=== PATIENT | male | born 1955 | race Caucasian/White ===

== ENCOUNTER 2016-12-24 19:26 | Emergency (ER) | payer OTHER ==
[~2016-12-24] VITALS: Ht 165.1 cm; Wt 83.5 kg
[~2016-12-24 19:26] MED LIST: ASPI81TA28 PO; CHOL100010 PO; HYD50 PO; LAMO1TAB21 PO; LEVO25TA5 PO; LISI-461 PO; LRS20 PO; MELO7.5T5 PO; METO-478 PO; OXYC-57 PO; PANT40TA2 PO; POTA20TA13 PO; PRAV40TA2 PO; RANI300T PO; SUMA100T16 PO
[2016-12-24 19:33] VITALS: TEMP 36.6; Ht 165.1 cm; Wt 83.5 kg
[2016-12-24] MEDS ORDERED: METOCLOPRAMIDE HCL INJ 5 MG/ML 2 ML VIAL IV STA (19:51)
[2016-12-24] MEDS ORDERED: DiphenhydrAMINE HCL 50 MG/ML VIAL IV STA (19:51)
[2016-12-24] MEDS ORDERED: SODIUM CHLORIDE 0.9% 1000ML 1,000 ML IV STA (19:51)
[2016-12-24] MEDS ORDERED: DEXAMETHASONE SOD INJ 4 MG/ML VIAL IV STA (19:51)
[2016-12-24] MEDS ORDERED: MoRPHine SULFATE 10 MG/ML CARP/VIAL IV STA (19:51)
[2016-12-24] MEDS ORDERED: CHOL1TAB76 PO (20:07)
[2016-12-24 21:25] VITALS: BP 139/83; PULSE 64; O2SAT 97
--- NOTE | 2016-12-25 02:07 | EMERGENCY ROOM VISIT NOTE ---
History Report prepared by Tasha: Richard Rollins Under the Supervision of: Dr. Ruddy Rea M.D. First contact with patient: 19:37 Chief Complaint: HEADACHE Stated Complaint: MIRGRAINE History of Present Illness The patient is a 61 year old male who presents to the Emergency Room with complaints of a constant migraine headache that began this afternoon, several hours prior to arrival. The patient is also complaining of nausea, but has not vomited. The patient's states that he has not eaten much throughout the day today. He denies any loss of consciousness or fevers. The patient has a history of migraine headaches and states that this episode is very similar to those that he has had in the past. He took Percocet, Imitrex, and Naproxen for his symptoms , without any relief. The patient has followed with pain management, who recently discharged him to the medical center as they say there is nothing more that can be done for him at this time. 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 A total of ten systems were reviewed and were otherwise negative. Past Medical & Surgical Medical Problems: (1) Acute renal failure syndrome (2) Benign hypertension (3) Candidiasis of the esophagus (4) Cervical Disc Degen (5) Cervical Spinal Stenosis (6) Cervical Spondylosis (7) Chronic back pain (8) Esophageal Reflux (9) Excessive cerumen in ear canal (10) Increased lipid (11) Jaw pain (12) Migraine (13) Migraine (14) Migraine (15) Migraine (16) Sleep apnea (17) Trigeminal neuralgia Social History Problems: (1) Cervical Spondylosis Family History Patient reports no known family medical history. Social History Smoking Status: Never Smoker Drug Use: none Marital Status: Housing Status: lives with family Occupation Status: employed Current/Historical Medications Scheduled Aspirin (Aspirin Ec), 81 MG PO DAILY Baclofen (Baclofen), 20 MG PO HS Cholecalciferol (D 2000), 2,000 UNITS PO DAILY Hydrochlorothiazide (Hydrochlorothiazide), 25 MG PO DAILY Lamotrigine (Lamotrigine), 100 MG PO BID Levothyroxine Sodium (Levothyroxine Sodium), 25 MCG PO DAILY Lisinopril (Lisinopril), 10 MG PO DAILY Metoprolol Succinate (Toprol Xl), 25 MG PO DAILY Pantoprazole (Pantoprazole Sodium), 40 MG PO DAILY Potassium Chloride Microencaps (Potassium Chloride Er), 20 MEQ PO DAILY Pravastatin Sodium (Pravastatin Sodium), 40 MG PO DAILY Ranitidine Hcl (Zantac), 300 MG PO BID Sumatriptan Succinate (Imitrex), 100 MG PO PRN Scheduled PRN Meloxicam (Mobic), 7.5 MG PO BID PRN for Oxycodone/Acetaminophen 5MG/325MG (Percocet 5MG/325MG), 1-2 TABLETS PO for Pain Allergies Coded Allergies: No Known Allergies (Unverified , 12/24/16) Physical Exam Vital Signs Date Time Temp Pulse Resp B/P Pulse Ox O2 Delivery O2 Flow Rate FiO2 12/24/16 21:25 64 18 139/83 97 Room Air 12/24/16 19:33 36.6 67 20 135/77 98 Room Air Physical Exam GENERAL: Awake, alert, uncomfortable appearing, no distress HENT: Normocephalic, atraumatic. TM's normal. Oropharynx unremarkable. EYES: PERRL. EOMI. Normal conjunctiva. Sclera non-icteric. NECK: Supple. No nuchal rigidity. FROM. No JVD or bruit. RESPIRATORY: CTA CARDIAC: RRR. No murmur. ABDOMEN: Soft, non distended. No tenderness to palpation. No rebound or guarding. No masses. RECTAL: Deferred. MUSCULOSKELETAL: Unremarkable. No edema. No discoloration. Gross motor strength symmetric. NEURO: Cranial nerves 2-12 grossly intact. Normal sensorium. No sensory or motor deficits noted. Speech normal. No pronator drift. SKIN: No rash or jaundice noted. LYMPH: No adenopathy. Medical Decision & Procedures Medications Administered Medications (Trade) Dose Ordered Sig/Christiano Route Start Time Stop Time Status Last Admin Dose Admin Sodium Chloride (Nss 1000ml) 1,000 ml @ 999 mls/hr Q1H1M STAT IV 12/24/16 19:51 12/24/16 20:51 DC 12/24/16 19:51 999 MLS/HR Metoclopramide HCl (Reglan Inj) 10 mg NOW STAT IV 12/24/16 19:51 12/24/16 19:54 DC 12/24/16 20:02 10 MG Diphenhydramine HCl (Benadryl Inj) 25 mg NOW STAT IV 12/24/16 19:51 12/24/16 19:54 DC 12/24/16 20:03 25 MG Dexamethasone Sodium Phosphate (Decadron Inj) 10 mg NOW STAT IV 12/24/16 19:51 12/24/16 19:54 DC 12/24/16 20:03 10 MG Morphine Sulfate (MoRPHine SULFATE INJ) 6 mg NOW STAT IV 12/24/16 19:51 12/24/16 19:54 DC 12/24/16 20:02 6 MG ED Course 1941: The patient was evaluated in room B6. A complete history and physical exam was performed. 1950: Ordered Morphine 6 mg IV, Decadron 10 mg IV, Benadryl 25 mg IV, Reglan 10 mg IV, Sodium Chloride 1000 mL @ 999 mL/hr IV. 2030: I checked on the patient at this time. He is starting to feel better following his medications. He would like to rest longer in the Department at this time. 2126: I reevaluated the patient. Discussed results and discharge instructions: He verbalized understanding and agreement. The patient is ready for discharge. Medical Decision Prior records/ancillary studies reviewed. Triage Nursing notes reviewed and agree them. The patient's history was concerning for headache. Differential diagnosis: Etiologies such as migraine headache, meningitis, sinusitis, CO exposure, ICH, SAH, infection, tumor, headache, sinus thrombosis, arterial dissection, as well as others were entertained. Physical examination findings: As above. Non-focal. ER treatment provided: IV Reglan 10 mg IV Benadryl 25 mg IV Decadron 10 mg IV morphine 6 mg On reassessment the patient felt much better. He desired discharge. Diagnostics interpreted by me: Deferred The patient has a long history of migraines. He does well managing himself at home and has had only a few visits to the emergency department over the last several years. He was treated with similar medications he has received in the past and did very well with this. The patient felt comfortable with conservative management. If He worsens in anyway he will come back. By the evaluation outlined above emergent etiologies such as meningitis, sinusitis, CO exposure, ICH, SAH, infection, temporal arteritis, tumor, sinus thrombosis, arterial dissection, as well as others were deemed relatively unlikely. The patient and were informed about the findings as listed above. All questions were answered and they were pleased with the treatment. Return instructions were outlined and the patient was discharged in stable condition. Outpatient prescription management: No change Referral: The patient was referred back to his neurologist or primary care physician for follow-up in 2 to 3 days for a recheck of the current condition. The chart was completed utilizing [employer] Speech voice recognition software. Grammatical errors, random word insertions, pronoun errors, and incomplete sentences are an occasional consequence of this system due to software limitations, ambient noise, and hardware issues. Any formal questions or concerns about the content, text, or information contained within the body of this dictation should be directly addressed to the physician for clarification. Impression Primary Impression: Headache Scribe Attestation The scribe's documentation has been prepared under my direction and personally reviewed by me in its entirety. I confirm that the note above accurately reflects all work, treatment, procedures, and medical decision making performed by me. Departure Information Dispostion Home / Self-Care Referrals (PCP) Forms HOME CARE DOCUMENTATION FORM, IMPORTANT VISIT INFORMATION Patient Instructions My [facility] Additional Instructions HEADACHE INSTRUCTIONS: DO NOT drive, drink alcohol, operate machinery, or perform dangerous activities today. You were given medications in the ER that can affect your ability to safely function or operate a vehicle. Rest today in a quiet, peaceful, dark environment and get a full 8-10 hrs of sleep tonight. Avoid loud noises, smoke/smoking, alcohol, bright lights, stress, or physical exertion today to minimize the chance the headache may return. Continue current medications. Ibuprofen(Motrin, Advil) may be used for fever or pain. Use 600mg every six hours as needed. Take with food. Avoid using more than 2400mg in a 24 hour period. Do not use 2400mg per day for more than three consecutive days without physician direction. Prolonged inappropriate use can lead to stomach upset or ulcers. (AND/OR) Acetaminophen(Tylenol) may be used for fever or pain. Use 1000mg every six hours as needed. Avoid using more than 4000mg in a 24 hour period. Return to the ER for passing out, worsening headache, vision problems, neck stiffness/pain, fevers, vomiting, worsening of your condition, or as needed. Follow up with your primary physician or neurologist in 2-3 days for a recheck of your current condition. Problem Qualifiers Primary Impression: Headache Headache type: unspecified Headache chronicity pattern: acute headache Intractability: not intractable Qualified Codes: R51 - Headache
== END 2016-12-24 21:55 | disposition home or self-care (01) ==
LOC: C.EDB 19:27
DX: R51 Headache (principal); R11.0 Nausea; G47.30 Sleep apnea, unspecified

== ENCOUNTER → 2017-02-11 | Outpatient (CLI) | payer OTHER ==
[~2017-02-11] MED LIST changes: -CHOL100010 PO; +CHOL1TAB76 PO
[2017-02-11 13:39] LABS: ALT/SGPT 27 U/L (12-78); AST/SGOT 16 U/L (15-37); BLOOD UREA NITROGEN 26 mg/dl (7-18); BUN/CREATININE RATIO 19.7 (10-20); CARBON DIOXIDE 31 mmol/L (21-32); CHLORIDE 104 mmol/L (98-107); GLUCOSE 89 mg/dl (70-99); MAGNESIUM 2.1 mg/dl (1.8-2.4); POTASSIUM 4.1 mmol/L (3.5-5.1); SODIUM 141 mmol/L (136-145)
[2017-02-11 13:46] LABS: ALB/GLOB RATIO 1.2 (0.9-2); ALKALINE PHOSPHATASE 29 U/L (45-117); CHOLESTEROL 169 mg/dl (0-200); CHOLESTEROL/HDL RATIO 4.4; HDL CHOLESTEROL 38 mg/dl; LDL CHOLESTEROL CALCULATED 83 mg/dl; TRIGLYCERIDES 240 mg/dl (0-150); VERY LOW DENSITY LIPOPROT CALC 48 mg/dl
== END | disposition home or self-care (01) ==
LOC: C.LABPVFM 09:34
PROVIDERS: ATTEND Family Medicine
DX: E03.9 Hypothyroidism, unspecified (principal); I10 Essential (primary) hypertension; M54.2 Cervicalgia; E78.1 Pure hyperglyceridemia; K21.9 Gastro-esophageal reflux disease without esophagitis

== ENCOUNTER → 2017-09-21 | Outpatient (CLI) | payer OTHER ==
[~2017-09-21] VITALS: Ht 165.1 cm; Wt 88.1 kg
[2017-09-21 15:39] VITALS: BP 124/75; PULSE 82; Ht 165.1 cm; Wt 88.1 kg
== END | disposition home or self-care (01) ==
LOC: C.NEUR 15:23
PROVIDERS: ATTEND Physician Assistant
DX: G47.33 Obstructive sleep apnea (adult) (pediatric) (principal)

== ENCOUNTER → 2017-12-29 | Outpatient (CLI) | payer OTHER ==
[2017-12-29 13:05] LABS: BASO % 0.8 %; BASO ABS # 0.03 K/uL (0-0.2); EOS % 4.1 %; EOS ABS # 0.15 K/uL (0-0.5); HEMATOCRIT 36.8 % (42-52); HEMOGLOBIN 12.3 g/dL (14.0-18.0); LYMPH % 21.5 %; LYMPH ABS # 0.79 K/uL (1.2-3.4); MEAN CELL VOLUME 87.8 fL (80-100); MEAN CORPUSCULAR HEMOGLOBIN 29.4 pg (25-34); MEAN CORPUSCULAR HGB CONC 33.4 g/dl (32-36); MEAN PLATELET VOLUME 10.1 fL (7.4-10.4); MONO ABS # 0.59 K/uL (0.11-0.59); NEUT % 57.6 %; NEUT ABS # 2.12 K/uL (1.4-6.5); PLATELET COUNT 249 K/uL (130-400); RED CELL DISTRIBUTION WIDTH CV 13.9 % (11.5-14.5); RED CELL DISTRIBUTION WIDTH SD 44.2 fL (36.4-46.3); WHITE BLOOD COUNT 3.68 K/uL (4.8-10.8)
[2017-12-29 13:54] LABS: BLOOD UREA NITROGEN 27 mg/dl (7-18); CARBON DIOXIDE 28 mmol/L (21-32); CREATININE 1.67 mg/dl (0.60-1.40); GLUCOSE 98 mg/dl (70-99); POTASSIUM 4.1 mmol/L (3.5-5.1); SODIUM 136 mmol/L (136-145)
== END | disposition home or self-care (01) ==
LOC: C.LABPVFM 07:39
PROVIDERS: ATTEND Family Medicine
DX: C44.90 Unspecified malignant neoplasm of skin, unspecified (principal)

== ENCOUNTER 2020-11-14 14:53 | Inpatient (IN) ==
[2020-11-14] MEDS ORDERED: ONDANSETRON INJ 2 MG/ML 2 ML VIAL IV STA (15:22)
[2020-11-14] MEDS ORDERED: MoRPHine SULFATE 4 MG/ML 1 ML CARP\\VIAL IV STA (15:22)
[2020-11-14] MEDS ORDERED: SODIUM CHLORIDE 0.9% 1000ML 1,000 ML IV SCH (15:30)
[2020-11-14] MEDS ORDERED: FAMOTIDINE 20MG IV PUSH 20 MG/5 ML SYR IV STA (15:33)
--- NOTE | 2020-11-14 15:46 | XRay Report ---
XR chest 1V portable CLINICAL HISTORY: Chest Pain COMPARISON STUDY: Chest radiograph November 07, 2020. FINDINGS: Lung volumes are normal. Lungs are clear. There is no pneumothorax or pleural effusion. Car diac size is normal. Mediastinal contours are normal. There is no evidence for pulmonary edema. IMPRESSION: No acute cardiopulmonary findings. ACT 112: Negative or not required by law. Electronically signed by: Hector Lazar M.D. 11/14/2020 3:44 PM
[2020-11-14 15:50] LABS: Basophils # (auto) 0.01 K/uL (0-0.2); Basophils % (auto) 0.1 %; Eosinophils # (auto) 0.05 K/uL (0-0.5); Eosinophils % (auto) 0.4 %; Hematocrit (blood only) 37.8 % (42-52); Hemoglobin 13.1 g/dL (14.0-18.0); Immature Granulocytes # (auto) 0.02 K/uL (0.00-0.02); Immature Granulocytes % (auto) 0.2 %; Lymphocytes # (auto) 0.65 K/uL (1.2-3.4); Lymphocytes % (auto) 5.5 %; Mean Corpuscular Hemoglobin 29.9 pg (25-34); Mean Corpuscular Hgb Conc 34.7 g/dL (32-36); Mean Corpuscular Volume 86.3 fL (80-100); Mean Platelet Volume 9.5 fL (7.4-10.4); Monocytes # (auto) 1.08 K/uL (0.11-0.59); Monocytes % (auto) 9.1 %; Neutrophils # (auto) 10.01 K/uL (1.4-6.5); Neutrophils % (auto) 84.7 %; Platelet Count 371 K/uL (130-400); RDW Coefficient of Variation 13.1 % (11.5-14.5); RDW Standard Deviation 41.4 fL (36.4-46.3); Red Blood Count 4.38 M/uL (4.7-6.1); White Blood Count 11.82 K/uL (4.8-10.8)
[2020-11-14] MEDS ORDERED: OPTIRAY 320 100ml IV ONE (15:56)
--- NOTE | 2020-11-14 15:59 | Emergency Department Note ---
Impression & Plan Acute pancreatitis, Abdominal pain ED Provider Note NAME: LEIDY FUENTES AGE: 65 SEX: M : 1955 ARRIVES VIA: Walk-In INFORMANT: Patient, ED PROVIDER(S): Ferdinand Chavez DO CHIEF COMPLAINT: Abdominal pain HPI: The patient is a 65-year-old male who presented to the emergency department for an evaluation of abdominal pain. The patient describes abdominal pain which began yesterday and into today. He states the pain is moderate to severe and worsened with any movement or palpation over the abdomen. He notices nausea. He notices no diarrhea. He has not had a fever. He denies having any chest pain or difficulty breathing at this time. He was seen in our facility recently for different complaints. The patient had chest pain and was diagnosed with bronchitis. At that time the patient was started on steroids. He has no history of peptic ulcer disease. He took some of his significant other his pain medication with only minimal relief of his pain. He denies having any rectal bleeding or hematemesis. He states he tried to take his medications this morning and it did make the pain somewhat worse. ROS: See above HPI for pertinent positives & negatives. A total of 10 systems reviewed and were otherwise negative. PAST MEDICAL HISTORY: See Below PAST SURGICAL HISTORY: See Below FAMILY HISTORY: See Below SOCIAL HISTORY: See Below HOME MEDICATIONS: See Below ALLERGIES: See Below VITALS: See Below PHYSICAL EXAMINATION: GENERAL: The patient is awake and alert. He is very anxious appearing and appears to be in significant pain. EYES: The conjunctivae are clear. The pupils are round and reactive. EARS, NOSE, MOUTH AND THROAT: The nose is without any evidence of any deformity. NECK: The neck is nontender and supple. RESPIRATORY: Normal respiratory effort is noted there is no evidence of wheezing rhonchi or rales CARDIOVASCULAR: Regular rate and rhythm noted there no murmurs rubs or gallops normal S1 normal S2. GASTROINTESTINAL: The abdomen is moderately distended and diffusely tender. There is some guarding in the lower abdomen. MUSCULOSKELETAL/EXTREMITIES: There is no evidence of gross deformity full range of motion is noted in the hips and shoulders. SKIN: There is no obvious evidence of any rash. There are no petechiae, pallor or cyanosis noted. NEUROLOGIC: Patient is awake alert and oriented x3. MEDICAL DECISION MAKING: The patient is a 65-year-old male who presented to the emergency department with upper abdominal pain. The patient presented with acute onset of abdominal pain over the last 24 hours. His physical exam was very worrisome for surgical abdomen. He was guarding across the lower abdomen. He was treated with IV fluids and IV pain medication in the emergency department. He was also treated with IV Pepcid. On reevaluation he was somewhat improved. I discussed the patient's laboratory and radiographic studies with him. CT the abdomen and pelvis appeared to be consistent with pancreatitis. Lipase was very elevated. The patient does not drink alcohol. The patient does not appear to have any abnormalities in his LFTs. Given the patient's findings on CT as well as laboratory [facility] They will evaluate the patient in the emergency department for further management and disposition. Triage Nursing notes reviewed. Prior medical records reviewed Vital Signs: reviewed and remarkable for no significant abnormalities Differential diagnosis: Etiologies such as appendicitis, diverticulitis, obstruction, inflammatory bowel disease, renal colic, PUD, biliary pathology, pancreatitis, mesenteric ischemia, aortic pathology, infections, genitourinary, UTI, perforated viscus, as well as others were entertained. ER treatment provided: See below Diagnostics interpreted by me: ECG: EKG was obtained in the emergency department. My interpretation is sinus bradycardia at 58 bpm. There was no ectopy. There was no acute ST segment abnormalities. This was compared to a tracing from November 07, 2020. No significant changes were noted. Cardiac Monitoring: An order was placed for continuous cardiac monitoring. The monitor shows a rate of 82 bpm with sinus rhythm. Laboratory studies: As stated above and show below. Imaging studies: See below Consultation(s): [id number]: I discussed this case with Dr. Fleming who is on-call for the [facility] hospitalist group. 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 Beliefs That Will Affect Care: None marital status: Current Living Situation: Spouse current occupational status: employed Feels Safe at Home: Yes caffeine: Yes Dental Care, Regularly: Yes Physical Activity Frequency: Daily Seatbelt Use: never Sunscreen Use: Yes Assistive Devices: Glasses Allergies Allergies Allergy/AdvReac Type Severity Reaction Status Date / Time No Known Allergies Allergy Verified 11/14/20 16:14 Home Meds Home Medications Medication Instructions Recorded Confirmed Nicotinamide Supplement 500 mg PO QPM 11/25/19 11/14/20 Slow-Mag 71.5 mg PO QAM 11/25/19 11/14/20 albuterol sulfate 2 inh INHALATION Q6H PRN 11/14/20 11/14/20 atorvastatin 20 mg PO QPM 11/14/20 11/14/20 levothyroxine 25 mcg PO QPM 11/14/20 11/14/20 lisinopril 10 mg PO QPM 11/14/20 11/14/20 oxycodone-acetaminophen [Percocet] 1 - 2 tab PO DAILY PRN 11/14/20 11/14/20 Previous Rx's Medication Instructions Recorded metoprolol succinate 25 mg 25 mg PO DAILY #30 tab 06/15/20 tablet,extended release 24 hr omeprazole 40 mg capsule,delayed 40 mg PO DAILY #30 cap 07/06/20 release potassium chloride 20 mEq 20 meq PO QAM #30 tab 07/21/20 tablet,extended release fenofibrate nanocrystallized 145 145 mg PO QAM #30 tab 11/23/20 mg tablet hydrochlorothiazide 50 mg tablet 50 mg PO QAM #90 tab 09/21/20 levofloxacin 750 mg tablet 750 mg PO DAILY 7 Days #7 tab 11/10/20 prednisone 20 mg tablet See Rx Instructions PO .COMPLEX 11/10/20 #30 tab Results & Data (ED) Vital Signs Vital Signs - 24 hr 11/14/20 15:01 11/14/20 15:46 11/14/20 15:48 Temperature 36.8 C Temperature Source Oral Pulse Rate 79 Pulse Rate [Apical] 72 Pulse Rate from SpO2 Sensor Pulse Rhythm Regular Pulse Strength Normal Respiratory Rate 18 24 Respiratory Effort / Characteristics Non-Labored Spontaneous Respiratory Depth Normal Normal Respiratory Pattern Regular Blood Pressure 120/65 Blood Pressure [Right Arm] 132/79 Blood Pressure Mean 83 Blood Pressure Mean [Right Arm] 96 Blood Pressure Position Sitting Pulse Oximetry 97 99 Oxygen Delivery Method Room Air Room Air Room Air Sepsis Recent Fever Within 48 Hours No Sepsis New/Unexplained Change in Mental Status N/A Sepsis Action Taken by Nursing No Action Required 11/14/20 16:05 Temperature Temperature Source Pulse Rate 63 Pulse Rate [Apical] Pulse Rate from SpO2 Sensor 61 Pulse Rhythm Pulse Strength Respiratory Rate 19 Respiratory Effort / Characteristics Respiratory Depth Respiratory Pattern Blood Pressure Blood Pressure [Right Arm] Blood Pressure Mean Blood Pressure Mean [Right Arm] Blood Pressure Position Pulse Oximetry 100 Oxygen Delivery Method Room Air Sepsis Recent Fever Within 48 Hours Sepsis New/Unexplained Change in Mental Status Sepsis Action Taken by [facility] Medications Current Medication List: was personally reviewed by me Laboratory Data Attestation: I reviewed the patient's lab results. Result diagrams: 11/14/20 15:37 11/14/20 15:37 Lab Results 11/14/20 11/14/20 11/14/20 Range/Units 15:37 15:37 15:37 WBC 11.82 H (4.8-10.8) K/uL RBC 4.38 L (4.7-6.1) M/uL Hgb 13.1 L (14.0-18.0) g/dL POC Hgb (14.0-18.0) g/dl Hct 37.8 L (42-52) % POC Hct (42-52) % MCV 86.3 (80-100) fL MCH 29.9 (25-34) pg MCHC 34.7 (32-36) g/dL RDW Std Deviation 41.4 (36.4-46.3) fL RDW Coeff of Uyen 13.1 (11.5-14.5) % Plt Count 371 (130-400) K/uL MPV 9.5 (7.4-10.4) fL Immature Gran % (Auto) 0.2 % Neut % (Auto) 84.7 % Lymph % (Auto) 5.5 % [place] % (Auto) 9.1 % Eos % (Auto) 0.4 % Baso % (Auto) 0.1 % Neut # (Auto) 10.01 H (1.4-6.5) K/uL Lymph # (Auto) 0.65 L (1.2-3.4) K/uL [place] # (Auto) 1.08 H (0.11-0.59) K/uL Eos # (Auto) 0.05 (0-0.5) K/uL Baso # (Auto) 0.01 (0-0.2) K/uL Immature Gran # (Auto) 0.02 (0.00-0.02) K/uL PT 10.9 (9.0-12.0) Seconds INR 1.1 (0.9-1.1) APTT 25.1 (21.0-31.0) Seconds PTT Ratio 1.0 POC Sodium (135-144) mmol/L Sodium 139 (136-145) mmol/L POC Potassium (3.3-5.0) mmol/L Potassium 3.5 (3.5-5.1) mmol/L POC Chloride (101-112) mmol/L Chloride 107 (98-107) mmol/L Carbon Dioxide 25 (21-32) mmol/L POC Total CO2 (24-31) mmol/L Anion Gap 7.0 (3-11) POC Anion Gap (16-25) mmol/L POC BUN (7-18) mg/dl BUN 27 H (7-18) mg/dl Creatinine 1.34 (0.6-1.4) mg/dl POC Creatinine (0.6-1.3) mg/dl Est Cr Clr Drug Dosing Not Reportable Est GFR ( Amer) 64.4 Est GFR (Non-Af Amer) 55.6 BUN/Creatinine Ratio 20.3 H (10-20) Glucose 87 (70-99) mg/dl POC Glucose (other) (70-99) mg/dl Calcium 8.8 (8.5-10.1) mg/dl POC Ioniz Calcium Michelle (1.12-1.32) mmol/l Total Bilirubin 0.5 (0.2-1) mg/dl AST 8 L (15-37) U/L ALT 19 (12-78) U/L Alkaline Phosphatase 21 L (45-117) U/L Troponin I < 0.015 (0-0.045) ng/ml Total Protein 7.4 (6.4-8.2) gm/dl Albumin 3.5 (3.4-5.0) gm/dl Globulin 3.9 (2.5-4.0) gm/dl Albumin/Globulin Ratio 0.9 (0.9-2) Lipase 32716 H (73-393) U/L COVID-19 Eval Order 11/14/20 11/14/20 Range/Units 15:42 16:53 WBC (4.8-10.8) K/uL RBC (4.7-6.1) M/uL Hgb (14.0-18.0) g/dL POC Hgb 12.9 L (14.0-18.0) g/dl Hct (42-52) % POC Hct 38 L (42-52) % MCV (80-100) fL MCH (25-34) pg MCHC (32-36) g/dL RDW Std Deviation (36.4-46.3) fL RDW Coeff of Uyen (11.5-14.5) % Plt Count (130-400) K/uL MPV (7.4-10.4) fL Immature Gran % (Auto) % Neut % (Auto) % Lymph % (Auto) % [place] % (Auto) % Eos % (Auto) % Baso % (Auto) % Neut # (Auto) (1.4-6.5) K/uL Lymph # (Auto) (1.2-3.4) K/uL [place] # (Auto) (0.11-0.59) K/uL Eos # (Auto) (0-0.5) K/uL Baso # (Auto) (0-0.2) K/uL Immature Gran # (Auto) (0.00-0.02) K/uL PT (9.0-12.0) Seconds INR (0.9-1.1) APTT (21.0-31.0) Seconds PTT Ratio POC Sodium 138 (135-144) mmol/L Sodium (136-145) mmol/L POC Potassium 3.5 (3.3-5.0) mmol/L Potassium (3.5-5.1) mmol/L POC Chloride 104 (101-112) mmol/L Chloride (98-107) mmol/L Carbon Dioxide (21-32) mmol/L POC Total CO2 25 (24-31) mmol/L Anion Gap (3-11) POC Anion Gap 13.0 L (16-25) mmol/L POC BUN 26 H (7-18) mg/dl BUN (7-18) mg/dl Creatinine (0.6-1.4) mg/dl POC Creatinine 1.2 (0.6-1.3) mg/dl Est Cr Clr Drug Dosing Est GFR ( Amer) Est GFR (Non-Af Amer) BUN/Creatinine Ratio (10-20) Glucose (70-99) mg/dl POC Glucose (other) 92 (70-99) mg/dl Calcium (8.5-10.1) mg/dl POC Ioniz Calcium Michelle 1.19 (1.12-1.32) mmol/l Total Bilirubin (0.2-1) mg/dl AST (15-37) U/L ALT (12-78) U/L Alkaline Phosphatase (45-117) U/L Troponin I (0-0.045) ng/ml Total Protein (6.4-8.2) gm/dl Albumin (3.4-5.0) gm/dl Globulin (2.5-4.0) gm/dl Albumin/Globulin Ratio (0.9-2) Lipase (73-393) U/L COVID-19 Eval [facility] Administered Medications Discontinued Medications Sodium Chloride (Nss 1000ml) 1,000 mls @ 999 mls/hr IV .Q1H1M VITALIY Stop: 11/14/20 16:30 Last Infusion: 11/14/20 16:59 Dose: 0 mls/hr Documented by: [id number] Admin: 11/14/20 15:36 Dose: 999 mls/hr Documented by: [id number] Famotidine (Pepcid 20mg Iv Push) 20 mg in 5 mls @ 2.5 mls/min IV NOW STA Stop: 11/14/20 15:34 Last Admin: 11/14/20 15:42 Dose: 2.5 mls/min Documented by: [id number] Ioversol (Ioversol 100ml) 92 ml IV ONCE ONE Stop: 11/14/20 15:57 Last Admin: 11/14/20 15:56 Dose: 92 ml Documented by: [id number] Morphine Sulfate (Morphine Sulfate 4 Mg/Ml 1 Ml Carp\Vial) 4 mg IV NOW STA Stop: 11/14/20 15:23 Last Admin: 11/14/20 15:42 Dose: 4 mg Documented by: [id number] Ondansetron HCl (Ondansetron Inj 2 Mg/Ml 2 Ml Vial) 4 mg IV NOW STA Stop: 11/14/20 15:23 Last Admin: 11/14/20 15:42 Dose: 4 mg Documented by: [id number] Imaging Data Radiologist's Impression: Patient: LEIDY FUENTES Admit Date: 11/14/20 MR#: [id number] Address1: [address] [place] [address] Acct ID:[id number] Address2: [facility] [address] Date: 1955 [facility] Zip: [place] [address] Age: 65 Location: ED Sex: M Room/Bed: Att Phy: Diagnosis: SEVERE ABD PAIN,NAUSEA Penny Phy: Lisa Russo MD Service Date: 11/14/20 [facility] Phy: Interpreting Phy: Hector Lazar MD Admit Phy: Ordering Phy: Ferdinand Chavez DO cc: ~ XR chest 1V portable CLINICAL HISTORY: Chest Pain COMPARISON STUDY: Chest radiograph November 07, 2020. FINDINGS: Lung volumes are normal. Lungs are clear. There is no pneumothorax or pleural effusion. Cardiac size is normal. Mediastinal contours are normal. There is no evidence for pulmonary edema. IMPRESSION: No acute cardiopulmonary findings. ACT 112: Negative or not required by law. Electronically signed by: Hector Lazar M.D. 11/14/2020 3:44 PM Dictated: 11/14/20 1543 Transcribed: 11/14/20 1543 Patient: LEIDY FUENTES Admit Date: 11/14/20 MR#: [id number] Address1: [address] [place] [address] Acct ID:[id number] Address2: [address] Date: 1955 [facility] Zip: [place] [address] Age: 65 Location: ED Sex: M Room/Bed: Att Phy: Diagnosis: SEVERE ABD PAIN,NAUSEA Penny Phy: Lisa Russo MD Service Date: 11/14/20 [facility] Phy: Interpreting Phy: Hector Lazar MD Admit Phy: Ordering Phy: Ferdinand Chavez DO cc: ~ CT OF THE ABDOMEN AND PELVIS WITH CONTRAST CLINICAL HISTORY: Abdominal pain. Back pain. COMPARISON STUDY: CT of the abdomen August 04, 2008. TECHNIQUE: Following IV administration of 92 mL of Optiray-320, axial images of the abdomen and pelvis were obtained from the lung bases to the proximal femurs. Images were reviewed in the axial, sagittal, and coronal planes. IV contrast was administered without complication. Automated exposure control was utilized for the study. A dose lowering technique was utilized adhering to the principles of ALARA. CT DOSE: 499.30 mGy.cm FINDINGS: Lung bases are unremarkable. No pneumatosis, free air or portal venous gas is present. There is probable hepatic steatosis. There is no biliary or pancreatic ductal dilatation. The pancreas is edematous and there is moderate peripancreatic fluid which extends into the mesentery. There is trace fluid within the pelvis. No well-defined peripancreatic fluid collections are present. The pancreas enhances homogeneously. Major vasculature is patent. The spleen and adrenal glands are unremarkable. Numerous water attenuation bilateral renal lesions reflect cysts. There is an indeterminate 1 cm lesion within the anterior cortex of the lower pole of the right kidney on image 193 of 466. There is no hydronephrosis. Colonic diverticulosis is noted without evidence for acute diverticulitis. There is no evidence for a bowel obstruction. There is no lymphadenopathy. No suspicious osseous lesions are present. Multilevel degenerative changes within lumbar spine are incidentally noted. IMPRESSION: 1. Findings consistent with acute pancreatitis. Edematous pancreas with peripancreatic fluid. No evidence for necrosis. No peripancreatic fluid collections. 2. Indeterminate 1 cm right lower pole renal lesion. This may reflect a small solid renal lesion or complex cyst. A nonemergent renal protocol MRI as an outpatient is recommended. 3. Colonic diverticulosis without evidence for acute diverticulitis. ACT 112: Positive. There are findings on this exam that require communication between the performing entity and the patient following Patient Test Result Information Act ([place] Act 112) guidelines. Electronically signed by: Hector Lazar M.D. 11/14/2020 4:16 PM Dictated: 11/14/201604 Transcribed: 11/14/201604 Blood Pressure Blood Pressure Findings: Normal blood pressure Discharge Plan Visit Data Chief Complaint: Abdominal Pain Stated Complaint: SEVERE ABD PAIN,NAUSEA ED Provider: Ferdinand Chavez Discharge Problem: Acute pancreatitis, Abdominal pain Patient Disposition: Being Evaluated by Hospitalist Condition: Good Forms Stand Alone Forms: [facility] [place] Prescriptions Prescriptions: No Action metoprolol succinate 25 mg tablet extended release 24 hr 25 mg PO DAILY Qty: 30 RF: 5 omeprazole 40 mg capsule,delayed release(DR/EC) 40 mg PO DAILY Qty: 30 RF: 5 potassium chloride 20 mEq tablet extended release 20 meq PO QAM Qty: 30 RF: 5 fenofibrate nanocrystallized 145 mg tablet 145 mg PO QAM Qty: 30 RF: 5 hydrochlorothiazide 50 mg tablet 50 mg PO QAM Qty: 90 RF: 0 levofloxacin 750 mg tablet 750 mg PO DAILY 7 Days Qty: 7 RF: 0 prednisone 20 mg tablet See Rx Instructions PO .COMPLEX Qty: 30 RF: 0 atorvastatin 20 mg tablet 20 mg PO QPM RF: 0 levothyroxine 25 mcg tablet 25 mcg PO QPM RF: 0 oxycodone-acetaminophen [Percocet] 5-325 mg tablet 1 - 2 tab PO DAILY PRN (Reason: Pain) RF: 0 lisinopril 10 mg tablet 10 mg PO QPM RF: 0 albuterol sulfate 90 mcg/actuation HFA aerosol inhaler 2 inh inhalation Q6H PRN (Reason: Shortness Of Breath Or Wheezing) RF: 0 Slow-Mag 71.5 mg Tablet,Delayed Release (Dr/Ec) 71.5 mg PO QAM RF: 0 Nicotinamide Supplement capsule 500 mg PO QPM RF: 0 Referrals Referrals: Lisa Russo MD [Primary Care Provider] - Discharge Problem: Acute pancreatitis Qualifiers: Pancreatitis type: unspecified pancreatitis type Acute pancreatitis complication: unspecified Qualified Code(s): K85.90 - Acute pancreatitis without necrosis or infection, unspecified Abdominal pain Qualifiers: Abdominal location: generalized Qualified Code(s): R10.84 - Generalized a bdominal pain
[2020-11-14 16:00] LABS: iSTAT Creatinine 1.2 mg/dl (0.6-1.3); iSTAT Hemoglobin 12.9 g/dl (14.0-18.0); iSTAT Ionized Calcium 1.19 mmol/l (1.12-1.32); iSTAT Potassium 3.5 mmol/L (3.3-5.0)
[2020-11-14 16:05] LABS: INR 1.1 (0.9-1.1); Partial Thromboplastin Time 25.1 Seconds (21.0-31.0); Prothrombin Time 10.9 Seconds (9.0-12.0)
[2020-11-14 16:09] LABS: Alanine Aminotransferase 19 U/L (12-78); Albumin Level 3.5 gm/dl (3.4-5.0); Aspartate Aminotransferase 8 U/L (15-37); BUN Creatinine Ratio 20.3 (10-20); Blood Urea Nitrogen 27 mg/dl (7-18); Calcium 8.8 mg/dl (8.5-10.1); Carbon Dioxide 25 mmol/L (21-32); Chloride 107 mmol/L (98-107); Est GFR (African American) 64.4; Est GFR (Non-African American) 55.6; Glucose 87 mg/dl (70-99); Potassium 3.5 mmol/L (3.5-5.1); Sodium 139 mmol/L (136-145)
[2020-11-14 16:13] LABS: Albumin Globulin Ratio 0.9 (0.9-2); Alkaline Phosphatase 21 U/L (45-117); Bilirubin,Total 0.5 mg/dl (0.2-1); Globulin 3.9 gm/dl (2.5-4.0); Lipase 10495 U/L (73-393); Total Protein 7.4 gm/dl (6.4-8.2); Troponin I < 0.015 ng/ml (0-0.045)
--- NOTE | 2020-11-14 16:18 | CT Scan Report ---
CT OF THE ABDOMEN AND PELVIS WITH CONTRAST CLINICAL HISTORY: Abdominal pain. Back pain. COMPARISON STUDY: CT of the abdomen August 04, 2008. TECHNIQUE: Following IV administration of 92 mL of Optiray-320, axial images of the abdomen and pelvi s were obtained from the lung bases to the proximal femurs. Images were reviewed in the axial, sagitt al, and coronal planes. IV contrast was administered without complication. Automated exposure contro l was utilized for the study. A dose lowering technique was utilized adhering to the principles of A EPHRAIM. CT DOSE: 499.30 mGy.cm FINDINGS: Lung bases are unremarkable. No pneumatosis, free air or portal venous gas is present. Ther e is probable hepatic steatosis. There is no biliary or pancreatic ductal dilatation. The pancreas is edematous and there is moderate peripancreatic fluid which extends into the mesentery. There is trac e fluid within the pelvis. No well-defined peripancreatic fluid collections are present. The pancreas enhances homogeneously. Major vasculature is patent. The spleen and adrenal glands are unremarkable. Numerous water attenuation bilateral renal lesions reflect cysts. There is an indeterminate 1 cm les ion within the anterior cortex of the lower pole of the right kidney on image 193 of 466. There is no hydronephrosis. Colonic diverticulosis is noted without evidence for acute diverticulitis. There is no evidence for a bowel obstruction. There is no lymphadenopathy. No suspicious osseous lesions are p resent. Multilevel degenerative changes within lumbar spine are incidentally noted. IMPRESSION: 1. Findings consistent with acute pancreatitis. Edematous pancreas with peripancreatic fluid. No evid ence for necrosis. No peripancreatic fluid collections. 2. Indeterminate 1 cm right lower pole renal lesion. This may reflect a small solid renal lesion or c omplex cyst. A nonemergent renal protocol MRI as an outpatient is recommended. 3. Colonic diverticulosis without evidence for acute diverticulitis. ACT 112: Positive. There are findings on this exam that require communication between the performing entity and the patient following Patient Test Result Information Act ([place] Act 112) guidelines. Electronically signed by: Hector Lazar M.D. 11/14/2020 4:16 PM
[2020-11-14] MEDS ORDERED: SODIUM CHLORIDE 0.9% 1000ML 1,000 ML IV ONE (17:06)
--- NOTE | 2020-11-14 17:19 | History & Physical Report ---
Date of Service November 14, 2020 Assessment & Plan (1) Acute pancreatitis: [place]-Imrie 2 - low risk for severe pancreatitis ?idiopathic vs. iatrogenic. On multiple class III medications implicated in pancreaitits however only new class III medication was prednisone but doubtful this caused his pancreaitits. NPO, IV fluids Dilaudid for pain, ondansetron for nausea (2) Renal lesion: Outpatient nonemergent renal protocol MRI recommended (3) ADALGISA (obstructive sleep apnea): CPAP HS (4) Gastro-esophageal reflux: Switch omeprazole for pantoprazole per hospital formulary (5) HTN (hypertension): Hold HCTZ due to dehydrated state with pancreatitis. Continue lisinopril (6) Hyperlipidemia: Continue atorvastatin 20mg PO daily (7) Hypothyroidism: TSH 1.43 in July. No need to repeat this. Continue levothyroxine 25 mcg PO daily (8) Acute bronchitis: Hold Levaquin and prednisone as major current issue is his pancreatitis. No pneumonia or wheezing to suggest need for these. Admission and Anticipated Discharge Date Admission Date: November 14, 2020 History of Present Illness Chief Complaint: Abdominal pain Primary Care Provider: Lisa Russo MD Mark Lyle is a 65-year-old male who presents to the ER with epigastric pain. He reports this started yesterday after eating a pizza for lunch with his oxycodone and recently prescribed Levaquin. Epigastric pain without radiation, better on lying still and pain medication given in the emergency room. Severity 10/10 at worst, currently 2/10. Pain lasted throughout the night, progressively getting worse with associated nausea today. He denies any vomiting, change in bowels, bright red blood in stool or melena. Along with the epigastric pain he is also had an exacerbation of his usual mild chronic back pain which is midline with no radiation. He was recently seen in the ER 7 days ago with a persistent cough that would not improve. He was prescribed azithromycin for bronchitis at that time. 2 days later he was called by his PCP and he reported no having any improvement therefore he was started on prednisone and Levaquin. In the ER lipase was elevated at 10,495 U/L. Liver enzymes were normal. CT abdomen pelvis with IV contrast showed findings consistent with acute pancreatitis without biliary or pancreatic ductal dilatation. He denies any alcohol or illicit drug use. Only new medications otherwise mentioned above. He reports taking prednisone previously without any side effects. He is referred to medicine for admission and ongoing management of acute pancreatitis. Allergies Allergy/AdvReac Type Severity Reaction Status Date / Time No Known Allergies Allergy Verified 11/14/20 16:14 Home Medications Medication Instructions Recorded Confirmed Type Nicotinamide Supplement 500 mg PO QPM 11/25/19 11/14/20 History Slow-Mag 71.5 mg PO QAM 11/25/19 11/14/20 History metoprolol succinate 25 mg 25 mg PO DAILY #30 tab 06/15/20 11/14/20 Rx tablet,extended release 24 hr omeprazole 40 mg capsule,delayed 40 mg PO DAILY #30 cap 07/06/20 11/14/20 Rx release potassium chloride 20 mEq 20 meq PO QAM #30 tab 07/21/20 11/14/20 Rx tablet,extended release fenofibrate nanocrystallized 145 145 mg PO QAM #30 tab 08/17/20 11/14/20 Rx mg tablet hydrochlorothiazide 50 mg tablet 50 mg PO QAM #90 tab 09/21/20 11/14/20 Rx levofloxacin 750 mg tablet 750 mg PO DAILY 7 Days #7 tab 11/10/20 11/14/20 Rx prednisone 20 mg tablet See Rx Instructions PO .COMPLEX 11/10/20 11/14/20 Rx #30 tab albuterol sulfate 2 inh INHALATION Q6H PRN 11/14/20 11/14/20 History atorvastatin 20 mg PO QPM 11/14/20 11/14/20 History levothyroxine 25 mcg PO QPM 11/14/20 11/14/20 History lisinopril 10 mg PO QPM 11/14/20 11/14/20 History oxycodone-acetaminophen [Percocet] 1 - 2 tab PO DAILY PRN 11/14/20 11/14/20 History Past Med/Surg History Medical History Cervical spondylosis Cervicalgia CKD (chronic kidney disease) NO SPECIALIST ED (erectile dysfunction) Gastro-esophageal reflux Heart attack LISTED ON ABOVE LIST BUT PT DENIES> STATES IT WAS HIS FATHER NOT HIM WITH THIS HX HTN (hypertension) Hyperlipidemia Hypothyroidism Left shoulder pain Lumbago Lumbar radiculopathy Migraine Obstructive sleep apnea of adult CPAP Osteoarthritis Thoracic radiculopathy Trigeminal neuralgia CURRENTLY WELL CONTROLLED Surgical History History of colonoscopy History of esophagogastroduodenoscopy (EGD) History of 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 Family History Father Myocardial infarction Diabetes Other No family history of adverse response to anesthesia No family history of bleeding disorder Denies family history of Ovarian cancer Prostate cancer Breast cancer Colorectal cancer Social History Smoking Status: Never smoker Second Hand Exposure: No; Hx Alcohol Use: No Hx Substance Use: No Preferred Language: Mohawk Communication Ability: Effective Respiratory Clinician Required: No Beliefs That Will Affect Care: None marital status: Current Living Situation: Spouse current occupational status: employed Other Information That Helps Us Care for You: No Feels Safe at Home: Yes Safety Concerns: Feels Safe At This Time caffeine: Yes Dental Care, Regularly: Yes Physical Activity Frequency: Daily Seatbelt Use: never Sunscreen Use: Yes Assistive Devices: None Review of Systems Review of Systems: All systems reviewed & are unremarkable except as noted in HPI & below Physical Exam Constitutional: well developed and well nourished; no acute distress Eyes: + anicteric sclerae; normal pupil size ENMT: external ear and nose normal, oropharynx normal Neck: trachea midline, no thyromegaly Respiratory: normal respiratory effort, lungs clear to auscultation Cardiovascular: RRR, no murmur, no edema Gastrointestinal (Abdomen): Inspection/Auscultation: normal bowel sounds Percussion/Palpation: + abdomen tender (Epigastric) and abdomen soft; no guarding and abdomen not rigid Musculoskeletal: no cyanosis or clubbing, extremities motor strength 5/5 Spine: + lumbar spinal tenderness Skin: no rashes, warm and dry Neurologic: moves all extremities and awake; not confused Psychiatric: A+Ox3, euthymic affect Genitourinary: no CVA tenderness Results & Data Results & Data ([facility]) Vital Signs (Past 12 Hours) Vital Signs Temp Pulse Pulse Resp BP BP Pulse Ox 11/14/20 17:00 71 12 129/79 98 11/14/20 16:30 62 17 119/79 99 11/14/20 16:05 63 19 100 11/14/20 15:48 72 24 132/79 99 11/14/20 15:01 36.8 C 79 18 120/[address] OF THE ABDOMEN AND PELVIS WITH CONTRAST IMPRESSION: 1. Findings consistent with acute pancreatitis. Edematous pancreas with peripancreatic fluid. No evidence for necrosis. No peripancreatic fluid collections. 2. Indeterminate 1 cm right lower pole renal lesion. This may reflect a small solid renal lesion or complex cyst. A nonemergent renal protocol MRI as an outpatient is recommended. 3. Colonic diverticulosis without evidence for acute diverticulitis. XR chest 1V portable IMPRESSION: No acute cardiopulmonary findings. Medications Administered ER medications given: Famotidine 20 mg IV Morphine 4 mg IV Ondansetron 4 mg IV NSS 1 hour bolus ECG Indication: abdominal pain Rate (beats per minute): 58 Rhythm: sinus bradycardia Findings: no acute ischemic change Comparison ECG Date: from (November 07, 2020) Change: no significant change PG Care Time/CCT Total # of Minutes Spent Total Time Spent with Patient: Total time spent is greater than 50% in coordination of care (as documented) at patient's floor/unit and/or counseling patient: Coding Level of Care Code 93533 Initial Inpt Care Lvl 3 Diagnoses Acute pancreatitis K85.90 Acute pancreatitis complication: unspecified Pancreatitis type: unspecified pancreatitis type Renal lesion N28.9 ADALGISA (obstructive sleep apnea) G47.33 Gastro-esophageal reflux K21.9 HTN (hypertension) I10 Hyperlipidemia E78.5 Hypothyroidism E03.9 Acute bronchitis J20.9 (1) Acute pancreatitis Acute pancreatitis complication: unspecified Pancreatitis type: unspecified pancreatitis type Qualified Code(s): K85.90 - Acute pancreatitis without necrosis or infection, unspecified
[2020-11-14] MEDS ORDERED: ACETAMINOPHEN 325 MG TAB PO PRN (18:39)
[2020-11-14] MEDS: HYDROmorphone INJ 0.5 MG/0.5 ML SYR IV PRN ×2 (18:49→21:35)
[2020-11-14] MEDS: ONDANSETRON INJ 2 MG/ML 2 ML VIAL IV PRN (19:28)
[2020-11-14] MEDS: SODIUM CHLORIDE 0.9% 1000ML 1,000 ML IV SCH (19:29)
[2020-11-14] MEDS ORDERED: LEVOTHYROXINE SODIUM 25 MCG TABLET PO SCH (21:00)
[2020-11-14] MEDS: ATORVASTATIN 20 MG TAB PO SCH (21:36)
[2020-11-14 22:23] LABS: Appearance Urine Clear (Clear); Bacteria Urine Automated Negative (Negative); Bilirubin Urine Negative (Negative); Blood Urine Trace (Negative); Cast Urine Automated 0 /lpf (0-5); Color Urine Yellow; Epithelial Cell Urine Auto 0-5 /lpf (0-5); Glucose Urine UA Negative (Negative); Ketones Urine Negative (Negative); Leukocyte Esterase Urine Negative (Negative); Nitrite Urine Negative (Negative); Protein Urine Negative (Negative); RBC Urine Automated 0-4 /hpf (0-4); Specific Gravity Urine > 1.045 (1.000-1.030); Urobilinogen Urine Negative (Negative)
[2020-11-15] MEDS: SODIUM CHLORIDE 0.9% 1000ML 1,000 ML IV SCH ×4 (01:36→21:22)
[2020-11-15] MEDS: HYDROmorphone INJ 0.5 MG/0.5 ML SYR IV PRN ×3 (05:07→11:47)
[2020-11-15] MEDS: LEVOTHYROXINE SODIUM 25 MCG TABLET PO SCH (05:08)
[2020-11-15 05:54] LABS: Basophils # (auto) 0.01 K/uL (0-0.2); Basophils % (auto) 0.1 %; Eosinophils # (auto) 0.22 K/uL (0-0.5); Eosinophils % (auto) 2.7 %; Hematocrit (blood only) 33.4 % (42-52); Hemoglobin 11.3 g/dL (14.0-18.0); Immature Granulocytes # (auto) 0.03 K/uL (0.00-0.02); Immature Granulocytes % (auto) 0.4 %; Lymphocytes # (auto) 0.84 K/uL (1.2-3.4); Lymphocytes % (auto) 10.3 %; Mean Corpuscular Hemoglobin 29.2 pg (25-34); Mean Corpuscular Hgb Conc 33.8 g/dL (32-36); Mean Corpuscular Volume 86.3 fL (80-100); Mean Platelet Volume 8.8 fL (7.4-10.4); Monocytes # (auto) 0.64 K/uL (0.11-0.59); Monocytes % (auto) 7.8 %; Neutrophils # (auto) 6.43 K/uL (1.4-6.5); Neutrophils % (auto) 78.7 %; Platelet Count 289 K/uL (130-400); RDW Coefficient of Variation 13.3 % (11.5-14.5); RDW Standard Deviation 41.8 fL (36.4-46.3); Red Blood Count 3.87 M/uL (4.7-6.1); White Blood Count 8.17 K/uL (4.8-10.8)
[2020-11-15 06:25] LABS: Albumin Level 2.9 gm/dl (3.4-5.0); BUN Creatinine Ratio 21.4 (10-20); Calcium 8.1 mg/dl (8.5-10.1); Creatinine Clr Calc Pharmacy 66.6 ml/min; Est GFR (African American) 82.7; Est GFR (Non-African American) 71.4; Potassium 3.5 mmol/L (3.5-5.1)
[2020-11-15 06:30] LABS: Albumin Globulin Ratio 0.9 (0.9-2); Bilirubin,Total 0.6 mg/dl (0.2-1); Globulin 3.3 gm/dl (2.5-4.0); Total Protein 6.2 gm/dl (6.4-8.2)
[2020-11-15] MEDS: FENOFIBRATE NANOCRYSTALLIZED 145 MG TABLET PO SCH (08:22)
[2020-11-15] MEDS: METOPROLOL SUCC 25MG EXT REL TAB PO SCH (08:22)
[2020-11-15] MEDS: PANTOprazole 40 MG TAB PO SCH (08:22)
[2020-11-15] MEDS: ONDANSETRON INJ 2 MG/ML 2 ML VIAL IV PRN ×3 (11:47→21:28)
--- NOTE | 2020-11-15 13:13 | Electrocardiogram Report ---
Test Reason : Blood Pressure : / mmHG Vent. Rate : 058 BPM Atrial Rate : 058 BPM P-R Int : 150 ms QRS Dur : 092 ms QT Int : 424 ms P-R-T Axes : 036 035 047 degrees QTc Int : 416 ms Sinus bradycardia Otherwise normal ECG When compared with ECG of 07-NOV-2020 09:47, No significant change was found Confirmed by Luciano Nunes ([id number]) on 11/15/2020 1:13:04 PM Referred By: Confirmed By:Shadi Nunes
[2020-11-15] MEDS: HYDROmorphone INJ 1 MG/ML SYRINGE IV PRN ×3 (14:31→22:02)
--- NOTE | 2020-11-15 17:37 | Hospitalist Progress Note ---
Date of Service November 15, 2020 Assessment & Plan (1) Acute pancreatitis: [place]-Imrie 2 - low risk for severe pancreatitis ?idiopathic vs. iatrogenic. On multiple class III medications implicated in pancreaitits however only new class III medication was prednisone, which can cause pancreatitis No hx of issues with use prior TG 201 CTAP neg for GB path NPO, IV fluids Dilaudid for pain, ondansetron for nausea (2) Renal lesion: Outpatient nonemergent renal protocol MRI recommended Of note, pt had noncontrast MRI of T/L spine done recently. It was noted for b/l renal lesions that were listed as likely cysts, however read as uncertain due to lack of contrast Pt notes hx of renal cancer in mother and anxiety regarding this finding I did discuss prior MRI findings with pt. He is aware that he will need to have a contrast MRI for better imaging once his pancreatitis is resolved (3) ADALGISA (obstructive sleep apnea): CPAP HS (4) Gastro-esophageal reflux: Switch omeprazole for pantoprazole per hospital formulary (5) HTN (hypertension): Hold HCTZ due to dehydrated state with pancreatitis. Continue lisinopril (6) Hyperlipidemia: Continue atorvastatin 20mg PO daily (7) Hypothyroidism: TSH 1.43 in July. No need to repeat this. Continue levothyroxine 25 mcg PO daily (8) Acute bronchitis: Hold Levaquin and prednisone as major current issue is his pancreatitis. No pneumonia or wheezing to suggest need for these. 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 Some nausea still, no emesis. Pt denies fever, SOB, chest pain, c/d, LE pain or swelling. Pt states he was started on prednisone on Monday for ongoing cough after being seen in the ED and with persisting sx. His PCP ordered levaquin and prednisone. He has used prednisone in the past without issue, but does note that his sx started a few days after starting these medications. His biggest concern at this time is his back pain. Pt has hx of herniated discs with recent worsening pain. He was to have an injection with PM last week, however this had to be cx due to abx use for bronchitis. Review of Systems Review of Systems: Pertinent positives and negatives reviewed in HPI--all others negative Physical Exam Constitutional: WD/WN, vitals as above Eyes: normal visual carbajal by confrontation and + anicteric sclerae Neck: normal visual inspection and trachea midline Respiratory: normal respiratory effort, lungs clear to auscultation Cardiovascular: Rate/Rhythm: regular rate and regular rhythm Gastrointestinal (Abdomen): Inspection/Auscultation: + abdomen distended Pe rcussion/Palpation: + abdomen tender (epigastric) and abdomen soft Musculoskeletal: Head/Neck/Chest: normocephalic and head atraumatic negative for edema, peripheral pulses intact Skin: no rashes, warm and dry Neurologic: awake; not confused Speech / Cognition: normal speech Psychiatric: A+Ox3, euthymic affect Results & Data Results & Data ([facility]) Vital Signs (Past 12 Hours) Vital Signs Temp Pulse Resp BP Pulse Ox 11/15/20 15:12 36.7 C 61 20 129/76 91 11/15/20 07:37 36.5 C 71 20 123/74 95 PG Care Time/CCT Total # of Minutes Spent Total Time Spent with Patient: Total time spent is greater than 50% in coordination of care (as documented) at patient's floor/unit and/or counseling patient: Coding Level of Care Code 56655 Subseq Hosp Care Lvl 3 Diagnoses Acute pancreatitis K85.90 Acute pancreatitis complication: unspecified Pancreatitis type: unspecified pancreatitis type Renal lesion N28.9 ADALGISA (obstructive sleep apnea) G47.33 Gastro-esophageal reflux K21.9 HTN (hypertension) I10 Hyperlipidemia E78.5 Hypothyroidism E03.9 Acute bronchitis J20.9 (1) Acute pancreatitis Acute pancreatitis complication: unspecified Pancreatitis type: unspecified pancreatitis type Qualified Code(s): K85.90 - Acute pancreatitis without necrosis or infection, unspecified
[2020-11-15] MEDS: ATORVASTATIN 20 MG TAB PO SCH (22:00)
[2020-11-16] MEDS: SODIUM CHLORIDE 0.9% 1000ML 1,000 ML IV SCH ×4 (02:34→23:02)
[2020-11-16] MEDS: HYDROmorphone INJ 1 MG/ML SYRINGE IV PRN ×4 (02:46→13:04)
[2020-11-16] MEDS: ONDANSETRON INJ 2 MG/ML 2 ML VIAL IV PRN ×2 (05:36→13:04)
[2020-11-16] MEDS ORDERED: METOCLOPRAMIDE HCL INJ 5 MG/ML 2 ML VIAL IV ONE (06:33)
[2020-11-16] MEDS: LEVOTHYROXINE SODIUM 25 MCG TABLET PO SCH (06:41)
[2020-11-16 07:24] LABS: BUN Creatinine Ratio 14.5 (10-20); Calcium 8.5 mg/dl (8.5-10.1); Creatinine Clr Calc Pharmacy 67.8 ml/min; Est GFR (African American) 84.6; Magnesium 1.9 mg/dl (1.8-2.4); Phosphorus 3.2 mg/dl (2.5-4.9); Potassium 3.2 mmol/L (3.5-5.1)
[2020-11-16] MEDS: FENOFIBRATE NANOCRYSTALLIZED 145 MG TABLET PO SCH (08:35)
[2020-11-16] MEDS: PANTOprazole 40 MG TAB PO SCH (08:35)
[2020-11-16] MEDS: METOPROLOL SUCC 25MG EXT REL TAB PO SCH (08:35)
[2020-11-16] MEDS: POTASSIUM CHLORIDE / WTR 10 MEQ/100 ML PLCT IV SCH ×3 (09:44→11:54)
[2020-11-16] MEDS ORDERED: PROMETHAZINE HCL 25 MG in SODIUM CHLORIDE 0.9% 50 ML IV PRN (14:17)
[2020-11-16] MEDS ORDERED: PROMETHAZINE HCL 25 MG in SODIUM CHLORIDE 0.9% 50 ML IV STA (14:19)
--- NOTE | 2020-11-16 17:29 | Hospitalist Progress Note ---
Date of Service November 16, 2020 Assessment & Plan (1) Acute pancreatitis: [place]-Imrie 2 - low risk for severe pancreatitis ?idiopathic vs. iatrogenic. On multiple class III medications implicated in pancreaitits however only new class III medication was prednisone, which can cause pancreatitis No hx of issues with use prior TG 201 CTAP neg for GB path NPO, IV fluids Dilaudid for pain, ondansetron for nausea Add phenergan for nausea (2) Renal lesion: Outpatient nonemergent renal protocol MRI recommended Of note, pt had noncontrast MRI of T/L spine done recently. It was noted for b/l renal lesions that were listed as likely cysts, however read as uncertain due to lack of contrast Pt notes hx of renal cancer in mother and anxiety regarding this finding I did discuss prior MRI findings with pt. He is aware that he will need to have a contrast MRI for better imaging once his pancreatitis is resolved (3) ADALGISA (obstructive sleep apnea): CPAP HS (4) Gastro-esophageal reflux: Switch omeprazole for pantoprazole per hospital formulary (5) HTN (hypertension): Hold HCTZ due to dehydrated state with pancreatitis. Continue lisinopril (6) Hyperlipidemia: Continue atorvastatin 20mg PO daily (7) Hypothyroidism: TSH 1.43 in July. No need to repeat this. Continue levothyroxine 25 mcg PO daily (8) Acute bronchitis: Hold Levaquin and prednisone as major current issue is his pancreatitis. No pneumonia or wheezing to suggest need for these. (9) Back pain: Pt was set for an injection with Dr. 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 He says he is able to wait longer in between pain med dosing. He is having intense back pain, which is his bigger pain concern today. Pt states he has a hx of nausea when he has an intense need to urinate at baseline and this seems worse today. The zofran had been working, but it does not seem to be today. He has not had recent emesis. Pt denies fever, SOB, chest pain, LE pain or swelling. Review of Systems Review of Systems: Pertinent positives and negatives reviewed in HPI--all others negative Physical Exam Constitutional: WD/WN, vitals as above Eyes: normal visual carbajal by confrontation and + anicteric sclerae Neck: normal visual inspection and trachea midline Respiratory: normal respiratory effort, lungs clear to auscultation Cardiovascular: Rate/Rhythm: regular rate and regular rhythm Gastrointestinal (Abdomen): Inspection/Auscultation: + abdomen distended (improving) Percussion/Palpation: + abdomen tender (epigastric) and abdomen soft Musculoskeletal: Head/Neck/Chest: normocephalic and head atraumatic Skin: no rashes, warm and dry Neurologic: awake; not confused Speech / Cognition: normal speech Psychiatric: A+Ox3, euthymic affect Results & Data Results & Data ([facility]) Vital Signs (Past 12 Hours) Vital Signs Temp Pulse Resp BP Pulse Ox 11/16/20 15:15 36.8 C 72 20 146/80 H 92 11/16/20 07:09 36.8 C 68 20 141/81 H 96 PG Care Time/CCT Total # of Minutes Spent Total Time Spent with Patient: Total time spent is greater than 50% in coordination of care (as documented) at patient's floor/unit and/or counseling patient: Coding Level of Care Code 25621 Subseq Hosp Care Lvl 3 Diagnoses Acute pancreatitis K85.90 Acute pancreatitis complication: unspecified Pancreatitis type: unspecified pancreatitis type Renal lesion N28.9 ADALGISA (obstructive sleep apnea) G47.33 Gastro-esophageal reflux K21.9 HTN (hypertension) I10 Hyperlipidemia E78.5 Hypothyroidism E03.9 Acute bronchitis J20.9 Back pain M54.9 (1) Acute pancreatitis Acute pancreatitis complication: unspecified Pancreatitis type: unspecified pancreatitis type Qualified Code(s): K85.90 - Acute pancreatitis without necrosis or infection, unspecified
[2020-11-16] MEDS: ATORVASTATIN 20 MG TAB PO SCH (20:43)
[2020-11-17] MEDS: HYDROmorphone INJ 1 MG/ML SYRINGE IV PRN ×3 (02:20→07:43)
--- NOTE | 2020-11-17 03:16 | Communication Note ---
Date of Service: November 17, 2020 Subjective: nursing notified me that the patient wanted to leave ama and had called his to come and pick him up. I talked to the patient and he was frustrated that he felt his back pain wasn't addressed, that his bed was not comfortable, that the CPAP that we have here is not working and he is afraid he will when he falls asleep, he also wanted to eat something. He was swearing and pacing and reaching at his mid back. Objective: VSS anxious affect A/P: - ordered a air mattress of the bed - pt. given prn pain medication - is bringubg patients CPAP - was given permission to come for 1 hour to try to calm the patient down - nursing and patient were informed to notify me if there were any other issues overnight
[2020-11-17] MEDS: SODIUM CHLORIDE 0.9% 1000ML 1,000 ML IV SCH ×2 (05:24→12:14)
[2020-11-17] MEDS: LEVOTHYROXINE SODIUM 25 MCG TABLET PO SCH (05:25)
[2020-11-17 08:06] LABS: BUN Creatinine Ratio 11.9 (10-20); Calcium 8.5 mg/dl (8.5-10.1); Creatinine Clr Calc Pharmacy 61.5 ml/min; Est GFR (African American) 75.1; Est GFR (Non-African American) 64.8; Magnesium 1.8 mg/dl (1.8-2.4); Phosphorus 3.3 mg/dl (2.5-4.9); Potassium 3.5 mmol/L (3.5-5.1)
[2020-11-17] MEDS: PANTOprazole 40 MG TAB PO SCH (08:31)
[2020-11-17] MEDS: FENOFIBRATE NANOCRYSTALLIZED 145 MG TABLET PO SCH (08:31)
[2020-11-17] MEDS: METOPROLOL SUCC 25MG EXT REL TAB PO SCH (08:32)
--- NOTE | 2020-11-17 14:21 | Discharge Summary ---
Date of Service November 17, 2020 Admission HPI Per Admitting Provider Mark Lyle is a 65-year-old male who presents to the ER with epigastric pain. He reports this started yesterday after eating a pizza for lunch with his oxycodone and recently prescribed Levaquin. Epigastric pain without radiation, better on lying still and pain medication given in the emergency room. Severity 10/10 at worst, currently 2/10. Pain lasted throughout the night, progressively getting worse with associated nausea today. He denies any vomiting, change in bowels, bright red blood in stool or melena. Along with the epigastric pain he is also had an exacerbation of his usual mild chronic back pain which is midline with no radiation. He was recently seen in the ER 7 days ago with a persistent cough that would not improve. He was prescribed azithromycin for bronchitis at that time. 2 days later he was called by his PCP and he reported no having any improvement therefore he was started on prednisone and Levaquin. In the ER lipase was elevated at 10,495 U/L. Liver enzymes were normal. CT abdomen pelvis with IV contrast showed findings consistent with acute pancreatitis without biliary or pancreatic ductal dilatation. He denies any alcohol or illicit drug use. Only new medications otherwise mentioned above. He reports taking prednisone previously without any side effects. He is referred to medicine for admission and ongoing management of acute pancreatitis. Principal Diagnosis Pt states he is feeling much improved today. He states that yesterday afternoon he stopped having abd pain and nausea and it has not returned. He states he feels much better now that he can get out of bed, as he feels the bed was aggravating his back pain. He tolerated clears for breakfast and a low fat lunch without any issue. Pt states he is not able to sleep here due to the beds. He states that last night he had a lot of trouble with the hospital provided CPAP as well. Between all of this and his back pain, he felt he just could not take being here any longer. He did apologize for his anger. Pt denies fever, SOB, chest pain, v/c/d, LE pain or swelling. Discharge Exam Constitutional WD/WN, vitals as above Eyes normal visual carbajal by confrontation and + anicteric sclerae Neck normal visual inspection and trachea midline Respiratory normal respiratory effort, lungs clear to auscultation Cardiovascular Rate/Rhythm: regular rate and regular rhythm Gastrointestinal (Abdomen) Inspection/Auscultation: abdomen not distended Percussion/Palpation: abdomen soft; abdomen nontender Musculoskeletal Head/Neck/Chest: normocephalic and head atraumatic Skin no rashes, warm and dry Neurologic awake; not confused Speech / Cognition: normal speech Psychiatric A+Ox3, euthymic affect Discharge Data Allergies Allergy/AdvReac Type Severity Reaction Status Date / Time No Known Allergies Allergy Verified 11/14/20 16:14 Consultations 11/14/20 16:21 ED Decision to Admit Stat Ordered Studies 11/14/20 15:22 CT abd pelvis IV con only Stat Hospital Course (1) Acute pancreatitis: Marta-Imrie 2 - low risk for severe pancreatitis ?idiopathic vs. iatrogenic. On multiple class III medications implicated in pancreatitis however only new class III medication was prednisone, which can cause pancreatitis No hx of issues with use prior TG 201 CTAP neg for GB path, abscess NPO, IV fluids Dilaudid for pain, ondansetron for nausea Add phenergan for nausea (2) Renal lesion: Outpatient nonemergent renal protocol MRI recommended Of note, pt had noncontrast MRI of T/L spine done recently. It was noted for b/l renal lesions that were listed as likely cysts, however read as uncertain due to lack of contrast Pt notes hx of renal cancer in mother and anxiety regarding this finding I did discuss prior MRI findings with pt. He is aware that he will need to have a contrast MRI for better imaging once his pancreatitis is resolved (3) ADALGISA (obstructive sleep apnea): CPAP HS (4) Gastro-esophageal reflux: Switch omeprazole for pantoprazole per hospital formulary (5) HTN (hypertension): Hold HCTZ due to dehydrated state with pancreatitis. Continue lisinopril (6) Hyperlipidemia: Continue atorvastatin 20mg PO daily (7) Hypothyroidism: TSH 1.43 in July. No need to repeat this. Continue levothyroxine 25 mcg PO daily (8) Acute bronchitis: Hold Levaquin and prednisone as major current issue is his pancreatitis. No pneumonia or wheezing to suggest need for these. (9) Back pain: Pt was set for an injection with Dr. Mckinley last week, however this had to be rescheduled due to the abx use He tells me this injection was to determine whether he would qualify for surgery in the future Total Time Total Time Spent Total Time Spent (In Minutes): >30 Total Time Includes: Examination of the Patient, Discharge Planning, Medication Reconciliation, Communication With Other Providers and Other Discharge Plan Discharge Items Patient Disposition: Home - Self-Care Reason For Visit: ACUTE PANCREATITIS Discharge Diagnosis: Pancreatitis Condition on Discharge: Good Activity: Resume your previous activity Non-emergency contact: Primary Care Provider Call non-emergency contact if: you have any medication questions, your symptoms worsen, your pain is not controlled, your pain is worsening and your pain is concerning for you Follow-up/Referrals: Lisa Russo MD [Primary Care Provider] - 11/24/20 11:30 am (1-2 weeks) Diet: Low Fat and Other - See Diet Comment Addtl Attending Provider Instructions: You should eat a simple diet for the next 1-2 weeks as your pancreas continues to heal. You should specifically avoid high fat, high carb, high sugar foods as they stimulate the pancreas the most. You should be seen by your PCP in the next 1-2 weeks At some point, you do need to have an MRI with contrast to look at your kidneys. As we discussed, the recent MRI you had suggested that the renal lesions were cysts, but they could not say for sure as that MRI was for your back and did not have contrast. Pending Studies at Discharge: No Stand-Alone Forms: My [facility] FOODit, Smoking Cessation Medications and DC Order Prescriptions: Continued metoprolol succinate 25 mg tablet extended release 24 hr 25 mg PO DAILY Qty: 30 RF: 5 omeprazole 40 mg capsule,delayed release(DR/EC) 40 mg PO DAILY Qty: 30 RF: 5 potassium chloride 20 mEq tablet extended release 20 meq PO QAM Qty: 30 RF: 5 fenofibrate nanocrystallized 145 mg tablet 145 mg PO QAM Qty: 30 RF: 5 hydrochlorothiazide 50 mg tablet 50 mg PO QAM Qty: 90 RF: 0 atorvastatin 20 mg tablet 20 mg PO QPM RF: 0 levothyroxine 25 mcg tablet 25 mcg PO QPM RF: 0 oxycodone-acetaminophen [Percocet] 5-325 mg tablet 1 - 2 tab PO DAILY PRN (Reason: Pain) RF: 0 lisinopril 10 mg tablet 10 mg PO QPM RF: 0 albuterol sulfate 90 mcg/actuation HFA aerosol inhaler 2 inh inhalation Q6H PRN (Reason: Shortness Of Breath Or Wheezing) RF: 0 Slow-Mag 71.5 mg Tablet,Delayed Release (Dr/Ec) 71.5 mg PO QAM RF: 0 Nicotinamide Supplement capsule 500 mg PO QPM RF: 0 Discontinued levofloxacin 750 mg tablet 750 mg PO DAILY 7 Days Qty: 7 RF: 0 prednisone 20 mg tablet See Rx Instructions PO .COMPLEX Qty: 30 RF: 0 Discharge Orders: Discharge Order (Routine); Ordered 11/17/20 Ordered By: Vandana Kelley/Other Patient Handouts: Discharge Instructions for Acute ... Admission Data Admit Date/Time: 11/14/20 17:31 Attending Provider: Vandana Lugo Admit Provider: Mani Fleming Primary Care Provider: Lisa Russo Other Providers: Mani Fleming Other Interventions: Discharge Summary Assessment (RN) Last Done: 11/17/20 14:27 Coding Level of Care Code D/C Day Management >30 mins Diagnoses Acute pancreatitis K85.90 Acute pancreatitis complication: unspecified Pancreatitis type: unspecified pancreatitis type Renal lesion N28.9 ADALGISA (obstructive sleep apnea) G47.33 Gastro-esophageal reflux K21.9 HTN (hypertension) I10 Hyperlipidemia E78.5 Hypothyroidism E03.9 Acute bronchitis J20.9 Back pain M54.9
== END 2020-11-17 15:11 | disposition home or self-care (01) | DRG 440 ==
LOC: ED 14:53 → SUATTDRO 17:31 → 3W 17:31

== ENCOUNTER 2025-01-03 09:51 | Inpatient (IN) ==
--- NOTE | 2024-12-09 11:34 | PAT Medication Instructions ---
Medication Instructions Date of Service December 09, 2024 Home Medications Medication Instructions Recorded fenofibrate nanocrystallized 145 145 mg PO QAM #30 tabs 08/17/ mg tablet hydrochlorothiazide 50 mg tablet 50 mg PO QAM #90 tabs 03/30/21 fenofibrate nanocrystallized 145 mg tablet 145 mg PO QAM levothyroxine 25 mcg tablet 25 mcg PO QAM aspirin 81 mg tablet,delayed release 81 mg PO QAM cholecalciferol (vitamin D3) 50 mcg (2,000 unit) capsule 50 mcg PO DAILY hydrochlorothiazide 50 mg tablet 50 mg PO QAM Brain Booster 1 tab PO BID Noreen 2 cap PO QAM 0 atorvastatin 80 mg tablet 80 mg PO QAM diclofenac sodium 1 % topical gel 2 g topical QID PRN Pain losartan 50 mg tablet 50 mg PO QAM metoprolol succinate 50 mg tablet,extended release 24 hr 50 mg PO QPM omeprazole 40 mg capsule,delayed release 40 mg PO QAM ondansetron 4 mg disintegrating tablet 4 mg PO Q6H PRN Nausea oxycodone-acetaminophen 10 mg-325 mg tablet 0.5 tab PO Q3H PRN Pain polyethylene glycol 3350 17 gram/dose oral powder (Miralax) 17 g PO DAILY STOP taking 2 weeks before surgery Brain Booster 1 tab PO BID Noreen 2 cap PO QAM STOP taking 48 hours before surgery fenofibrate nanocrystallized 145 mg tablet 145 mg PO QAM STOP taking 24 hours before surgery diclofenac sodium 1 % topical gel 2 g topical QID PRN Pain DO NOT take the morning of surgery cholecalciferol (vitamin D3) 50 mcg (2,000 unit) capsule 50 mcg PO DAILY hydrochlorothiazide 50 mg tablet 50 mg PO QAM losartan 50 mg tablet 50 mg PO QAM polyethylene glycol 3350 17 gram/dose oral powder (Miralax) 17 g PO DAILY Take morning of surgery With a small sip of water, OTHERWISE NOTHING TO EAT OR DRINK AFTER MIDNIGHT: levothyroxine 25 mcg tablet 25 mcg PO QAM aspirin 81 mg tablet,delayed release 81 mg PO QAM (unless surgeon directed otherwise) atorvastatin 80 mg tablet 80 mg PO QAM omeprazole 40 mg capsule,delayed release 40 mg PO QAM ondansetron 4 mg disintegrating tablet 4 mg PO Q6H PRN Nausea (if needed) oxycodone-acetaminophen 10 mg-325 mg tablet 0.5 tab PO Q3H PRN Pain (if needed) Take evening before surgery metoprolol succinate 50 mg tablet,extended release 24 hr 50 mg PO QPM ondansetron 4 mg disintegrating tablet 4 mg PO Q6H PRN Nausea (if needed) oxycodone-acetaminophen 10 mg-325 mg tablet 0.5 tab PO Q3H PRN Pain (if needed) Other Notes If you have any questions please call us at [phone] or [phone] or [phone] or [phone]
--- NOTE | 2024-12-13 10:43 | Anesthesiology Consultation ---
Date of Service December 13, 2024 Assessment & Plan (1) Encounter for pre-operative examination: Chart Review Chart Review: Acceptable Risk for Surgery (pending surgeon ordered PCP clearance) and Patient seen in Pre Admission Testing - Awaiting PCP clearance 12/18/24 (Dr Yonathan Hernandez [facility]) Per PAT appt on 12/13/24, no recent illness/disease exposures, illness related symptoms, or recent illness/disease positive tests. Will leave to surgeon's discretion if preop Covid testing needed Uvulectomy 11/29/19= Done under GA with Grade 1 view with MAC #3. ETT #7.5. Atraumatic DL x 1 Teaching & Discussion Pre-Anesthesia Teaching/Discussion Notes: Instructed NPO after midnight before surgery,except medications with 15 cc of water. Medication instructions provided according to the PAT guidelines. History Surgery Operation Date: 01/03/25 07:45 Proposed Procedures p L2-S1 Decompression and Fusion with Spinal Cord Monitoring - Evert Barth, Height/Weight Height: 5 ft 5 in Weight: 82.4 kg Allergies Allergy/AdvReac Type Severity Reaction Status Date / Time lisinopril AdvReac Intermediate dry cough Verified 12/03/24 12:24 Medications Home Medications Medication Instructions Recorded Confirmed Last Taken fenofibrate nanocrystallized 145 145 mg PO QAM #30 tabs 08/17/20 12/03/24 Unknown mg tablet levothyroxine 25 mcg tablet 25 mcg PO QAM 11/14/20 12/03/24 Unknown aspirin 81 mg tablet,delayed 81 mg PO QAM 12/01/20 12/03/24 Unknown release cholecalciferol (vitamin D3) 50 50 mcg PO DAILY 12/01/20 12/03/24 Unknown mcg (2,000 unit) capsule hydrochlorothiazide 50 mg tablet 50 mg PO QAM #90 tabs 03/30/21 12/03/24 Unknown Brain Booster 1 tab PO BID 12/03/24 12/03/24 Unknown Noreen 2 cap PO QAM 12/03/24 12/03/24 Unknown atorvastatin 80 mg tablet 80 mg PO QAM 12/03/24 12/03/24 Unknown diclofenac sodium 1 % topical gel 2 g topical QID PRN Pain 12/03/24 12/03/24 Unknown losartan 50 mg tablet 50 mg PO QAM 12/03/24 12/03/24 Unknown metoprolol succinate 50 mg 50 mg PO QPM 12/03/24 12/03/24 Unknown tablet,extended release 24 hr omeprazole 40 mg capsule,delayed 40 mg PO QAM 12/03/24 12/03/24 Unknown release ondansetron 4 mg disintegrating 4 mg PO Q6H PRN Nausea 12/03/24 12/03/24 Unknown tablet oxycodone-acetaminophen 10 mg-325 0.5 tab PO Q3H PRN Pain 12/03/24 12/03/24 Unknown mg tablet polyethylene glycol 3350 17 17 g PO DAILY 12/03/24 12/03/24 Unknown gram/dose oral powder (Miralax) Past Medical History Medical History (Updated 12/13/24 @ 13:34 by Gale Hernandez PA-C) Anaplasmosis hx ~2021 Cervical spondylosis Chronic back pain Chronic kidney disease stage 3 - monitors with PCP. Degenerative disc disease Degenerative joint disease Depression situational - in regards to his chronic pain. pt denies any feelings of hurting himself or others at this time. has had feelings of suicide in the past. Elevated hemoglobin A1c Hgb A1C 5.6 on 12/13/24 GERD (gastroesophageal reflux disease) well controlled and stable History of COVID-19 2019: loss of taste and smell. resolved. History of GI bleed ~2021 - EGD with cauterization Hx of acute pancreatitis treated at [facility] inpatient 10/2020 - no problems since. Hx of basal cell carcinoma Hx of Lyme disease ~2022 - treated at the time. Possible reason for chronic back pain Hx of migraines Hx of squamous cell carcinoma Hyperlipidemia Hypertension Hypothyroidism Osteoarthritis Sleep apnea cpap at night Trigeminal neuralgia currently controlled. Exercise / Class Metabolic Activity II 4-5 Yardwork/Stairs/Walk up hill (one flight of stairs- no chest pain or SOB) Past Family History Family History Father Myocardial infarction Diabetes Other No family history of adverse response to anesthesia No family history of bleeding disorder Denies family history of Ovarian cancer Prostate cancer Breast cancer Colorectal cancer Past Surgical History Surgical History H/O uvulectomy History of colonoscopy History of esophagogastroduodenoscopy (EGD) History of surgical removal of squamous cell carcinoma of skin of left gnosticism Pt states he had skin cancer surgeries- did not specify locations. S/P cervical spinal fusion C2-C6 (3 levels) Slightly restricted side to side. 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 pt unsure of any other details. Past Anesthesia History No Hx of Anesthesia Complications and No Family Hx of Anesthesia Complications History of PONV No Hx of Motion Sickness and History of PONV (- has been pre medicated with anti nausea medication in the best- effective ) Social History Smoking Status: Never smoker Do You Dip or Chew Tobacco: No Hx Alcohol Use: No Hx Substance Use: No substance use type: does not use Review of Systems - Mild SOB with lying flat on back- no issues with laying on side Patient denies chest pain, shortness of breath at rest, dyspnea on exertion, cough, wheezing, palpitations. No hx of seizures, stroke, HI. No hx of blood clots or blood transfusions Physical Exam Vital Signs VITALS BP 147/90 P 50bpm (pt denies any dizziness/syncope) TEMP 98.5 SP02 97% RESP 16 Constitutional no acute distress ENMT Mouth: no TMJ clicking Thyromental Distance: > or= 3.5 Finger Breadths (3.5) Mallampati Class: III Neck + limited neck extension Respiratory normal respiratory effort; no respiratory distress Auscultation: lungs clear to auscultation bilaterally; no wheezes Cardiovascular Rate/Rhythm: regular rate and regular rhythm Heart Sounds: no murmur Vessels: no carotid bruit Musculoskeletal Spine: + pain with cervical ROM Extremities: extremities normal to inspection Psychiatric Orientation: alert Lab Results Anesthesia Preop Results Results Anesthesia Widget: WBC 3.92 K/ul (4.8-10.8) L 12/13/24 Hgb 11.9 g/dl (14.0-18.0) L 12/13/24 Hct 34.5 % (42.0-52.0) L 12/13/24 Plt 258 K/uL (130-400) 12/13/24 Na 138 mmol/L (136-145) 12/13/24 K 4.2 mmol/L (3.5-5.1) 12/13/24 Cl 103 mmol/L (98-107) 12/13/24 CO2 29 mmol/L (21-32) 12/13/24 BUN 22 mg/dl (6-23) 12/13/24 Creat 1.35 mg/dl (0.6-1.4) 12/13/24 Glucose Level 92 mg/dl (70-99(Fasting)) 12/13/24 PT 11.3 Seconds (9.0-12.0) 12/13/24 PTT 26 Seconds (21-31) 12/13/24 INR 1.0 (0.9-1.1) 12/13/24 HA1c 5.6 % (4.5-5.6) 12/13/24 Urine Color Yellow 12/13/24 Urine Appearance Clear (Clear) 12/13/24 Urine pH 6.5 (4.5-7.5) 12/13/24 Urine Specific [place] 1.012 (1.000-1.030) 12/13/24 Urine Protein Negative (Negative) 12/13/24 Urine Glucose (UA) Negative (Negative) 12/13/24 Urine Ketones Negative (Negative) 12/13/24 Urine Blood Negative (Negative) 12/13/24 Urine Nitrite Negative (Negative) 12/13/24 Urine Bilirubin Negative (Negative) 12/13/24 Urine Urobilinogen Negative (Negative) 12/13/24 Urine Leukocyte Esterase Negative (Negative) 12/13/24 Blood Type A Positive 12/13/24 Antibody Screen NEGATIVE 12/13/24 Testing Electrocardiogram Date: 12/13/24 Findings: + SB @ (49bpm) Otherwise normal EKG per cardio Chest X-Ray Date: 12/13/24 Findings: + NAD
[2025-01-03] MEDS: LR 60ML/HR IV SCH (10:43)
[2025-01-03] MEDS: LACTATED RINGER'S 1,000 ML IV SCH (10:43)
[2025-01-03] MEDS: ACETAMINOPHEN 500 MG TAB PO SCH (10:44)
[2025-01-03] MEDS: CeleBREX 200 MG CAP PO SCH (10:44)
[2025-01-03] MEDS: GABAPENTIN 300 MG CAP PO SCH (10:44)
[2025-01-03] MEDS ORDERED: DEXAMETHASONE SOD INJ 4 MG/ML VIAL ONE (10:57)
[2025-01-03] MEDS ORDERED: LIDOCAINE 2% 2 ML VIAL/AMP(20MG/ML) INFIL ONE (10:57)
[2025-01-03] MEDS ORDERED: fentaNYL citrate PF 100 MCG/2 ML VIAL ONE ×2 (10:57→14:19)
[2025-01-03] MEDS ORDERED: MIDAZOLAM HCL 1 MG/ML 2ML VIAL ONE (10:57)
[2025-01-03] MEDS ORDERED: ROCURONIUM BROMIDE 10 MG/ML 5 ML VIAL IV ONE ×3 (10:57→14:21)
[2025-01-03] MEDS ORDERED: ONDANSETRON INJ 2 MG/ML 2 ML VIAL ONE (10:57)
[2025-01-03] MEDS ORDERED: PROPOFOL IV EMULSION 10 MG/ML 20 ML VIAL IV ONE ×2 (10:57→15:17)
--- NOTE | 2025-01-03 11:37 | History & Physical Bridge Note ---
Date of Service January 03, 2025 History & Physical Bridge Note I have examined the patient, reviewed the History & Physical and in the interval since the performance of the History & Physical I have noted the following changes of clinical significance: no changes noted
--- NOTE | 2025-01-03 11:38 | History & Physical Report ---
Date of Service January 03, 2025 Assessment & Plan (1) Two-level lumbosacral spondylosis with radiculopathy: Plan: L2-S1 decompression and fusion History of Present Illness Chief Complaint: Chronic back and leg pain Primary Care Provider: Yonathan Hernandez MD This is a 69-year-old male who presents with chronic persistent back and leg pain after failing course of nonoperative care is here for surgical intervention. Allergies Allergy/AdvReac Type Severity Reaction Status Date / Time lisinopril AdvReac Intermediate dry cough Verified 01/03/25 10:11 Home Medications Medication Instructions Recorded Confirmed Type fenofibrate nanocrystallized 145 145 mg PO QAM #30 tabs 08/17/20 01/03/25 Rx mg tablet levothyroxine 25 mcg tablet 25 mcg PO QAM 11/14/20 01/03/25 History aspirin 81 mg tablet,delayed 81 mg PO QAM 12/01/20 01/03/25 History release cholecalciferol (vitamin D3) 50 50 mcg PO DAILY 12/01/20 01/03/25 History mcg (2,000 unit) capsule hydrochlorothiazide 50 mg tablet 50 mg PO QAM #90 tabs 03/30/21 01/03/25 Rx Brain Booster 1 tab PO BID 12/03/24 01/03/25 History Noreen 2 cap PO QAM 12/03/24 01/03/25 History atorvastatin 80 mg tablet 80 mg PO QAM 12/03/24 01/03/25 History diclofenac sodium 1 % topical gel 2 g topical QID PRN Pain 12/03/24 01/03/25 History losartan 50 mg tablet 50 mg PO QAM 12/03/24 01/03/25 History metoprolol succinate 50 mg 50 mg PO QPM 12/03/24 01/03/25 History tablet,extended release 24 hr omeprazole 40 mg capsule,delayed 40 mg PO QAM 12/03/24 01/03/25 History release ondansetron 4 mg disintegrating 4 mg PO Q6H PRN Nausea 12/03/24 01/03/25 History tablet oxycodone-acetaminophen 10 mg-325 0.5 tab PO Q3H PRN Pain 12/03/24 01/03/25 History mg tablet polyethylene glycol 3350 17 17 g PO DAILY 12/03/24 01/03/25 History gram/dose oral powder (Miralax) Past Med/Surg History Problem List (Updated 01/03/25 @ 11:38 by Evert Barth DO) Two-level lumbosacral spondylosis with radiculopathy Environmental allergies Sleep disorder Renal lesion Lumbar radiculopathy Thoracic radiculopathy Weight loss Encounter for pre-operative examination Cervical spondylosis (Chronic) ADALGISA (obstructive sleep apnea) Uvular hypertrophy Left shoulder pain (Chronic) Obstructive sleep apnea of adult CPAP Gastro-esophageal reflux Trigeminal neuralgia CURRENTLY WELL CONTROLLED ED (erectile dysfunction) (Chronic) Hypothyroidism (Chronic) CKD (chronic kidney disease) (Chronic) NO SPECIALIST Skin cancer (Chronic) Cervicalgia (Chronic) Hyperlipidemia (Chronic) HTN (hypertension) (Chronic) Right shoulder pain (Chronic) Headache (Acute) Medical History (Updated 01/03/25 @ 11:38 by Evert Barth DO) Sarcoidosis Per PCP records- follows routinely with pulm Bronchiectasis Per PCP records- follows routinely with pulm Elevated hemoglobin A1c Hgb A1C 5.6 on 12/13/24 Degenerative joint disease Depression situational - in regards to his chronic pain. pt denies any feelings of hurting himself or others at this time. has had feelings of suicide in the past. Hx of Lyme disease ~2022 - treated at the time. Possible reason for chronic back pain Anaplasmosis hx ~2021 Hx of migraines Hx of acute pancreatitis treated at [facility] inpatient 10/2020 - no problems since. Chronic kidney disease stage 3 - monitors with PCP. Cervical spondylosis GERD (gastroesophageal reflux disease) well controlled and stable History of GI bleed ~2021 - EGD with cauterization History of COVID-19 2019: loss of taste and smell. resolved. Hyperlipidemia Hypertension Hypothyroidism Sleep apnea cpap at night Trigeminal neuralgia currently controlled. Degenerative disc disease Chronic back pain Hx of squamous cell carcinoma Hx of basal cell carcinoma Osteoarthritis Surgical History S/P cervical spinal fusion C2-C6 (3 levels) Slightly restricted side to side. 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 pt unsure of any other details. H/O uvulectomy History of esophagogastroduodenoscopy (EGD) History of colonoscopy History of surgical removal of squamous cell carcinoma of skin of left sikh Pt states he had skin cancer surgeries- did not specify locations. Family History Father Myocardial infarction Diabetes Other No family history of adverse response to anesthesia No family history of bleeding disorder Denies family history of Ovarian cancer Prostate cancer Breast cancer Colorectal cancer Social History Smoking Status: Never smoker Second Hand Exposure: No; Do You Dip or Chew Tobacco: No; Tobacco Cessation Education Requested by Patient: No Hx Alcohol Use: No Hx Substance Use: No Preferred Language: Sammarinese Communication Ability: Effective Lab Support Service Tech Required: No Beliefs That Will Affect Care: None marital status: Current Living Situation: Spouse current occupational status: employed Other Information That Helps Us Care for You: No Feels Safe at Home: Yes Safety Concerns: Feels Safe At This Time caffeine: Yes Dental Care, Regularly: Yes Physical Activity Frequency: Daily Seatbelt Use: never Sunscreen Use: Yes Assistive Devices: CPAP, Glasses and Hearing Aid - Bilateral Physical Exam Physical Exam: Patient is alert and oriented Heart regular rhythm lungs clear Results & Data Results & Data Vital Signs (Past 12 Hours) Vital Signs Temp Pulse Resp BP Pulse Ox O2 Del Method 01/03/25 10:12 36.7 C 54 L 18 156/81 H 97 Room Air
[2025-01-03] MEDS ORDERED: SODIUM CHLORIDE 0.9% PF INJ 10 ML VIAL ONE (12:14)
[2025-01-03] MEDS ORDERED: HYDROmorphone INJ 2 MG/ML SYR/VIAL ONE ×2 (12:14→15:28)
[2025-01-03] MEDS: ceFAZolin 2000MG 2,000 MG/15 ML SYR IV SCH ×2 (12:30→20:54)
[2025-01-03] MEDS ORDERED: ALBUMIN HUMAN 5% 12.5 GM/250 ML VIAL IV ONE (12:32)
[2025-01-03] MEDS: BUPIVACAINE/EPINEPHRINE 0.25% 1:200,000 30 ML VIAL ONE (12:40)
[2025-01-03] MEDS ORDERED: ePHEDrine sulfate 50 MG/5 ML SYR ONE (12:45)
[2025-01-03] MEDS: FLOSEAL HEMOSTATIC MATRIX 10ML TOP ONE (15:04)
[2025-01-03] MEDS: ceFAZolin 330 MG/ML 1 GM VIAL ONE (15:05)
[2025-01-03] MEDS ORDERED: SUGAMMADEX SODIUM 200 MG/2 ML VIAL IV ONE (15:08)
--- NOTE | 2025-01-03 15:21 | Operative Report ---
Post Operative Report Pre & Post Diagnosis Operation Date: 01/03/25 11:25 Pre-Op Diagnosis: #1 multilevel lumbar spondylosis with radiculopathy #2 lumbar spinal stenosis Post-Op Diagnosis: Same I identified the patient and participated in the time-out.: Yes Procedure Operation Date: 01/03/25 11:25 Actual Procedures #1 lumbar decompression with bilateral medial facetectomies and foraminotomies L2-L3, L3-L4, L4-5 and L5-S1. #2 posterior spinal fusion L2-S1. #3 placement posterior segmental instrumentation L2-S1 using camber. #4 interbody fusion L2- L3, L3-L4, L4-5 and L5-S1. #5 placement Spira 10 x 26 mm at L2-L3, 12 x 26 mm at L3-L4, 13 x 26 mm at L4-L5 and 12 x 26 mm x 2 at L5-S1. #6 placement of locally harvested morselized autograft and posterior gutters. #7 placement fuse collagen sponge, with Koros in the posterior lateral gutters and os design in the interbody space. #8 application of versa wrap of the exposed dura. Surgeon Evert Barth, Fuel System Maintenance Supervisor Hamilton Blanco Estimated Blood Loss 600 Findings Consistent with Post-Op Diagnosis Specimens None Indications This is a 69-year-old male presents publish diagnosis of failed course of nonoperative care is here for surgical invention. Description of Procedure Patient was met with identified informed consent obtained. Patient was then taken to the operative suite underwent intubation placed in a prone position on the Anand table atop the Robert frame. All bony prominences well-padded eyes inspected to ensure no external pressure placed upon them. This point lumbar spine was prepped and draped in a normal sterile fashion. Sharp dissection with the assistance of Bovie cautery performed down to and exposing the lamina and transverse processes of L2-L3 L4-5 and sacral ala bilaterally. From a caudal cephalad fashion complete laminectomy of L5 was performed including bilateral medial facetectomies and foraminotomies addressing severe cyst neural compression. This followed by complete laminectomy of L4 with bilateral medial facetectomies and foraminotomies again addressing severe neural compression. This is followed by complete laminectomy of L3 with bilateral medial facetectomies and foraminotomies addressing stenosis and neural compression. Lastly L2 was removed with bilateral facetectomies and foraminotomies addressing severe neural compression. Pedicle screws and placed in L2 L3-L4-L5 and S1 levels bilaterally with assistance of fluoroscopy and appropriate sized karen con toured and placed. By way of a transforaminal approach on the right I discectomy of L5-S1 was performed endplates guided to subcortical bleeding bone and a 12 x 26 mm spiral cage filled with os design bone graft tapped in position. Then proceeded to the left transforaminal region at L5-S1. Again discectomy performed. Endplates guided to subcortical meat bone and a second 12 x 26 mm spiral cage filled with os design bone graft tapped in position. Then proceeded L4-[address] of transforaminal approach on the right and complete discectomy was performed endplates corrected to subcortical bleeding bone and a 13 x 26 mm spiral cage filled with os sign tapped into position. Then proceeded L3-L4 by transforaminal approach on the right complete discectomy performed. Endplates guided to subcortical main bone and a 12 x 26 mm spiral cage filled with os design bone graft after position. Lastly approached L2-L3 and began by way of transforaminal approach complete discectomy was performed endplates guided to subcortical and bone and a 10 x 26 mm spiral cage filled with os design bone graft tapped into position. The rods were then locked in final position bilaterally. The transverse processes of L2-L3 L4-5 and sacral ala burred to subcortical the bone. Infuse collagen sponge, with Koros and local autograft placed in the posterior lateral gutters. Versa wrap placed over the exposed dura. 15 round DIANA drain inserted. The incision was then closed with 1 Vicryl in the fascia 2-0 Vicryl subcutaneously and 4 Monocryl for final skin closure. Steri-Strips and sterile dressing placed. Patient waken taken to PACU stable condition. Please note spinal cord monitoring was utilized at the procedure no changes noted. Lastly Hamilton Blanco was present at the entire surgery and while the patient positioning complex portion of the surgery and final skin closure. I attest to the content of the Intraoperative Record and any orders documented therein. Any exceptions are noted below.
--- NOTE | 2025-01-03 16:18 | Fluoroscopy Report ---
FL lumbar spine 2-3V CLINICAL HISTORY: L2-S1 Decompression and fusion COMPARISON STUDY: Lumbar spine MRI December 15, 2024. Fluoroscopy time: 42 seconds. Number of fluoroscopic images: 4. Ka,r: 32.00 mGy. FINDINGS: Fluoroscopy was provided during L2-S1 decompression with bilateral pedicle screw fusion and discectomy with interbody spacer placement. Hardware is intact. IMPRESSION: Fluoroscopy provided during L2-S1 decompression and fusion. ACT 112: Negative or not required by law. Electronically signed by: Hector Lazar M.D. 01/03/2025 4:16 PM
[2025-01-03] MEDS ORDERED: PROMETHAZINE HCL 6.25 MG in SODIUM CHLORIDE 0.9% 50 ML IV PRN (16:29)
[2025-01-03] MEDS ORDERED: FLUMAZENIL 0.1 MG/1 ML 10 ML VIAL IV PRN (16:29)
[2025-01-03] MEDS ORDERED: ATROPINE SULFATE 0.1 MG/ML 10ML SYR IV PRN (16:29)
[2025-01-03] MEDS ORDERED: ONDANSETRON INJ 2 MG/ML 2 ML VIAL IV PRN ×2 (16:29→18:11)
[2025-01-03] MEDS ORDERED: NALOXONE HCL 0.4 MG/1 ML VIAL/CARP IV PRN ×2 (16:29→18:11)
[2025-01-03] MEDS: fentaNYL citrate PF 100 MCG/2 ML VIAL IV PRN (16:29)
[2025-01-03] MEDS ORDERED: LABETALOL HCL IV 5 MG/ML 20ML IV PRN (16:29)
[2025-01-03] MEDS ORDERED: ePHEDrine sulfate 50 MG/ML AMP IV PRN (16:29)
--- NOTE | 2025-01-03 16:56 | Anesthesiology Progress Note ---
Date of Service January 03, 2025 Anesthesia Post Procedure Vital Signs Vital Signs: Temp Pulse Pulse Resp BP Pulse Ox O2 Del Method 01/03/25 16:40 86 14 114/68 98 Oxymask 01/03/25 16:30 80 12 117/67 97 Oxymask 01/03/25 16:20 81 12 118/65 97 Oxymask 01/03/25 16:10 96 H 19 124/86 98 Oxymask 01/03/25 16:00 98 H 16 114/84 100 Oxymask 01/03/25 15:50 87 14 117/77 100 Oxymask 01/03/25 15:43 36.5 C 84 14 110/66 99 Oxymask 01/03/25 10:12 36.7 C 54 L 18 156/81 H 97 Room Air O2 Flow Rate 01/03/25 16:40 2 01/03/25 16:30 2 01/03/25 16:20 2 01/03/25 16:10 2 01/03/25 16:00 5 01/03/25 15:50 5 01/03/25 15:43 5 01/03/25 10:12 Pain Intensity Back: Pain Intensity: 8 Transfer of Care Handoff Completed per policy Notes Mental Status: alert / awake / arousable Patient Amnestic to Procedure: Yes Nausea / Vomiting: adequately controlled Pain: adequately controlled Airway Patency, RR, SpO2: stable & adequate BP & HR: stable & adequate Hydration State: stable & adequate Anesthetic Complications: no major complications apparent and Pt Satisfied with anesthetic care
[2025-01-03] MEDS: HYDROmorphone INJ 1 MG/ML SYRINGE IV PRN ×2 (17:06→20:29)
[2025-01-03] MEDS ORDERED: bisacodyL 10 MG SUPP PR PRN (18:11)
[2025-01-03] MEDS ORDERED: LORazepam 2 MG/1 ML VIAL IV PRN (18:11)
[2025-01-03] MEDS ORDERED: PROMETHAZINE 12.5 MG/50.5 ML BAG IV PRN (18:11)
[2025-01-03] MEDS ORDERED: METOCLOPRAMIDE HCL INJ 5 MG/ML 2 ML VIAL IV PRN (18:11)
[2025-01-03] MEDS ORDERED: DO NOT ADMINISTER PNEUMOCOCCAL VACCINE PRN (18:11)
[2025-01-03] MEDS ORDERED: ACETAMINOPHEN 1,000 MG/100 ML VIAL IV PRN (18:11)
[2025-01-03] MEDS ORDERED: DO NOT ADMINISTER FLU VACCINE PRN (18:11)
[2025-01-03] MEDS ORDERED: SOD PHOSPHATE/SOD BIPHOSPHATE ENEMA 132 ML BTL PR PRN (18:11)
[2025-01-03] MEDS ORDERED: MAGNESIUM HYDROXIDE SUSP 30 ML UDC PO PRN (18:11)
[2025-01-03] MEDS ORDERED: ONDANSETRON 4 MG OD TAB PO PRN (18:11)
[2025-01-03] MEDS ORDERED: ALUMINUM/MAGNESIUM SUSP 30 ML UDC PO PRN (18:11)
[2025-01-03] MEDS ORDERED: diphenhydrAMINE Capsule 25 MG CAP PO PRN (18:11)
[2025-01-03] MEDS ORDERED: FAMOTIDINE 20 MG TAB PO PRN (18:11)
[2025-01-03] MEDS ORDERED: HYDROmorphone INJ 0.5 MG/0.5 ML SYR IV PRN (18:11)
[2025-01-03] MEDS: oxyCODONE HCL IR 5 MG TAB (IMMEDIATE RELEASE) PO PRN (18:35)
--- NOTE | 2025-01-03 19:32 | Consultation ---
Date of Consultation January 03, 2025 Assessment & Plan (1) S/P spinal surgery: Post op day# 0 S/P decompression and fusion L2-S1 by Dr Lary BOOTH#600ml Pain management per ortho Wound management per ortho PT/OT as appropriate DVT prophylaxis per ortho Incentive spirometry Monitor H&H for acute blood loss anemia. Preop Hgb: 11.9. Postop Hgb: 9.9 (2) HTN (hypertension): Hold home HCTZ, losartan and reassess tomorrow Continue metoprolol (3) Hyperlipidemia: Continue atorvastatin, fenofibrate (4) CKD (chronic kidney disease), stage III: Pre-op Cr: 1.3 Monitor renal functions, avoid nephrotoxic agents when possible (5) Hypothyroidism: Continue Synthroid (6) Gastro-esophageal reflux: Continue PPI (7) ADALGISA (obstructive sleep apnea): CPAP HS DVT Prophylaxis - Disposition per primary service Follows with Dr Yonathan Hernandez for routine care Pt was seen and care coordinated with Dr Newby. See addendum Thank you for this consultation. We will follow the patient with you during their hospital stay. You can reach a member of the [facility] Hospitalist Team 17/04 via [facility] Supervising Physician Co-Signing Physician Notes Care coordinated with Sun Blankenship PA-C. Agree with above note. Patient seen and examined. Please refer to her notes for full details. Vital signs reviewed. Physical exam: General exam: Alert and oriented. Not in acute distress. CVS: S1 and S2 heard, regular rate and rhythm, no murmurs. RS: Clear to auscultation, no wheezing or crackles. ABD: Soft, bowel sounds present, nontender, no distention. 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 Musculoskeletal s/p back surgery Labs: Reviewed. Assessment and plan:^* M is s/p back surgery. Complains of severe buring pain in right thigh regions and is worried that he might be having blood clot in that leg. Denies chest pain or sob. No nuasea. Afebrile. Hemodynamics ok s/p back surgery management as per ortho Right leg pain doppler negative pain control will monitor Other diagnosis and plan of care as per Sun Blankenship PA-C. . Chele young MD. History of Present Illness Requesting Physician: Dr Barth Reason for Consultation: Post op medical management Attending Physician: Evert Barth, DO History of Present Illness Patient is 69-year-old male with PMH HTN, dyslipidemia, CKD III, hypothyroidism, GERD, ADALGISA seen in medical consultation s/p S/P decompression and fusion L2-S1 today by Dr Barth. Post op patient reports having back pain and bilateral leg paresthesias. Has Giordano cath in place. Reports BM 1 day ago. Denies fever/chills, diaphoresis, N/V/D/C, [place], dizziness, CP, SOB, cough, rhinorrhea, abdominal pain, extremity weakness, extremity edema, rashes, urinary symptoms. Allergies Allergy/AdvReac Type Severity Reaction Status Date / Time lisinopril AdvReac Intermediate dry cough Verified 01/03/25 10:11 Home Medications Medication Instructions Recorded Confirmed Type fenofibrate nanocrystallized 145 145 mg PO QAM #30 tabs 08/17/20 01/03/25 Rx mg tablet levothyroxine 25 mcg tablet 25 mcg PO QAM 11/14/20 01/03/25 History aspirin 81 mg tablet,delayed 81 mg PO QAM 12/01/20 01/03/25 History release cholecalciferol (vitamin D3) 50 50 mcg PO DAILY 12/01/20 01/03/25 History mcg (2,000 unit) capsule hydrochlorothiazide 50 mg tablet 50 mg PO QAM #90 tabs 03/30/21 01/03/25 Rx Brain Booster 1 tab PO BID 12/03/24 01/03/25 History Noreen 2 cap PO QAM 12/03/24 01/03/25 History atorvastatin 80 mg tablet 80 mg PO QAM 12/03/24 01/03/25 History diclofenac sodium 1 % topical gel 2 g topical QID PRN Pain 12/03/24 01/03/25 History losartan 50 mg tablet 50 mg PO QAM 12/03/24 01/03/25 History metoprolol succinate 50 mg 50 mg PO QPM 12/03/24 01/03/25 History tablet,extended release 24 hr omeprazole 40 mg capsule,delayed 40 mg PO QAM 12/03/24 01/03/25 History release ondansetron 4 mg disintegrating 4 mg PO Q6H PRN Nausea 12/03/24 01/03/25 History tablet oxycodone-acetaminophen 10 mg-325 0.5 tab PO Q3H PRN Pain 12/03/24 01/03/25 History mg tablet polyethylene glycol 3350 17 17 g PO DAILY 12/03/24 01/03/25 History gram/dose oral powder (Miralax) Patient History Medical History Sarcoidosis Per PCP records- follows routinely with pulm Bronchiectasis Per PCP records- follows routinely with pulm Elevated hemoglobin A1c Hgb A1C 5.6 on 12/13/24 Degenerative joint disease Depression situational - in regards to his chronic pain. pt denies any feelings of hurting himself or others at this time. has had feelings of suicide in the past. Hx of Lyme disease ~2022 - treated at the time. Possible reason for chronic back pain Anaplasmosis hx ~2021 Hx of migraines Hx of acute pancreatitis treated at [facility] [place] inpatient 10/2020 - no problems since. Chronic kidney disease stage 3 - monitors with PCP. Cervical spondylosis GERD (gastroesophageal reflux disease) well controlled and stable History of GI bleed ~2021 - EGD with cauterization History of COVID-2019: loss of taste and smell. resolved. Hyperlipidemia Hypertension Hypothyroidism Sleep apnea cpap at night Trigeminal neuralgia currently controlled. Degenerative disc disease Chronic back pain Hx of squamous cell carcinoma Hx of basal cell carcinoma Osteoarthritis Surgical History S/P cervical spinal fusion C2-C6 (3 levels) Slightly restricted side to side. 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 pt unsure of any other details. H/O uvulectomy History of esophagogastroduodenoscopy (EGD) History of colonoscopy History of surgical removal of squamous cell carcinoma of skin of left yazdanism Pt states he had skin cancer surgeries- did not specify locations. Family History Father Myocardial infarction Diabetes Other No family history of adverse response to anesthesia No family history of bleeding disorder Denies family history of Ovarian cancer Prostate cancer Breast cancer Colorectal cancer Social History Smoking Status: Never smoker Second Hand Exposure: No; Do You Dip or Chew Tobacco: No; Tobacco Cessation Education Requested by Patient: No Hx Alcohol Use: No Hx Substance Use: No Preferred Language: Persian Communication Ability: Effective Testing Tech Required: No Beliefs That Will Affect Care: None marital status: Current Living Situation: Spouse current occupational status: employed Other Information That Helps Us Care for You: No Feels Safe at Home: Yes Safety Concerns: Feels Safe At This Time caffeine: Yes Dental Care, Regularly: Yes Physical Activity Frequency: Daily Seatbelt Use: never Sunscreen Use: Yes Assistive Devices: CPAP, Glasses and Hearing Aid - Bilateral Review of Systems Review of Systems: All systems reviewed & are unremarkable except as noted in HPI & below Physical Exam Physical Exam: General: mild distress secondary to discomfort, WDWN Head: normocephalic, atraumatic Eyes: conjunctiva non-injected, anicteric ENT: normal inspection external ears, nose, mucous membranes moist Neck: supple, trachea midline Lungs: clear, no respiratory distress, no wheezing/rhonchi/rales CV: RRR, no murmur, no pretibial edema Abd: normal BS, soft, non-tender Back: +DIANA drain in place with serosanguineous drainage Ext: no cyanosis, no calf tenderness; bilateral pedal pushes and pulls intact, sensation to light touch intact Neuro: A&O x 3, no focal deficits noted, normal affect Skin: warm, dry Results & Data Vital Signs (Past 12 Hours) Vital Signs Temp Pulse Pulse Resp BP Pulse Ox O2 Del Method 01/03/25 18:41 36.5 C 86 18 121/74 97 Nasal Cannula 01/03/25 18:22 Nasal Cannula 01/03/25 18:11 36.7 C 91 H 18 113/71 98 Nasal Cannula 01/03/25 17:45 82 14 117/67 98 Nasal Cannula 01/03/25 17:30 79 12 108/47 L 97 Nasal Cannula 01/03/25 17:20 76 12 105/52 L 97 Nasal Cannula 01/03/25 17:10 84 15 112/53 L 99 Nasal Cannula 01/03/25 17:00 81 12 120/62 98 Oxymask 01/03/25 16:50 36.4 C L 85 12 122/64 96 Oxymask 01/03/25 16:40 86 14 114/68 98 Oxymask 01/03/25 16:30 80 12 117/67 97 Oxymask 01/03/25 16:20 81 12 118/65 97 Oxymask 01/03/25 16:10 96 H 19 124/86 98 Oxymask 01/03/25 16:00 98 H 16 114/84 100 Oxymask 01/03/25 15:50 87 14 117/77 100 Oxymask 01/03/25 15:43 36.5 C 84 14 110/66 99 Oxymask 01/03/25 10:12 36.7 C 54 L 18 156/81 H 97 Room Air O2 Flow Rate 01/03/25 18:41 2 01/03/25 18:22 2 01/03/25 18:11 2 01/03/25 17:45 2 01/03/25 17:30 2 01/03/25 17:20 2 01/03/25 17:10 2 01/03/25 17:00 2 01/03/25 16:50 2 01/03/25 16:40 2 01/03/25 16:30 2 01/03/25 16:20 2 01/03/25 16:10 2 01/03/25 16:00 5 01/03/25 15:50 5 01/03/25 15:43 5 01/03/25 10:12 Laboratory Results Short CBC 01/03/25 Range/Units 19:28 Hgb 9.9 L (14.0-18.0) g/dl Hct 29.4 L (42.0-52.0) %
[2025-01-03 19:49] LABS: Hematocrit (blood only) 29.4 % (42.0-52.0); Hemoglobin 9.9 g/dl (14.0-18.0)
[2025-01-03] MEDS: METOPROLOL SUCC 50MG EXT REL TAB PO SCH (20:55)
[2025-01-03] MEDS: DOCUSATE SODIUM/SENNA 50/8.6MG TAB PO SCH (20:55)
[2025-01-03] MEDS: ACETAMINOPHEN 500 MG TAB PO PRN (21:04)
[2025-01-04] MEDS: LORazepam 0.5 MG TAB PO PRN (03:45)
[2025-01-04] MEDS: HYDROmorphone INJ 0.5 MG/0.5 ML SYR IV STA (04:46)
--- NOTE | 2025-01-04 06:06 | Ultrasound Report ---
EXAM: US venous doppler LE RT CLINICAL HISTORY: Right leg pain. DVT? TECHNIQUE: Ultrasound examination of right lower extremity veins was performed in real time and duplex. One or more of the following were performed: spectral analysis, resistive index, waveform analysis, and pulsed Doppler. COMPARISON: None. FINDINGS: Normal phasic, non-pulsatile and spontaneous flow is noted in the right common femoral, superficial femoral, popliteal and posterior tibial and peroneal veins. The visualized veins of the right lower extremity demonstrate normal compressibility. No sonographic evidence of acute deep vein thrombosis (DVT) is detected in the visualized veins of lower extremity. Compression and Augmentation: All evaluated veins compress fully with applied transducer pressure. Augmentation of venous flow is noted with distal compression. Additional Findings: No evidence of intraluminal thrombus. IMPRESSION: No sonographic evidence of acute DVT was detected at the time of examination. Disclaimer: DVT could be missed early in the disease when clot burden is minimal. For patients with moderate and high pretest probability of DVT and negative ultrasound, the [place] [employer] clinical guidelines recommend testing with a D-dimer assay or repeat ultrasound in 5-7 days. If symptoms worsen, the Society of radiologists in ultrasound recommends repeating ultrasound even earlier. Electronically signed by Jose Guadalupe Brown 01-04-2025 06:05 AM
[2025-01-04] MEDS: POLYETHYLENE (MIRALAX) 17 GM PACK PO SCH (06:19)
--- NOTE | 2025-01-04 07:40 | Hospitalist Progress Note ---
Date of Service January 04, 2025 Assessment & Plan (1) S/P spinal surgery: Plan: Post op day# 1 S/P decompression and fusion L2-S1 by Dr Barth EBL#600ml Pain management per ortho Wound management per ortho PT/OT as appropriate DVT prophylaxis per ortho Incentive spirometry Monitor H&H for acute blood loss anemia. Preop Hgb: 11.9. Postop Hgb: 9.9 01/04/2025 Pt still uncomfortable today on rounds, started on MS contin [address] Barth. Will add Lyrica and will cont. to monitor closely. Acute on chronic anemia Acute blood loss anemia, post-op and likely also dilutional Preop Hgb: 11.9. Postop Hgb: 9.9 current 9.3 No need for blood transfusion, cont. to monitor (2) HTN (hypertension): Plan: Hold home HCTZ, losartan and reassess tomorrow Continue metoprolol (3) Hyperlipidemia: Plan: Continue atorvastatin, fenofibrate (4) CKD (chronic kidney disease), stage III: Plan: Pre-op Cr: 1.3 Monitor renal functions, avoid nephrotoxic agents when possible (5) Hypothyroidism: Plan: Continue Synthroid (6) Gastro-esophageal reflux: Plan: Continue PPI (7) ADALGISA (obstructive sleep apnea): Plan: CPAP HS DVT Prophylaxis -per orthopedics Disposition per primary service Follows with Dr Yonathan Hernandez for routine care Thank you for this consultation. We will follow the patient with you during their hospital stay. You can reach a member of the [facility] Team 17/04 via [employer] Admission and Anticipated Discharge Date Admission Date: January 03, 2025 Subjective Pt seen in follow up of med consult s/p lumbar spine surgery Lying in bed on his side, uncomfortable d/t pain, present at the bedside no fever, chills, chest pain, or shortness of breath, no abd. pain reports pt tried gabapentin before and it gave him nightmares, agreeable to try lyrica in addition to oxy Review of Systems Review of Systems: All systems reviewed & are unremarkable except as noted in Subjective Physical Exam Physical Exam: General: some distress secondary to pain, WDWN Head: normocephalic, atraumatic Eyes: conjunctiva non-injected, anicteric ENT: normal inspection external ears, nose, mucous membranes moist Neck: supple Lungs: clear, no respiratory distress, no wheezing/rhonchi/rales CV: RRR, no murmur, no pretibial edema Abd: normal BS, soft, non-tender Back: +DIANA drain in place with serosanguineous drainage Ext: moves extremities Neuro: A&O x 3, speech fluent, no facial asymmetry, answers appropriately, moves extremities Skin: warm, dry Results & Data Results & Data Vital Signs (Past 12 Hours) Vital Signs Temp Pulse Resp BP Pulse Ox O2 Del Method O2 Flow Rate 01/04/25 07:20 37.1 C 67 16 106/65 96 Room Air 01/04/25 04:00 36.6 C 75 20 112/72 100 Room Air 01/04/25 01:15 36.6 C 72 16 107/66 95 Nasal Cannula 1 01/03/25 23:26 37.1 C 95 H 18 116/68 97 Nasal Cannula 1.5 01/03/25 21:05 Nasal Cannula 2 01/03/25 20:40 95 H 116/68 Laboratory Results 01/03/25 01/03/25 Range/Units 19:28 10:06 Hgb 9.9 L (14.0-18.0) g/dl Hct 29.4 L (42.0-52.0) % Blood Type A Positive Antibody Screen NEGATIVE Crossmatch See Detail Medications Administered Current Inpatient Medications Acetaminophen (Acetaminophen 500 Mg Tab) 1,000 mg PO Q8H PRN PRN Reason: MILD Pain Scale 1,2,3 & Pre PT Stop: 02/02/25 18:10 Last Admin: 01/04/25 06:18 Dose: 1,000 mg Al Hydrox/Mg Hydrox/Simethicone (Aluminum/Magnesium Susp 30 Ml Udc) 30 ml PO Q6H PRN PRN Reason: Dyspepsia Stop: 02/02/25 18:10 Aspirin (Aspirin 81 Mg Ectab) 81 mg PO QAM [facility] Stop: 02/03/25 08:59 Atorvastatin Calcium (Atorvastatin 40 Mg Tab) 80 mg PO QAM [facility] Stop: 02/03/25 08:59 Bisacodyl (Bisacodyl 10 Mg Supp) 10 mg AL DAILY PRN PRN Reason: Constipation Stop: 02/02/25 18:10 Diphenhydramine HCl (Diphenhydramine Capsule 25 Mg Cap) 25 mg PO Q6H PRN PRN Reason: Allergic Rhinitis/Insomnia Stop: 02/02/25 18:10 Famotidine (Famotidine 20 Mg Tab) 20 mg PO Q12H PRN PRN Reason: Dyspepsia Stop: 02/02/25 18:10 Fenofibrate (Fenofibrate Nanocrystallized 145 Mg Tablet) 145 mg [facility] Stop: 02/03/25 08:59 Hydrochlorothiazide (Hydrochlorothiazide 25 Mg Tab) 50 mg PO QAWW [facility] Stop: 02/03/25 08:59 Hydromorphone HCl (Hydromorphone Inj 0.5 Mg/0.5 Ml Syr) 0.5 mg IV Q3H PRN PRN Reason: MODERATE Pain (Scale 4,5,6) & Pre PT Stop: 01/17/25 18:10 Hydromorphone HCl (Hydromorphone Inj 1 Mg/Ml Syringe) 1 mg IV Q3H PRN PRN Reason: SEVERE Pain (Scale 7,8,9,10) Stop: 01/17/25 18:10 Last Admin: 01/04/25 01:19 Dose: 1 mg Hydroxyzine HCl (Hydroxyzine Hcl 25 Mg Tab) 25 mg PO Q8H PRN PRN Reason: Anxiety Stop: 02/02/25 18:10 Acetaminophen (Ofirmev) 1,000 mg in 100 mls @ 400 mls/hr IV Q8H PRN PRN Reason: Pain Rating 1-3 & Pre PT Stop: 01/04/25 18:11 Promethazine HCl (Phenergan) 12.5 mg in 50.5 mls @ 202 mls/hr IV Q6H PRN PRN Reason: Nausea And Vomiting Stop: 02/02/25 18:10 Dexamethasone 6 mg/ Syringe 1.5 mls @ 1 mls/min IV DAILY [facility] Stop: 01/06/25 09:02 Influenza Virus Vaccine Quadrival (Do Not Administer Flu Vaccine) 1 each N/A PRN PRN PRN Reason: Notification Stop: 02/02/25 18:10 Levothyroxine Sodium (Levothyroxine Sodium 25 Mcg Tablet) 25 mcg PO QAWW [facility] Stop: 02/03/25 08:59 Lorazepam (Lorazepam 0.5 Mg Tab) 0.5 mg PO Q8H PRN PRN Reason: Sedation/Anxiety Stop: 02/02/25 18:10 Last Admin: 01/04/25 03:45 Dose: 0.5 mg Lorazepam (Lorazepam 2 Mg/1 Ml Vial) 0.5 mg IV Q8H PRN PRN Reason: Sedation/Anxiety Stop: 02/02/25 18:10 Losartan Potassium (Losartan Potassium 50 Mg Tab) 50 mg PO QAM [facility] Stop: 02/03/25 08:59 Magnesium Hydroxide (Magnesium Hydroxide Susp 30 Ml Udc) 30 ml PO Q24H PRN PRN Reason: Constipation Stop: 02/02/25 18:10 Metoclopramide HCl (Metoclopramide Hcl Inj 5 Mg/Ml 2 Ml Vial) 10 mg IV Q6H PRN PRN Reason: Nausea &/or Vomiting Stop: 02/02/25 18:10 Metoprolol Succinate (Metoprolol Succ 50mg Ext Rel Tab) 50 mg PO QPM [facility] Stop: 02/02/25 20:59 Last Admin: 01/03/25 20:55 Dose: 50 mg Naloxone HCl (Naloxone Hcl 0.4 Mg/1 Ml Vial/Carp) 0.1 mg IV Q5M PRN PRN Reason: Oversedation/Resp depression Stop: 02/02/25 18:10 Ondansetron HCl (Ondansetron Inj 2 Mg/Ml 2 Ml Vial) 4 mg IV Q6H PRN PRN Reason: Nausea &/or Vomiting Stop: 02/02/25 18:10 Ondansetron HCl (Ondansetron 4 Mg Od Tab) 4 mg PO Q6H PRN PRN Reason: Nausea Stop: 02/02/25 18:10 Oxycodone HCl (Oxycodone Hcl Ir 5 Mg Tab (Immediate Release)) 5 - 10 mg PO Q4H PRN PRN Reason: Pain & Pre PT Stop: 01/17/25 18:10 Last Admin: 01/04/25 03:44 Dose: 10 mg Pantoprazole Sodium (Pantoprazole 40 Mg Tab) 40 mg PO QAM [facility] Stop: 02/03/25 08:59 Pneumococcal Polyvalent Vaccine (Do Not Administer Pneumococcal Vaccine) 1 each N/A PRN PRN PRN Reason: Notification Stop: 02/02/25 18:10 Polyethylene Glycol (Polyethylene (Miralax) 17 Gm Pack) 17 gm PO DAILY [facility] Stop: 02/04/25 08:59 Polyethylene Glycol (Polyethylene (Miralax) 17 Gm Pack) 17 gm PO Q6 [facility] Stop: 02/03/25 05:59 Last Admin: 01/04/25 06:19 Dose: 17 gm Senna/Docusate Sodium (Docusate Sodium/Senna 50/8.6mg Tab) 2 tab PO HS [facility] Stop: 02/02/25 20:59 Last Admin: 01/03/25 20:55 Dose: 2 tab Sodium Biphosphate/Sodium Phosphate (Sod Phosphate/Sod Biphosphate Enema 132 Ml Btl) 132 ml AL ONE PRN PRN Reason: Constipation Stop: 02/02/25 18:10 Vitamin D (Cholecalciferol 25 Mcg (1000 Units) Tab) 50 mcg PO DAILY [facility] Stop: 02/03/25 08:59
[2025-01-04 08:00] LABS: Basophils # (auto) 0.01 K/uL (0.00-0.20); Basophils % (auto) 0.1 %; Hematocrit (blood only) 27.2 % (42.0-52.0); Hemoglobin 9.3 g/dl (14.0-18.0); Immature Granulocytes # (auto) 0.03 K/uL (0.01-0.20); Immature Granulocytes % (auto) 0.3 %; Lymphocytes # (auto) 0.56 K/uL (1.20-3.40); Lymphocytes % (auto) 6.5 %; Mean Corpuscular Hemoglobin 29.2 pg (25.0-34.0); Mean Corpuscular Hgb Conc 34.2 g/dL (32.0-36.0); Mean Corpuscular Volume 85.3 fL (80.0-100.0); Mean Platelet Volume 10.4 fL (9.4-12.4); Monocytes # (auto) 0.66 K/uL (0.11-0.59); Monocytes % (auto) 7.6 %; Neutrophils # (auto) 7.39 K/uL (1.40-6.50); Neutrophils % (auto) 85.5 %; Platelet Count 204 K/uL (130-400); RDW Coefficient of Variation 13.4 % (11.5-14.5); RDW Standard Deviation 41.7 fL (36.4-46.3); Red Blood Count 3.19 M/uL (4.70-6.10); White Blood Count 8.65 K/ul (4.8-10.8)
[2025-01-04 08:11] LABS: BUN Creatinine Ratio 18.6 (10-20); Calcium 8.9 mg/dl (8.6-10.3); Creatinine Clr Calc Pharmacy 61.8 ml/min; Potassium 4.1 mmol/L (3.5-5.1)
[2025-01-04] MEDS ORDERED: EMMA PO SCH (09:00)
[2025-01-04] MEDS ORDERED: LOSARTAN POTASSIUM 50 MG TAB PO SCH (09:00)
[2025-01-04] MEDS ORDERED: hydroCHLOROthiazide 25 MG TAB PO SCH (09:00)
[2025-01-04] MEDS: ASPIRIN 81 MG ECTAB PO SCH (09:11)
[2025-01-04] MEDS: ATORVASTATIN 40 MG TAB PO SCH (09:11)
[2025-01-04] MEDS: LEVOTHYROXINE SODIUM 25 MCG TABLET PO SCH (09:12)
[2025-01-04] MEDS: FENOFIBRATE NANOCRYSTALLIZED 145 MG TABLET PO SCH (09:12)
[2025-01-04] MEDS: dexAMETHasone 6 MG in SYRINGE 0 ML IV SCH (09:12)
[2025-01-04] MEDS: CHOLECALCIFEROL 25 MCG (1000 UNITS) TAB PO SCH (09:12)
[2025-01-04] MEDS: PANTOprazole 40 MG TAB PO SCH (09:12)
--- NOTE | 2025-01-04 09:34 | Orthopedic Progress Note ---
Date of Service January 04, 2025 Assessment & Plan (1) Two-level lumbosacral spondylosis with radiculopathy: Plan: This time I will add MS Contin 30 mg p.o. twice daily. He has been on chronic opioids and I suspect he is developed significant tolerance. Will initiate physical therapy today. Monitor DIANA output hopefully discharge home next week. Admission and Anticipated Discharge Date Admission Date: January 03, 2025 Subjective Patient struggling with significant back pain. No leg pain. Physical Exam Physical Exam: On exam patient is in bed. Has good strength testing. Is obviously uncomfortable. Results & Data Vital Signs (Past 12 Hours) Vital Signs Temp Pulse Resp BP Pulse Ox O2 Del Method O2 Flow Rate 01/04/25 07:20 37.1 C 67 16 106/65 96 Room Air 01/04/25 04:00 36.6 C 75 20 112/72 100 Room Air 01/04/25 01:15 36.6 C 72 16 107/66 95 Nasal Cannula 1 01/03/25 23:26 37.1 C 95 H 18 116/68 97 Nasal Cannula 1.5 Queries Orthopedic Spine Acute Posthemorrhagic Anemia: Yes
[2025-01-04] MEDS: MoRPHine SULFATE CR 15 MG TABCR PO SCH (11:05)
[2025-01-04] MEDS: PREGABALIN 25 MG CAP PO SCH (14:01)
[2025-01-04] MEDS: FOLIC ACID 1 MG TAB PO SCH (14:01)
[2025-01-04] MEDS: THIAMINE HCL 100 MG in SYRINGE 9 ML IV SCH (14:01)
[2025-01-04] MEDS: CYANOCOBALAMIN (B-12) 500 MCG TABLET PO SCH (14:01)
[2025-01-05] MEDS: HYDROmorphone INJ 0.5 MG/0.5 ML SYR IV STA (03:47)
[2025-01-05] MEDS: hydrOXYzine HCl 25 MG TAB PO PRN (03:55)
--- NOTE | 2025-01-05 07:57 | Orthopedic Progress Note ---
Date of Service January 05, 2025 Assessment & Plan (1) Two-level lumbosacral spondylosis with radiculopathy: Plan: Patient is stable postoperative are 2 status post lumbar decompression fusion from L2-S1. He needs to ask for his pain medication. This was reinforced with the patient. He may ice the back 20 minutes on 20 minutes off throughout the day. He should try to change positions even rolling [id number] in bed or getting from bed to chair throughout the day. He is can get up with physical therapy today. We are going to keep in the hospital today and likely will be able to discharge him to home tomorrow as long as his drainage slows down. Admission and Anticipated Discharge Date Admission Date: January 03, 2025 Subjective Patient was seen bedside in room 377. He states he had a rough night. He a lot of back pain and pain going down the right leg. He states he is in pain medication since 2:00 in the morning. He did not realize that he has to ask for his as needed pain medication. He is not using ice. He is not having any nausea. He is tolerating p.o. food well. He denies any other numbness, tingling, or paresthesias. Physical Exam Physical Exam: On exam he is alert and oriented. He answers questions appropriately. His abdomen soft nontender his calves are supple and nontender. His DIANA drain is in place and holding suction. He had 60 cc of drainage on the shift 70 on the previous. His strength and sensation are both intact he is able to roll in bed with moderate difficulty. Results & Data Vital Signs (Past 12 Hours) Vital Signs Temp Pulse Resp BP Pulse Ox O2 Del Method 01/05/25 07:00 36.8 C 71 16 119/69 95 Room Air
--- NOTE | 2025-01-05 08:15 | Hospitalist Progress Note ---
Date of Service January 05, 2025 Assessment & Plan (1) S/P spinal surgery: Plan: S/P decompression and fusion L2-S1 by Dr Barth Pain management per ortho Wound management per ortho PT/OT as appropriate DVT prophylaxis per ortho Incentive spirometry Monitor H&H for acute blood loss anemia. Preop Hgb: 11.9. Postop Hgb: 9.9 01/04/2025 Pt still uncomfortable today on rounds, started on MS contin [address] Barth. Will add Lyrica and will cont. to monitor closely. 01/05 Pt is much more comfortable today. Denies any side effect to Lyrica, will increase to tid Acute on chronic anemia Acute blood loss anemia, post-op and likely also dilutional Preop Hgb: 11.9. Postop Hgb: 9.9 current 9.3 No need for blood transfusion, cont. to monitor (2) HTN (hypertension): Plan: Hold home HCTZ, losartan and reassess tomorrow Continue metoprolol (3) Hyperlipidemia: Plan: Continue atorvastatin, fenofibrate (4) CKD (chronic kidney disease), stage III: Plan: Pre-op Cr: 1.3 Monitor renal functions, avoid nephrotoxic agents when possible (5) Hypothyroidism: Plan: Continue Synthroid (6) Gastro-esophageal reflux: Plan: Continue PPI (7) ADALGISA (obstructive sleep apnea): Plan: CPAP HS DVT Prophylaxis -per orthopedics Disposition per primary service Follows with Dr Yonathan Hernandez for routine care Thank you for this consultation. We will follow the patient with you during their hospital stay. You can reach a member of the [facility] Hospitalist Team 17/04 via [employer] Admission and Anticipated Discharge Date Admission Date: January 03, 2025 Subjective Pt seen in follow up of med consult s/p lumbar spine surgery Lying in bed on his side, much more comfortable today, present at the bedside no fever, chills, chest pain, or shortness of breath, no abd. pain reports pt tried gabapentin before and it gave him nightmares, agreeable to try lyrica in addition to oxy. Pt reports no side effects after starting lyrica, will increase to tid Review of Systems Review of Systems: All systems reviewed & are unremarkable except as noted in Subjective Physical Exam Physical Exam: General: WDWN in NAD Head: normocephalic, atraumatic Eyes: conjunctiva non-injected, anicteric ENT: normal inspection external ears, nose, mucous membranes moist Neck: supple Lungs: clear, no respiratory distress, no wheezing/rhonchi/rales CV: RRR, no murmur, no pretibial edema Abd: normal BS, soft, non-tender Back: +DIANA drain in place with serosanguineous drainage Ext: moves extremities Neuro: A&O x 3, speech fluent, no facial asymmetry, answers appropriately, moves extremities Skin: warm, dry Results & Data Results & Data Vital Signs (Past 12 Hours) Vital Signs Temp Pulse Resp BP Pulse Ox O2 Del Method 01/05/25 07:00 36.8 C 71 16 119/69 95 Room Air Laboratory Results 01/03/25 Range/Units 10:06 Crossmatch See Detail Medications Administered Current Inpatient Medications Acetaminophen (Acetaminophen 500 Mg Tab) 1,000 mg PO Q8H PRN PRN Reason: MILD Pain Scale 1,2,3 & Pre PT Stop: 02/02/25 18:10 Last Admin: 01/05/25 03:43 Dose: 1,000 mg Al Hydrox/Mg Hydrox/Simethicone (Aluminum/Magnesium Susp 30 Ml Udc) 30 ml PO Q6H PRN PRN Reason: Dyspepsia Stop: 02/02/25 18:10 Aspirin (Aspirin 81 Mg Ectab) 81 mg PO [facility] Stop: 02/03/25 08:59 Last Admin: 01/05/25 07:48 Dose: 81 mg Atorvastatin Calcium (Atorvastatin 40 Mg Tab) 80 mg PO [facility] Stop: 02/03/25 08:59 Last Admin: 01/05/25 07:48 Dose: 80 mg Bisacodyl (Bisacodyl 10 Mg Supp) 10 mg ME DAILY PRN PRN Reason: Constipation Stop: 02/02/25 18:10 Cyanocobalamin (Cyanocobalamin (B-12) 500 Mcg Tablet) 500 mcg PO [facility] Stop: 02/03/25 13:14 Last Admin: 01/05/25 07:48 Dose: 500 mcg Diphenhydramine HCl (Diphenhydramine Capsule 25 Mg Cap) 25 mg PO Q6H PRN PRN Reason: Allergic Rhinitis/Insomnia Stop: 02/02/25 18:10 Famotidine (Famotidine 20 Mg Tab) 20 mg PO Q12H PRN PRN Reason: Dyspepsia Stop: 02/02/25 18:10 Fenofibrate (Fenofibrate Nanocrystallized 145 Mg Tablet) [facility] Stop: 02/03/25 08:59 Last Admin: 01/05/25 07:48 Dose: 145 mg Folic Acid (Folic Acid 1 Mg Tab) [facility] Stop: 02/03/25 13:29 Last Admin: 01/05/25 07:48 Dose: 1 mg Hydrochlorothiazide (Hydrochlorothiazide 25 Mg Tab) 50 mg PO QAM [facility] Stop: 02/03/25 08:59 Hydromorphone HCl (Hydromorphone Inj 0.5 Mg/0.5 Ml Syr) 0.5 mg IV Q3H PRN PRN Reason: MODERATE Pain (Scale 4,5,6) & Pre PT Stop: 01/17/25 18:10 Hydromorphone HCl (Hydromorphone Inj 1 Mg/Ml Syringe) 1 mg IV Q3H PRN PRN Reason: SEVERE Pain (Scale 7,8,9,10) Stop: 01/17/25 18:10 Last Admin: 01/05/25 07:49 Dose: 1 mg Hydroxyzine HCl (Hydroxyzine Hcl 25 Mg Tab) 25 mg PO Q8H PRN PRN Reason: Anxiety Stop: 02/02/25 18:10 Last Admin: 01/05/25 03:55 Dose: 25 mg Promethazine HCl (Phenergan) 12.5 mg in 50.5 mls @ 202 mls/hr IV Q6H PRN PRN Reason: Nausea And Vomiting Stop: 02/02/25 18:10 Dexamethasone 6 mg/ Syringe 1.5 mls @ 1 mls/min IV DAILY [facility] Stop: 01/06/25 09:02 Last Admin: 01/05/25 07:48 Dose: 1 mls/min Thiamine HCl 100 mg/ Syringe 10 mls @ 2 mls/min IV QAM [facility] Stop: 02/03/25 13:29 Last Admin: 01/05/25 07:49 Dose: 2 mls/min Influenza Virus Vaccine Quadrival (Do Not Administer Flu Vaccine) 1 each N/A PRN PRN PRN Reason: Notification Stop: 02/02/25 18:10 Levothyroxine Sodium (Levothyroxine Sodium 25 Mcg Tablet) 25 mcg PO QAM [facility] Stop: 02/03/25 08:59 Last Admin: 01/05/25 07:49 Dose: 25 mcg Lorazepam (Lorazepam 0.5 Mg Tab) 0.5 mg PO Q8H PRN PRN Reason: Sedation/Anxiety Stop: 02/02/25 18:10 Last Admin: 01/04/25 03:45 Dose: 0.5 mg Lorazepam (Lorazepam 2 Mg/1 Ml Vial) 0.5 mg IV Q8H PRN PRN Reason: Sedation/Anxiety Stop: 02/02/25 18:10 Losartan Potassium (Losartan Potassium 50 Mg Tab) 50 mg PO QAM [facility] Stop: 02/03/25 08:59 Magnesium Hydroxide (Magnesium Hydroxide Susp 30 Ml Udc) 30 ml PO Q24H PRN PRN Reason: Constipation Stop: 02/02/25 18:10 Metoclopramide HCl (Metoclopramide Hcl Inj 5 Mg/Ml 2 Ml Vial) 10 mg IV Q6H PRN PRN Reason: Nausea &/or Vomiting Stop: 02/02/25 18:10 Metoprolol Succinate (Metoprolol Succ 50mg Ext Rel Tab) 50 mg PO QPM [facility] Stop: 02/02/25 20:59 Last Admin: 01/04/25 20:26 Dose: 50 mg Morphine Sulfate (Morphine Sulfate Cr 15 Mg Tabcr) 30 mg PO Q12H [facility] Stop: 01/18/25 09:59 Last Admin: 01/04/25 21:59 Dose: 30 mg Naloxone HCl (Naloxone Hcl 0.4 Mg/1 Ml Vial/Carp) 0.1 mg IV Q5M PRN PRN Reason: Oversedation/Resp depression Stop: 02/02/25 18:10 Ondansetron HCl (Ondansetron Inj 2 Mg/Ml 2 Ml Vial) 4 mg IV Q6H PRN PRN Reason: Nausea &/or Vomiting Stop: 02/02/25 18:10 Ondansetron HCl (Ondansetron 4 Mg Od Tab) 4 mg PO Q6H PRN PRN Reason: Nausea Stop: 02/02/25 18:10 Oxycodone HCl (Oxycodone Hcl Ir 5 Mg Tab (Immediate Release)) 5 - 10 mg PO Q4H PRN PRN Reason: Pain & Pre PT Stop: 01/17/25 18:10 Last Admin: 01/04/25 16:47 Dose: 10 mg Pantoprazole Sodium (Pantoprazole 40 Mg Tab) 40 mg PO QAM [facility] Stop: 02/03/25 08:59 Last Admin: 01/05/25 07:49 Dose: 40 mg Pneumococcal Polyvalent Vaccine (Do Not Administer Pneumococcal Vaccine) 1 each N/A PRN PRN PRN Reason: Notification Stop: 02/02/25 18:10 Polyethylene Glycol (Polyethylene (Miralax) 17 Gm Pack) 17 gm PO DAILY [facility] Stop: 02/04/25 08:59 Polyethylene Glycol (Polyethylene (Miralax) 17 Gm Pack) 17 gm PO Q6 [facility] Stop: 02/03/25 05:59 Last Admin: 01/05/25 05:28 Dose: 17 gm Pregabalin (Pregabalin 25 Mg Cap) 25 mg PO BID [facility] Stop: 02/03/25 13:14 Last Admin: 01/05/25 07:49 Dose: 25 mg Senna/Docusate Sodium (Docusate Sodium/Senna 50/8.6mg Tab) 2 tab PO HS [facility] Stop: 02/02/25 20:59 Last Admin: 01/04/25 20:26 Dose: 2 tab Sodium Biphosphate/Sodium Phosphate (Sod Phosphate/Sod Biphosphate Enema 132 Ml Btl) 132 ml ME ONE PRN PRN Reason: Constipation Stop: 02/02/25 18:10 Vitamin D (Cholecalciferol 25 Mcg (1000 Units) Tab) 50 mcg PO DAILY [facility] Stop: 02/03/25 08:59 Last Admin: 01/05/25 07:48 Dose: 50 mcg
[2025-01-05] MEDS ORDERED: POLYETHYLENE (MIRALAX) 17 GM PACK PO SCH (09:00)
[2025-01-05] MEDS: PREGABALIN 25 MG CAP PO SCH (13:14)
--- NOTE | 2025-01-06 09:31 | Orthopedic Progress Note ---
Date of Service January 06, 2025 Assessment & Plan (1) Two-level lumbosacral spondylosis with radiculopathy: Plan: At this time we will discontinue MS Contin. Will continue with physical therapy. Will explore other pain treatment options. Admission and Anticipated Discharge Date Admission Date: January 03, 2025 Subjective Patient is still struggling with significant back pain postoperatively. He does have a pre-existing dependence on oxycodone. He states the MS Contin does not providing any relief. His right leg symptoms are improving. He is tolerating therapy. Physical Exam Physical Exam: On exam he is neurologically intact. He is obviously in discomfort. Results & Data Vital Signs (Past 12 Hours) Vital Signs Temp Pulse Resp BP Pulse Ox O2 Del Method 01/06/25 07:34 36.7 C 61 18 127/72 99 Room Air 01/05/25 23:06 36.8 C 65 18 112/66 96 CPAP Queries Orthopedic Spine Acute Posthemorrhagic Anemia: Yes
[2025-01-06 11:03] LABS: Hematocrit (blood only) 24.7 % (42.0-52.0); Hemoglobin 8.4 g/dl (14.0-18.0); Mean Corpuscular Hemoglobin 28.9 pg (25.0-34.0); Mean Corpuscular Volume 84.9 fL (80.0-100.0); Mean Platelet Volume 10.1 fL (9.4-12.4); Platelet Count 206 K/uL (130-400); RDW Coefficient of Variation 13.4 % (11.5-14.5); RDW Standard Deviation 41.9 fL (36.4-46.3); Red Blood Count 2.91 M/uL (4.70-6.10); White Blood Count 6.44 K/ul (4.8-10.8)
[2025-01-06 11:21] LABS: BUN Creatinine Ratio 19.3 (10-20); Calcium 8.9 mg/dl (8.6-10.3); Creatinine Clr Calc Pharmacy 61.3 ml/min; Magnesium 1.6 mg/dl (1.7-2.4); Potassium 3.8 mmol/L (3.5-5.1)
--- NOTE | 2025-01-06 12:49 | Hospitalist Progress Note ---
Date of Service January 06, 2025 Assessment & Plan (1) S/P spinal surgery: Plan: S/P decompression and fusion L2-S1 by Dr Barth Pain management per ortho Wound management per ortho PT/OT as appropriate DVT prophylaxis per ortho Incentive spirometry Monitor H&H for acute blood loss anemia. Preop Hgb: 11.9. Postop Hgb: 9.9 01/04/2025 Pt still uncomfortable today on rounds, started on MS contin [address] Barth. Will add Lyrica and will cont. to monitor closely. 01/05 Pt is much more comfortable today. Denies any side effect to Lyrica, will increase to tid 01/06 currently feels well but reports having "rough morning". Perhaps may need pain management consult. Acute on chronic anemia Acute blood loss anemia, post-op and likely also dilutional Preop Hgb: 11.9. Postop Hgb: 9.9 current 8.4 No need for blood transfusion, cont. to monitor (2) HTN (hypertension): Plan: Hold home HCTZ, losartan and reassess tomorrow Continue metoprolol (3) Hyperlipidemia: Plan: Continue atorvastatin, fenofibrate (4) CKD (chronic kidney disease), stage III: Plan: Pre-op Cr: 1.3 Monitor renal functions, avoid nephrotoxic agents when possible (5) Hypothyroidism: Plan: Continue Synthroid (6) Gastro-esophageal reflux: Plan: Continue PPI (7) ADALGISA (obstructive sleep apnea): Plan: CPAP HS DVT Prophylaxis -per orthopedics Disposition per primary service Follows with Dr Yonathan Hernandez for routine care Thank you for this consultation. We will follow the patient with you during their hospital stay. You can reach a member of the [facility]ist Team 17/04 via [employer] Admission and Anticipated Discharge Date Admission Date: January 03, 2025 Subjective Pt seen in follow up of med consult s/p lumbar spine surgery Sitting up in bed in NAD, much more comfortable at this time but says that morning was "rough" no fever, chills, chest pain, or shortness of breath, no abd. pain previously reported pt tried gabapentin before and it gave him nightmares, tried lyrica over the weekend in addition to oxy. Pt reports no side effects after starting lyrica Review of Systems Review of Systems: All systems reviewed & are unremarkable except as noted in Subjective Physical Exam Physical Exam: General: WDWN in NAD Head: normocephalic, atraumatic Eyes: conjunctiva non-injected, anicteric ENT: normal inspection external ears, nose, mucous membranes moist Neck: supple Lungs: clear, no respiratory distress, no wheezing/rhonchi/rales CV: RRR, no murmur, no pretibial edema Abd: normal BS, soft, non-tender Back: +DIANA drain in place with serosanguineous drainage Ext: moves extremities Neuro: A&O x 3, speech fluent, no facial asymmetry, answers appropriately, moves extremities Skin: warm, dry Results & Data Results & Data Vital Signs (Past 12 Hours) Vital Signs Temp Pulse Pulse Resp BP BP Pulse Ox 01/06/25 11:37 36.8 C 65 17 120/60 97 01/06/25 07:34 36.7 C 61 18 127/72 99 O2 Del Method 01/06/25 11:37 Room Air 01/06/25 07:34 Room Air Laboratory Results 01/06/25 Range/Units 10:36 WBC 6.44 (4.8-10.8) K/ul RBC 2.91 L (4.70-6.10) M/uL Hgb 8.4 L (14.0-18.0) g/dl Hct 24.7 L (42.0-52.0) % MCV 84.9 (80.0-100.0) fL MCH 28.9 (25.0-34.0) pg MCHC 34.0 (32.0-36.0) g/dL RDW Std Deviation 41.9 (36.4-46.3) fL RDW Coeff of Uyen 13.4 (11.5-14.5) % Plt Count 206 (130-400) K/uL MPV 10.1 (9.4-12.4) fL Sodium 137 (136-145) mmol/L Potassium 3.8 (3.5-5.1) mmol/L Chloride 102 (98-107) mmol/L Carbon Dioxide 29 (21-32) mmol/L Anion Gap 6 (3-11) BUN 22 (6-23) mg/dl Creatinine 1.14 (0.6-1.4) mg/dl Est Cr Clr Drug Dosing 61.3 ml/min eGFR 70.05 BUN/Creatinine Ratio 19.3 (10-20) Glucose 106 H (70-99(Fasting)) mg/dl Calcium 8.9 (8.6-10.3) mg/dl Magnesium 1.6 L (1.7-2.4) mg/dl Medications Administered Current Inpatient Medications Acetaminophen (Acetaminophen 500 Mg Tab) 1,000 mg PO Q8H PRN PRN Reason: MILD Pain Scale 1,2,3 & Pre PT Stop: 02/02/25 18:10 Last Admin: 01/05/25 03:43 Dose: 1,000 mg Al Hydrox/Mg Hydrox/Simethicone (Aluminum/Magnesium Susp 30 Ml Udc) 30 ml PO Q6H PRN PRN Reason: Dyspepsia Stop: 02/02/25 18:10 Aspirin (Aspirin 81 Mg Ectab) 81 mg PO [facility] Stop: 02/03/25 08:59 Last Admin: 01/06/25 09:11 Dose: 81 mg Atorvastatin Calcium (Atorvastatin 40 Mg Tab) 80 mg PO [facility] Stop: 02/03/25 08:59 Last Admin: 01/06/25 09:12 Dose: 80 mg Bisacodyl (Bisacodyl 10 Mg Supp) 10 mg KS DAILY PRN PRN Reason: Constipation Stop: 02/02/25 18:10 Cyanocobalamin (Cyanocobalamin (B-12) 500 Mcg Tablet) 500 mcg PO [facility] Stop: 02/03/25 13:14 Last Admin: 01/06/25 09:12 Dose: 500 mcg Diphenhydramine HCl (Diphenhydramine Capsule 25 Mg Cap) 25 mg PO Q6H PRN PRN Reason: Allergic Rhinitis/Insomnia Stop: 02/02/25 18:10 Famotidine (Famotidine 20 Mg Tab) 20 mg PO Q12H PRN PRN Reason: Dyspepsia Stop: 02/02/25 18:10 Fenofibrate (Fenofibrate Nanocrystallized 145 Mg Tablet) 145 mg PO [facility] Stop: 02/03/25 08:59 Last Admin: 01/06/25 10:42 Dose: 145 mg Folic Acid (Folic Acid 1 Mg Tab) 1 mg PO [facility] Stop: 02/03/25 13:29 Last Admin: 01/06/25 09:12 Dose: 1 mg Hydrochlorothiazide (Hydrochlorothiazide 25 Mg Tab) 50 [facility] Stop: 02/03/25 08:59 Hydromorphone HCl (Hydromorphone Inj 0.5 Mg/0.5 Ml Syr) 0.5 mg IV Q3H PRN PRN Reason: MODERATE Pain (Scale 4,5,6) & Pre PT Stop: 01/17/25 18:10 Hydromorphone HCl (Hydromorphone Inj 1 Mg/Ml Syringe) 1 mg IV Q3H PRN PRN Reason: SEVERE Pain (Scale 7,8,9,10) Stop: 01/17/25 18:10 Last Admin: 01/06/25 09:20 Dose: 1 mg Hydroxyzine HCl (Hydroxyzine Hcl 25 Mg Tab) 25 mg PO Q8H PRN PRN Reason: Anxiety Stop: 02/02/25 18:10 Last Admin: 01/05/25 03:55 Dose: 25 mg Promethazine HCl (Phenergan) 12.5 mg in 50.5 mls @ 202 mls/hr IV Q6H PRN PRN Reason: Nausea And Vomiting Stop: 02/02/25 18:10 Thiamine HCl 100 mg/ Syringe 10 mls @ 2 mls/min IV [facility] Stop: 02/03/25 13:29 Last Admin: 01/06/25 09:13 Dose: 2 mls/min Magnesium Sulfate/Dextrose (Magnesium Sulfate / D5w) 1 gm in 100 mls @ 50 mls/hr IV ONE ONE Stop: 01/06/25 14:37 Influenza Virus Vaccine Quadrival (Do Not Administer Flu Vaccine) 1 each N/A PRN PRN PRN Reason: Notification Stop: 02/02/25 18:10 Ketorolac Tromethamine (Ketorolac Tromethamine 15 Mg/Ml Vial) 15 mg IV Q6H PRN PRN Reason: Pain Stop: 01/11/25 09:31 Levothyroxine Sodium (Levothyroxine Sodium 25 Mcg Tablet) 25 mcg PO [facility] Stop: 02/03/25 08:59 Last Admin: 01/06/25 09:13 Dose: 25 mcg Lorazepam (Lorazepam 0.5 Mg Tab) 0.5 mg PO Q8H PRN PRN Reason: Sedation/Anxiety Stop: 02/02/25 18:10 Last Admin: 01/05/25 20:14 Dose: 0.5 mg Lorazepam (Lorazepam 2 Mg/1 Ml Vial) 0.5 mg IV Q8H PRN PRN Reason: Sedation/Anxiety Stop: 02/02/25 18:10 Losartan Potassium (Losartan Potassium 50 Mg Tab) 50 mg PO QAM [facility] Stop: 02/03/25 08:59 Magnesium Hydroxide (Magnesium Hydroxide Susp 30 Ml Udc) 30 ml PO Q24H PRN PRN Reason: Constipation Stop: 02/02/25 18:10 Metoclopramide HCl (Metoclopramide Hcl Inj 5 Mg/Ml 2 Ml Vial) 10 mg IV Q6H PRN PRN Reason: Nausea &/or Vomiting Stop: 02/02/25 18:10 Metoprolol Succinate (Metoprolol Succ 50mg Ext Rel Tab) 50 mg PO QPM [facility] Stop: 02/02/25 20:59 Last Admin: 01/05/25 20:13 Dose: 50 mg Naloxone HCl (Naloxone Hcl 0.4 Mg/1 Ml Vial/Carp) 0.1 mg IV Q5M PRN PRN Reason: Oversedation/Resp depression Stop: 02/02/25 18:10 Ondansetron HCl (Ondansetron Inj 2 Mg/Ml 2 Ml Vial) 4 mg IV Q6H PRN PRN Reason: Nausea &/or Vomiting Stop: 02/02/25 18:10 Ondansetron HCl (Ondansetron 4 Mg Od Tab) 4 mg PO Q6H PRN PRN Reason: Nausea Stop: 02/02/25 18:10 Oxycodone HCl (Oxycodone Hcl Ir 5 Mg Tab (Immediate Release)) 5 - 10 mg PO Q4H PRN PRN Reason: Pain & Pre PT Stop: 01/17/25 18:10 Last Admin: 01/06/25 11:52 Dose: 10 mg Pantoprazole Sodium (Pantoprazole 40 Mg Tab) 40 mg PO QAM [facility] Stop: 02/03/25 08:59 Last Admin: 01/06/25 09:12 Dose: 40 mg Pneumococcal Polyvalent Vaccine (Do Not Administer Pneumococcal Vaccine) 1 each N/A PRN PRN PRN Reason: Notification Stop: 02/02/25 18:10 Polyethylene Glycol (Polyethylene (Miralax) 17 Gm Pack) 17 gm PO DAILY [facility] Stop: 02/04/25 08:59 Pregabalin (Pregabalin 25 Mg Cap) 25 mg PO TID [facility] Stop: 02/04/25 13:59 Last Admin: 01/06/25 09:11 Dose: 25 mg Senna/Docusate Sodium (Docusate Sodium/Senna 50/8.6mg Tab) 2 tab PO HS [facility] Stop: 02/02/25 20:59 Last Admin: 01/05/25 20:14 Dose: 2 tab Sodium Biphosphate/Sodium Phosphate (Sod Phosphate/Sod Biphosphate Enema 132 Ml Btl) 132 ml KS ONE PRN PRN Reason: Constipation Stop: 02/02/25 18:10 Vitamin D (Cholecalciferol 25 Mcg (1000 Units) Tab) 50 mcg PO DAILY [facility] Stop: 02/03/25 08:59 Last Admin: 01/06/25 09:11 Dose: 50 mcg
[2025-01-06] MEDS: KETOROLAC TROMETHAMINE 15 MG/ML VIAL IV PRN (13:39)
[2025-01-06] MEDS: MAGNESIUM SULFATE / D5W 1 GM/100 ML BAG IV ONE (13:40)
[2025-01-06 19:43] VITALS: TEMP 97.9
[2025-01-07 07:48] VITALS: BP 134/69; PULSE 55; RESP 14; O2SAT 97
--- NOTE | 2025-01-07 09:50 | Discharge Summary ---
Date of Service January 07, 2025 Admission HPI Per Admitting Provider This is a 69-year-old male who presents with chronic persistent back and leg pain after failing course of nonoperative care is here for surgical intervention. Principal Diagnosis Multilevel lumbar spondylosis with radiculopathy Discharge Data Allergies Allergy/AdvReac Type Severity Reaction Status Date / Time lisinopril AdvReac Intermediate dry cough Verified 01/03/25 10:11 Consultations 01/03/25 18:11 Consult Hospitalist Routine Procedures Performed Operation Date: 01/03/25 11:25 Actual Procedures p L2-S1 Decompression and Fusion, Spinal Cord Monitoring(Not Applicable) - Evert Barth DO Ordered Studies 01/03/25 06:30 FL lumbar spine 2-3V Routine 01/04/25 04:27 US venous doppler LE RT Urgent Hospital Course (1) Two-level lumbosacral spondylosis with radiculopathy: patient with multilevel lumbar decompression for patient with multilevel lumbar decompression fusion trial as well as taken orthopedic for postoperative. Postop he progressed appropriately. DIANA drain decreasing. Excellent strength testing. Subsidy discharged home. Discharge orders instructions found in chart for further review. Total Time Total Time Spent Total Time Spent (In Minutes): 20 minutes Discharge Plan Discharge Items Patient Disposition: Home - Self-Care Reason For Visit: Other Spondylosis with Radiculopathy Lumbar Region Discharge Diagnosis: Lumbar spondylosis with radiculopathy Activity: As commented below Non-emergency contact: Primary Care Provider Call non-emergency contact if: you have any medication questions Follow-up/Referrals: Ariel Lerma DO [Outside Practitioners] - Diet: Regular Addtl Attending Provider Instructions: ACTIVITY RECOMMENDATIONS: SELF CARE INSTRUCTIONS AFTER THORACIC/LUMBAR FUSIONS 1. You may walk to your tolerance. It is good exercise for your legs and back. Expect some back and intermittent leg aches and pains. 2. You may perform "counter-top" level activities (make a sandwich, omer with a project, etc.). 3. No bending or lifting of more than 10 pounds or back twisting of any nature (roll like a log when turning in bed). 4. You may ride in a car for 20-30 minutes at a time. No driving until after your first visit with your doctor. 5. Frequent changes of position and restricting sitting to 30 minutes at a time will help limit the amount of back spasms and stiffness you may experience. 6. You may discontinue the use of ambulatory aids (cane, crutches, etc.) once your strength and confidence allow. 7. You may major donor coordinator the shower and let water strike your incision when you arrive home at least once daily. Do not take a tub bath, sit in a hot tub or go into a swimming pool until after your first recheck in the office. 8. You may resume previous diet. SPECIAL CARE INSTRUCTIONS: VERY IMPORTANT TO READ AND REVIEW A. Your surgical incision has been closed with a cosmetic suture under the skin that will dissolve in about 6 weeks. In 14 days, you can use a pair of clean scissors and cut the suture that is left outside of the skin at the ends of your incision. 1. The small skin tapes can be removed 7 days after surgery if they have not fallen off by that point. 2. You may keep the wound open to air as much as possible to promote healing after post-op day number 5 unless told otherwise by your doctor. 3. If you think the wound looks like it is becoming infected (redness or worsening drainage) and/or you are experiencing fever, chill or worsening back pain and muscle spasms, contact the office so that we may evaluate you as soon as possible. B. Complications are uncommon, but please contact us if you have any signs or symptoms of: 1. wound infection (fever higher than 102.5 degrees F, redness, separation of wound, drainage, or increasing pain from the incision) 2. blood clots in legs (pain, swelling, redness and warmth in legs) 3. urinary tract infection (fever higher than 102.5 degrees F, burning upon urination or increased frequency of urination) 4. nerve problems (inability to walk on your toes or heels, numbness, loss of bowel or bladder control) 5. any other symptoms that concern you C. Please call the office at if you have any concerns or questions about your operation or recovery. D. No smoking! Smoking drastically decreases the chance of a solid fusion. E. Do not take any anti-inflammatory medications (Indocin, Advil, Motrin, Aspirin, Naprosyn, etc.) as these may inhibit the chance of a solid fusion. Ty lenol is okay to take for pain. MANAGING PAIN AFTER SPINAL SURGERY 1. Narcotic medication is intended for short-term use and will be provided for surgical pain. Surgical pain usually lasts for a period of 4-6 weeks. Narcotic medication includes Percocet, Vicodin, Darvocet, Tylenol #3 or Lortab. 2. Longer-term pain is more appropriately treated with non-narcotic medication such as Tylenol ES. 3. Muscle spasm is not appropriately treated with narcotics. Muscle relaxers such as Soma, Flexeril or Skelaxin can be used along with Tylenol ES. 4. Remember that we all live with some "aches and pains". This is not unusual or uncommon after an injury or as we get older. a. Back pain is expected and may include muscle spasms for 4 to 6 weeks after surgery. The pain should gradually improve. If the pain worsens for no apparent reason, please contact the office. b. Intermittent leg pain may also be experienced and should not be concerned about unless it worsens for no apparent reason. If so, please contact the office. 5. We will provide appropriate medication within the normal guidelines of their prescribed use. We will also be very cautious and aware of potential abuse and extended duration of patients' medication needs. a. Pain medications are for your comfort and to assist with sleep and rest so that the tissue can heal. They are not provided in order to return to normal activity and should not be used through the day. To do so or worsening pain at night can result from ongoing tissue damage and development of tolerance to the prescribed medicine. 6. Please allow 2-3 days to process refills. Prescriptions will not be mailed but must be picked up at the office. FOLLOW UP VISIT: Keep your scheduled follow-up appointment. Any questions, please call the office at . Pending Studies at Discharge: No Stand-Alone Forms: [employer], Smoking Cessation Medications and DC Order Prescriptions: New oxycodone 5 mg tablet 5 mg PO Q6H PRN (Reason: pain) Qty: 30 0RF Continued fenofibrate nanocrystallized 145 mg tablet 145 mg PO QAM Qty: 30 5RF Rx Instructions: TAKE 1 TABLET BY MOUTH DAILY WITH FOOD hydrochlorothiazide 50 mg tablet 50 mg PO QAM Qty: 90 0RF Rx Instructions: TAKE 1 TABLET BY MOUTH DAILY IN THE MORNING WITH ORANGE JUICE cholecalciferol (vitamin D3) 50 mcg (2,000 unit) capsule 50 mcg PO DAILY Rx Instructions: Pt has been taking 2000 units BID for 2 weeks but will go back to 2000 units daily after surgery aspirin 81 mg tablet,delayed release (DR/EC) 81 mg PO QAM levothyroxine 25 mcg tablet 25 mcg PO QAM Rx Instructions: TAKE 1 TABLET BY MOUTH DAILY DIRECTED losartan 50 mg Tablet 50 mg PO QAM atorvastatin 80 mg Tablet 80 mg PO QAM metoprolol succinate 50 mg Tablet Extended Release 24 Hr 50 mg PO QPM oxycodone-acetaminophen 10-325 mg Tablet 0.5 tab PO Q3H PRN (Reason: Pain) ondansetron 4 mg Tablet,Disintegrating 4 mg PO Q6H PRN (Reason: Nausea) diclofenac sodium [Voltaren] 1 % Gel 2 g TOPICAL QID PRN (Reason: Pain) Rx Instructions: apply to single elbow, wrist or hand; for hand includes palm/fingers/back of hand omeprazole 40 mg capsule,delayed release(DR/EC) 40 mg PO QAM polyethylene glycol 3350 [Miralax] 17 gram/dose Powder 17 g PO DAILY Brain Booster 1 tab PO BID Noreen 2 cap PO QAM Discharge Orders: Discharge Order (Routine); Ordered 01/07/25 Ordered By: Evert Barth Admission Data Admit Date/Time: 01/03/25 15:24 Attending Provider: Evert Barth Admit Provider: Evert Barth Primary Care Provider: Yonathan Hernandez Other Providers: Dyan Wayne; [employer],[facility]
--- NOTE | 2025-01-07 11:44 | Hospitalist Progress Note ---
Date of Service January 07, 2025 Assessment & Plan (1) S/P spinal surgery: Plan: S/P decompression and fusion L2-S1 by Dr Barth Pain management per ortho Wound management per ortho PT/OT as appropriate DVT prophylaxis per ortho Incentive spirometry Monitor H&H for acute blood loss anemia. Preop Hgb: 11.9. Postop Hgb: 9.9 01/04/2025 Pt still uncomfortable today on rounds, started on MS contin [address] Barth. Will add Lyrica and will cont. to monitor closely. 01/05 Pt is much more comfortable today. Denies any side effect to Lyrica, will increase to tid 01/06 currently feels well but reports having "rough morning". Perhaps may need pain management consult. 01/07 Today pt feels much better, reports pain is improved, he is smiling. Per RN chivo. DC later today Acute on chronic anemia Acute blood loss anemia, post-op and likely also dilutional Preop Hgb: 11.9. Postop Hgb: 9.9 current 8.4 No need for blood transfusion, cont. to monitor (2) HTN (hypertension): Plan: Hold home HCTZ, losartan Continue metoprolol Recommend to monitor BP at home (3) Hyperlipidemia: Plan: Continue atorvastatin, fenofibrate (4) CKD (chronic kidney disease), stage III: Plan: Pre-op Cr: 1.3 Monitor renal functions, avoid nephrotoxic agents when possible (5) Hypothyroidism: Plan: Continue Synthroid (6) Gastro-esophageal reflux: Plan: Continue PPI (7) ADALGISA (obstructive sleep apnea): Plan: CPAP HS DVT Prophylaxis -per orthopedics Disposition per primary service Follows with Dr Yonathan Hernandez for routine care Thank you for this consultation. We will follow the patient with you during their hospital stay. You can reach a member of the [facility] [place]04 via [email or web address] Admission and Anticipated Discharge Date Admission Date: January 03, 2025 Subjective Pt seen in follow up of med consult s/p lumbar spine surgery Sitting up in bed in NAD, much more comfortable today no fever, chills, chest pain, or shortness of breath, no abd. pain previously reported pt tried gabapentin before and it gave him nightmares, tried lyrica over the weekend in addition to oxy. Pt reports no side effects after starting lyrica Review of Systems Review of Systems: All systems reviewed & are unremarkable except as noted in Subjective Physical Exam Physical Exam: General: WDWN in NAD Head: normocephalic, atraumatic Eyes: conjunctiva non-injected, anicteric ENT: normal inspection external ears, nose, mucous membranes moist Neck: supple Lungs: clear, no respiratory distress, no wheezing/rhonchi/rales CV: RRR, no murmur, no pretibial edema Abd: normal BS, soft, non-tender Back: +DIANA drain in place with serosanguineous drainage Ext: moves extremities Neuro: A&O x 3, speech fluent, no facial asymmetry, answers appropriately, moves extremities Skin: warm, dry Results & Data Results & Data Vital Signs (Past 12 Hours) Vital Signs Temp Pulse Resp BP Pulse Ox O2 Del Method 01/07/25 07:46 36.6 C 55 L 14 134/69 97 Room Air Medications Administered Current Inpatient Medications Acetaminophen (Acetaminophen 500 Mg Tab) 1,000 mg PO Q8H PRN PRN Reason: MILD Pain Scale 1,2,3 & Pre PT Stop: 02/02/25 18:10 Last Admin: 01/05/25 03:43 Dose: 1,000 mg Al Hydrox/Mg Hydrox/Simethicone (Aluminum/Magnesium Susp 30 Ml Udc) 30 ml PO Q6H PRN PRN Reason: Dyspepsia Stop: 02/02/25 18:10 Aspirin (Aspirin 81 Mg Ectab) 81 mg PO [facility] Stop: 02/03/25 08:59 Last Admin: 01/07/25 08:28 Dose: 81 mg Atorvastatin Calcium (Atorvastatin 40 Mg Tab) 80 mg PO [facility] Stop: 02/03/25 08:59 Last Admin: 01/07/25 08:28 Dose: 80 mg Bisacodyl (Bisacodyl 10 Mg Supp) 10 mg MO DAILY PRN PRN Reason: Constipation Stop: 02/02/25 18:10 Cyanocobalamin (Cyanocobalamin (B-12) 500 Mcg Tablet) 500 mcg PO [facility] Stop: 02/03/25 13:14 Last Admin: 01/07/25 08:28 Dose: 500 mcg Diphenhydramine HCl (Diphenhydramine Capsule 25 Mg Cap) 25 mg PO Q6H PRN PRN Reason: Allergic Rhinitis/Insomnia Stop: 02/02/25 18:10 Famotidine (Famotidine 20 Mg Tab) 20 mg PO Q12H PRN PRN Reason: Dyspepsia Stop: 02/02/25 18:10 Fenofibrate (Fenofibrate Nanocrystallized 145 Mg Tablet) 145 mg PO [facility] Stop: 02/03/25 08:59 Last Admin: 01/07/25 08:29 Dose: 145 mg Folic Acid (Folic Acid 1 Mg Tab) 1 mg PO [facility] Stop: 02/03/25 13:29 Last Admin: 01/07/25 08:28 Dose: 1 mg Hydrochlorothiazide (Hydrochlorothiazide 25 Mg Tab) 50 mg PO [facility] Stop: 02/03/25 08:59 Hydromorphone HCl (Hydromorphone Inj 0.5 Mg/0.5 Ml Syr) 0.5 mg IV Q3H PRN PRN Reason: MODERATE Pain (Scale 4,5,6) & Pre PT Stop: 01/17/25 18:10 Hydromorphone HCl (Hydromorphone Inj 1 Mg/Ml Syringe) 1 mg IV Q3H PRN PRN Reason: SEVERE Pain (Scale 7,8,9,10) Stop: 01/17/25 18:10 Last Admin: 01/06/25 09:20 Dose: 1 mg Hydroxyzine HCl (Hydroxyzine Hcl 25 Mg Tab) 25 mg PO Q8H PRN PRN Reason: Anxiety Stop: 02/02/25 18:10 Last Admin: 01/06/25 20:44 Dose: 25 mg Promethazine HCl (Phenergan) 12.5 mg in 50.5 mls @ 202 mls/hr IV Q6H PRN PRN Reason: Nausea And Vomiting Stop: 02/02/25 18:10 Thiamine HCl 100 mg/ Syringe 10 mls @ 2 mls/min IV [facility] Stop: 02/03/25 13:29 Last Admin: 01/07/25 08:29 Dose: 2 mls/min Influenza Virus Vaccine Quadrival (Do Not Administer Flu Vaccine) 1 each N/A PRN PRN PRN Reason: Notification Stop: 02/02/25 18:10 Ketorolac Tromethamine (Ketorolac Tromethamine 15 Mg/Ml Vial) 15 mg IV Q6H PRN PRN Reason: Pain Stop: 01/11/25 09:31 Last Admin: 01/07/25 08:30 Dose: 15 mg Levothyroxine Sodium (Levothyroxine Sodium 25 Mcg Tablet) [facility] [place] [place]: 02/03/25 08:59 Last Admin: 01/07/25 08:28 Dose: 25 mcg Lorazepam (Lorazepam 0.5 Mg Tab) 0.5 mg PO Q8H PRN PRN Reason: Sedation/Anxiety Stop: 02/02/25 18:10 Last Admin: 01/05/25 20:14 Dose: 0.5 mg Lorazepam (Lorazepam 2 Mg/1 Ml Vial) 0.5 mg IV Q8H PRN PRN Reason: Sedation/Anxiety Stop: 02/02/25 18:10 Losartan Potassium (Losartan Potassium 50 Mg Tab) 50 mg PO [facility] Stop: 02/03/25 08:59 Magnesium Hydroxide (Magnesium Hydroxide Susp 30 Ml Udc) 30 ml PO Q24H PRN PRN Reason: Constipation Stop: 02/02/25 18:10 Metoclopramide HCl (Metoclopramide Hcl Inj 5 Mg/Ml 2 Ml Vial) 10 mg IV Q6H PRN PRN Reason: Nausea &/or Vomiting Stop: 02/02/25 18:10 Metoprolol Succinate (Metoprolol Succ 50mg Ext Rel Tab) 50 mg PO QPM [facility] Stop: 02/02/25 20:59 Last Admin: 01/06/25 20:45 Dose: 50 mg Naloxone HCl (Naloxone Hcl 0.4 Mg/1 Ml Vial/Carp) 0.1 mg IV Q5M PRN PRN Reason: Oversedation/Resp depression Stop: 02/02/25 18:10 Ondansetron HCl (Ondansetron Inj 2 Mg/Ml 2 Ml Vial) 4 mg IV Q6H PRN PRN Reason: Nausea &/or Vomiting Stop: 02/02/25 18:10 Ondansetron HCl (Ondansetron 4 Mg Od Tab) 4 mg PO Q6H PRN PRN Reason: Nausea Stop: 02/02/25 18:10 Oxycodone HCl (Oxycodone Hcl Ir 5 Mg Tab (Immediate Release)) 5 - 10 mg PO Q4H PRN PRN Reason: Pain & Pre PT Stop: 01/17/25 18:10 Last Admin: 01/07/25 10:17 Dose: 10 mg Pantoprazole Sodium (Pantoprazole 40 Mg Tab) 40 mg PO QAM [facility] Stop: 02/03/25 08:59 Last Admin: 01/07/25 08:28 Dose: 40 mg Pneumococcal Polyvalent Vaccine (Do Not Administer Pneumococcal Vaccine) 1 each N/A PRN PRN PRN Reason: Notification Stop: 02/02/25 18:10 Polyethylene Glycol (Polyethylene (Miralax) 17 Gm Pack) 17 gm PO DAILY [facility] Stop: 02/04/25 08:59 Pregabalin (Pregabalin 25 Mg Cap) 25 mg PO TID [facility] Stop: 02/04/25 13:59 Last Admin: 01/07/25 08:30 Dose: 25 mg Senna/Docusate Sodium (Docusate Sodium/Senna 50/8.6mg Tab) 2 tab PO HS [facility] Stop: 02/02/25 20:59 Last Admin: 01/06/25 20:38 Dose: Not Given Sodium Biphosphate/Sodium Phosphate (Sod Phosphate/Sod Biphosphate Enema 132 Ml Btl) 132 ml MO ONE PRN PRN Reason: Constipation Stop: 02/02/25 18:10 Vitamin D (Cholecalciferol 25 Mcg (1000 Units) Tab) 50 mcg PO DAILY [facility] Stop: 02/03/25 08:59 Last Admin: 01/07/25 08:29 Dose: 50 mcg
== END 2025-01-07 13:18 | disposition home health service (06) | DRG 427 ==
LOC: ASU 09:51 → 3N 15:24

== ENCOUNTER 2025-01-10 01:57 | Observation (INO) ==
--- NOTE | 2025-01-10 02:21 | Emergency Department Note ---
Impression & Plan Intractable low back pain, S/P spinal surgery ED Provider Note CHIEF COMPLAINT: Back pain HISTORY OF PRESENTING ILLNESS: This 69-year-old male patient presents to the emergency department via EMS with his and son for evaluation of lower back pain that radiates to his lower legs bilaterally. The patient had L2-S1 decompression and spinal fusion on 01/03/[address] Barth and has had pain since that time. Now having increased pain with neuropathy to his lower legs. The patient received 80 mcg of fentanyl prior to arrival via EMS. The patient did not have sciatica symptoms prior to surgery, just after the surgery. No loss of control of his bowel or bladder functions. He feels like he has R>L leg weakness from the pain. He states that he has severe nerve pain down his R>L leg. He had this after surgery before discharge, but the symptoms seem worse. He is not on any blood thinners. No fevers. Denies abdominal pain, nausea, or vomiting. Denies chest pain or SOB. REVIEW OF SYSTEMS: See HPI for pertinent positives and pertinent negatives. ALLERGIES: Lisinopril MEDICATIONS: See below PAST MEDICAL HISTORY: See below PHYSICAL EXAM: VITALS: Vitals are noted on the nurse's note and reviewed by myself. GENERAL: Appears in pain, but non toxic in appearance and in no acute distress. Non-diaphoretic. SKIN: The patient's incision site seems to be healing well without evidence for infection or discharge. HEAD: Normocephalic atraumatic. EYES: Pupils equal round and reactive to light and accommodation. The Extraocular movements intact. NECK: Supple without nuchal rigidity. No cervical spine tenderness. No paraspinous muscle tenderness. No lymphadenopathy. HEART: Regular rate and rhythm without murmurs gallops or rubs. LUNGS: Clear to auscultation bilaterally without wheezes, rales or rhonchi. ABDOMEN: Positive bowel sounds x 4. Normal tympanic percussion. Soft, nontender, without masses or organomegaly. Alba sign negative. MUSCULOSKELETAL: There is tenderness over the lumbar spinous processes. There is also tenderness over the paraspinous muscles of the lumbar spine diffusely. There is no tenderness over the thoracic spine or paraspinous muscles. There are mild muscle spasms present. The patient is slow to move around with maximum tenderness with movement of his legs or flexion of the spine. Positive straight leg raise test laterally. The patient has decreased range of motion and decreased strength of his bilateral lower extremities due to pain. Dorsalis pedis and posterior tibial pulse 2+ and equal bilaterally. NEURO: Patient was alert and oriented to person place and time. The patient is able to still feel sensation to his bilateral lower extremities, but states that it feels more "numb" than usual. DIFFERENTIAL DIAGNOSIS: Differential diagnosis includes fracture, subluxation, cauda equina syndrome, cord compression, disc herniation, muscle spasm, lumbar strain, epidural abscess, discitis, malignancy, transverse myelitis, urinary tract infection, colitis, diverticulitis, kidney stone, among others. ED COURSE AND MEDICAL DECISION MAKING: HISTORY FROM INDEPENDENT HISTORIAN: Additional history obtained from the patient's MEDICATIONS GIVEN: Morphine 6 mg IV, Zofran 4 mg IV, Dilaudid 0.5 mg IV, Tylenol 1000 mg IV, Valium 5 mg IV, Dilaudid 0.25 mg IV. INTERPRETATION OF LABS: I interpreted the labs with full lab results as below in the lab section of this note. Laboratory results pertinent to the emergent complaint are discussed in the MDM section below. The patient was advised to follow up with their PCP and/or specialist(s) for further outpatient monitoring and management of any abnormal results. INTERPRETATION OF IMAGING: Imaging studies were interpreted by myself and read by radiology as per the imaging section of this note. The patient was advised to follow up with their PCP and/or specialist(s) for further outpatient management of any non-emergent abnormal findings. CT scan of the lumbar spine with and without contrast shows no evidence for abscess, hematoma, or other postoperative complications. There are postsurgical changes as well as lumbar spondylosis and degenerative changes present. EXTERNAL RECORDS REVIEWED: I reviewed the patient's most recent admission for his spinal surgery as well as his spinal surgery notes. CONSULTATIONS: Dr. Barth of spinal surgery MDM SUMMARY: I examined the patient. The patient had L2-S1 decompression and spinal fusion on 01/03/[address] Barth. The patient states that he never really had pain control at the time of discharge. However, he is having increased pain in his lower back radiating into both of his legs with intermittent numbness and tingling. He also feels like his lower extremities are weak. No fevers. No abnormal discharge from the incision site. No loss of control of his bowel or bladder functions. An IV lock was placed and labs were drawn. White blood cell count normal at 5.64. Hemoglobin low at 8.6, but stable. Platelet count is normal at 337. Coags are normal. CMP without concerning findings. Urinalysis with trace blood, but no evidence for UTI. CT scan of the lumbar spine with and without contrast shows no evidence for abscess, hematoma, or other postoperative complications. There are postsurgical changes as well as lumbar spondylosis and degenerative changes present. The patient received multiple doses of medications including IV morphine, IV Dilaudid, IV Tylenol, and IV Valium as above without improvement of his symptoms. I spoke with Dr. Barth of spinal surgery who recommended admission of the patient for further evaluation and pain management. Please refer to his dictation for further details. The patient's care was transferred in stable condition. DIAGNOSIS: Intractable back pain status post spinal surgery Past Med/Surg History Problem List (Updated 01/10/25 @ 20:51 by Shayna Strauss PA-C) Intractable low back pain (Acute) CKD (chronic kidney disease), stage III S/P spinal surgery (Acute) Two-level lumbosacral spondylosis with radiculopathy Environmental allergies Sleep disorder Renal lesion Lumbar radiculopathy Thoracic radiculopathy Weight loss Encounter for pre-operative examination Cervical spondylosis (Chronic) ADALGISA (obstructive sleep apnea) Uvular hypertrophy Left shoulder pain (Chronic) Obstructive sleep apnea of adult CPAP Gastro-esophageal reflux Trigeminal neuralgia CURRENTLY WELL CONTROLLED ED (erectile dysfunction) (Chronic) Hypothyroidism (Chronic) CKD (chronic kidney disease) (Chronic) NO SPECIALIST Skin cancer (Chronic) Cervicalgia (Chronic) Hyperlipidemia (Chronic) HTN (hypertension) (Chronic) Right shoulder pain (Chronic) Headache (Acute) Medical History Sarcoidosis Per PCP records- follows routinely with pulm Bronchiectasis Per PCP records- follows routinely with pulm Elevated hemoglobin A1c Hgb A1C 5.6 on 12/13/24 Degenerative joint disease Depression situational - in regards to his chronic pain. pt denies any feelings of hurting himself or others at this time. has had feelings of suicide in the past. Hx of Lyme disease ~2022 - treated at the time. Possible reason for chronic back pain Anaplasmosis hx ~2021 Hx of migraines Hx of acute pancreatitis treated at [facility] inpatient 10/2020 - no problems since. Chronic kidney disease stage 3 - monitors with PCP. Cervical spondylosis GERD (gastroesophageal reflux disease) well controlled and stable History of GI bleed ~2021 - EGD with cauterization History of COVID-2019: loss of taste and smell. resolved. Hyperlipidemia Hypertension Hypothyroidism Sleep apnea cpap at night Trigeminal neuralgia currently controlled. Degenerative disc disease Chronic back pain Hx of squamous cell carcinoma Hx of basal cell carcinoma Osteoarthritis Surgical History S/P cervical spinal fusion C2-C6 (3 levels) Slightly restricted side to side. 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 pt unsure of any other details. H/O uvulectomy History of esophagogastroduodenoscopy (EGD) History of colonoscopy History of surgical removal of squamous cell carcinoma of skin of left catholic Pt states he had skin cancer surgeries- did not specify locations. 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 Beliefs That Will Affect Care: None marital status: Current Living Situation: Spouse current occupational status: employed Other Information That Helps Us Care for You: No Feels Safe at Home: Yes Safety Concerns: Feels Safe At This Time caffeine: Yes Dental Care, Regularly: Yes Physical Activity Frequency: Daily Seatbelt Use: never Sunscreen Use: Yes Assistive Devices: Walker Allergies Allergies Allergy/AdvReac Type Severity Reaction Status Date / Time lisinopril AdvReac Intermediate dry cough Verified 01/10/25 08:26 Home Meds Home Medications Medication Instructions Recorded Confirmed aspirin 81 mg tablet,delayed 81 mg PO QAM 12/01/20 01/10/25 release cholecalciferol (vitamin D3) 50 50 mcg PO DAILY 12/01/20 01/10/25 mcg (2,000 unit) capsule Noreen 2 cap PO QAM 12/03/24 01/10/25 atorvastatin 80 mg tablet 80 mg PO QAM 12/03/24 01/10/25 diclofenac sodium 1 % topical gel 2 g topical QID PRN Pain 12/03/24 01/10/25 losartan 50 mg tablet 50 mg PO QAM 12/03/24 01/10/25 metoprolol succinate 50 mg 50 mg PO QPM 12/03/24 01/10/25 tablet,extended release 24 hr omeprazole 40 mg capsule,delayed 40 mg PO QAM 12/03/24 01/10/25 release ondansetron 4 mg disintegrating 4 mg PO Q6H PRN Nausea 12/03/24 01/10/25 tablet polyethylene glycol 3350 17 17 g PO DAILY 12/03/24 01/10/25 gram/dose oral powder (Miralax) vit B6 0.85 mg-vit B12 1.2 1 tab PO BID ##0 12/03/24 01/10/25 mcg-grape extract 125 mg chewable tablet (Brain Fuel) levothyroxine 25 mcg tablet 25 mcg PO DAILYBB 01/10/25 01/10/25 (Synthroid) Previous Rx's Medication Instructions Recorded fenofibrate nanocrystallized 145 145 mg PO QAM #30 tabs 08/17/ mg tablet hydrochlorothiazide 50 mg tablet 50 mg PO QAM #90 tabs 03/30/21 oxycodone 5 mg tablet 5 mg PO Q6H PRN pain #30 tabs 01/07/25 Results & Data (ED) Vital Signs Vital Signs - 24 hr 01/10/25 01:57 01/10/25 01:57 01/10/25 02:08 Temperature 37.1 C 37.1 C Temperature Source Oral Oral Pulse Rate 78 79 Pulse Rate [Apical] 75 Pulse Rhythm Regular Pulse Rhythm [Apical] Regular Pulse Strength Normal Pulse Strength [Apical] Normal Respiratory Rate 18 18 Respiratory Effort / Characteristics Non-Labored Spontaneous Non-Labored Spontaneous Respiratory Depth Normal Normal Respiratory Pattern Regular Regular Blood Pressure 115/69 Blood Pressure [Right Arm] 115/69 Blood Pressure Mean 84 Blood Pressure Mean [Right Arm] 84 Blood Pressure Position Semi-fowlers Blood Pressure Position [Right Arm] Semi-fowlers Pulse Oximetry 99 97 Oxygen Delivery Method Room Air Room Air Oxygen Flow Rate Sepsis Recent Fever Within 48 Hours No Sepsis New/Unexplained Change in Mental Status N/A Sepsis Action Taken by Nursing No Action Required 01/10/25 04:30 01/10/25 06:00 01/10/25 06:06 Temperature Temperature Source Pulse Rate 70 Pulse Rate [Apical] 62 73 Pulse Rhythm Pulse Rhythm [Apical] Regular Regular Pulse Strength Pulse Strength [Apical] Normal Normal Respiratory Rate 18 18 Respiratory Effort / Characteristics Non-Labored Spontaneous Non-Labored Spontaneous Respiratory Depth Normal Normal Respiratory Pattern Regular Regular Blood Pressure Blood Pressure [Right Arm] 140/61 128/65 Blood Pressure Mean Blood Pressure Mean [Right Arm] 87 86 Blood Pressure Position Blood Pressure Position [Right Arm] Left Lateral Semi-fowlers Pulse Oximetry 97 100 Oxygen Delivery Method Room Air Oxymask Oxygen Flow Rate 2 Sepsis Recent Fever Within 48 Hours Sepsis New/Unexplained Change in Mental Status Sepsis Action Taken by Nursing 01/10/25 07:00 Temperature Temperature Source Pulse Rate Pulse Rate [Apical] 67 Pulse Rhythm Pulse Rhythm [Apical] Pulse Strength Pulse Strength [Apical] Respiratory Rate Respiratory Effort / Characteristics Respiratory Depth Respiratory Pattern Blood Pressure Blood Pressure [Right Arm] 159/79 H Blood Pressure Mean Blood Pressure Mean [Right Arm] 105 Blood Pressure Position Blood Pressure Position [Right Arm] Lying Pulse Oximetry 99 Oxygen Delivery Method Room Air Oxygen Flow Rate Sepsis Recent Fever Within 48 Hours Sepsis New/Unexplained Change in Mental Status Sepsis Action Taken by Nursing Laboratory Data 01/10/25 02:45 01/10/25 02:45 Lab Results 01/10/25 01/10/25 Range/Units 02:45 04:55 WBC 5.64 (4.8-10.8) K/ul RBC 3.00 L (4.70-6.10) M/uL Hgb 8.6 L (14.0-18.0) g/dl Hct 25.0 L (42.0-52.0) % MCV 83.3 (80.0-100.0) fL MCH 28.7 (25.0-34.0) pg MCHC 34.4 (32.0-36.0) g/dL RDW Std Deviation 40.6 (36.4-46.3) fL RDW Coeff of Uyen 13.4 (11.5-14.5) % Plt Count 337 (130-400) K/uL MPV 9.7 (9.4-12.4) fL Immature Gran % (Auto) 0.4 % Neut % (Auto) 72.1 % Lymph % (Auto) 16.0 % Campbell % (Auto) 9.0 % Eos % (Auto) 2.1 % Baso % (Auto) 0.4 % Neut # (Auto) 4.07 (1.40-6.50) K/uL Lymph # (Auto) 0.90 L (1.20-3.40) K/uL Campbell # (Auto) 0.51 (0.11-0.59) K/uL Eos # (Auto) 0.12 (0.00-0.50) K/uL Baso # (Auto) 0.02 (0.00-0.20) K/uL Immature Gran # (Auto) 0.02 (0.01-0.20) K/uL PT 11.0 (9.0-12.0) Seconds INR 1.0 (0.9-1.1) APTT 27 (21-31) Seconds PTT Ratio 1.0 Sodium 140 (136-145) mmol/L Potassium 3.5 (3.5-5.1) mmol/L Chloride 105 (98-107) mmol/L Carbon Dioxide 26 (21-32) mmol/L Anion Gap 9 (3-11) BUN 17 (6-23) mg/dl Creatinine 1.24 (0.6-1.4) mg/dl Est Cr Clr Drug Dosing Not Reportable eGFR 63.33 BUN/Creatinine Ratio 13.7 (10-20) Glucose 100 H (70-99(Fasting)) mg/dl Calcium 9.4 (8.6-10.3) mg/dl Total Bilirubin 0.8 (0.2-1.0) mg/dl AST 21 (13-39) U/L ALT 22 (7-52) U/L Alkaline Phosphatase 14 L (34-104) U/L Total Protein 6.8 (6.0-8.3) gm/dl Albumin 3.9 (3.4-5.0) gm/dl Globulin 2.9 (2.5-4.0) gm/dl Albumin/Globulin Ratio 1.3 (0.9-2) Urine Color Yellow Urine Appearance Clear (Clear) Urine pH >= 9.0 H (4.5-7.5) Ur Specific [place] 1.009 (1.000-1.030) Urine Protein Negative (Negative) Urine Glucose (UA) Negative (Negative) Urine Ketones Negative (Negative) Urine Blood Trace H (Negative) Urine Nitrite Negative (Negative) Urine Bilirubin Negative (Negative) Urine Urobilinogen Negative (Negative) Ur Leukocyte Esterase Negative (Negative) Urine WBC (Auto) 0-5 (0-5) /hpf Urine RBC (Auto) 3-5 H (0-2) /hpf U Hyaline Cast (Auto) 0-2 (0-2) /lpf U Epithel Cells (Auto) 0-2 (0-2) /hpf Urine Bacteria (Auto) None Seen (None Seen) Urine Sperm Present A (None Prsent) Administered Medications Acetaminophen (Acetaminophen 500 Mg Tab) 1,000 mg PO Q8H PRN PRN Reason: MILD Pain Scale 1,2,3 & Pre PT Stop: 02/09/25 11:57 Last Admin: 01/10/25 12:44 Dose: 1,000 mg Documented By: RAYMOND Cyclobenzaprine HCl (Cyclobenzaprine Hcl 10 Mg Tab) 10 mg PO Q8H PRN PRN Reason: Muscle Spasm Stop: 02/09/25 11:57 Last Admin: 01/10/25 12:44 Dose: 10 mg Documented By: RAYMOND Hydromorphone HCl (Hydromorphone Inj 1 Mg/Ml Syringe) 1 mg IV Q3H PRN PRN Reason: severe pain (scale 7-10) Stop: 01/24/25 11:57 Last Admin: 01/10/25 16:48 Dose: 1 mg Documented By: MILLER Dexamethasone 8 mg/ Syringe 2 mls @ 1 mls/min IV Q8H VITALIY Stop: 01/11/25 05:01 Last Admin: 01/10/25 13:42 Dose: 1 mls/min Documented By: RAYMOND Ketorolac Tromethamine (Ketorolac 30 Mg/Ml Vial) 15 mg IV Q6H PRN PRN Reason: Pain Stop: 01/15/25 11:57 Last Admin: 01/10/25 12:45 Dose: 15 mg Documented By: RAYMOND Oxycodone HCl (Oxycodone Hcl Ir 5 Mg Tab (Immediate Release)) 5 - 10 mg PO Q4H PRN PRN Reason: mod to severe pain Stop: 01/24/25 11:57 Last Admin: 01/10/25 12:44 Dose: 10 mg Documented By: RAYMOND Oxycodone HCl (Oxycodone Hcl 20 Mg Tabcr (Oxycontin)) 20 mg PO Q12H VITALIY Stop: 01/24/25 13:29 Last Admin: 01/10/25 13:48 Dose: 20 mg Documented By: RAYMOND Discontinued Medications Dexamethasone (Dexamethasone Sod Inj 4 Mg/Ml Vial) Confirm Administered Dose 8 mg .ROUTE .STK-MED ONE Stop: 01/10/25 12:36 Last Admin: 01/10/25 13:01 Dose: Not Given Documented By: RAYMOND Diazepam (Diazepam 5 Mg/Ml 10ml Vial) 5 mg IV NOW STA Stop: 01/10/25 06:16 Last Admin: 01/10/25 06:21 Dose: 5 mg Documented By: ROSA Hydromorphone HCl (Hydromorphone Inj 0.5 Mg/0.5 Ml Syr) 0.5 mg IV NOW STA Stop: 01/10/25 04:22 Last Admin: 01/10/25 04:24 Dose: 0.5 mg Documented By: ROSA Hydromorphone HCl (Hydromorphone Inj 0.5 Mg/0.5 Ml Syr) 0.25 mg IV NOW STA Stop: 01/10/25 07:24 Last Admin: 01/10/25 07:30 Dose: 0.25 mg Documented By: TYRA Hydromorphone HCl (Hydromorphone Inj 0.5 Mg/0.5 Ml Syr) 0.5 mg IV NOW STA Stop: 01/10/25 10:46 Last Admin: 01/10/25 11:10 Dose: 0.5 mg Documented By: RAYMOND Acetaminophen (Ofirmev) 1,000 mg in 100 mls @ 400 mls/hr IV NOW STA Stop: 01/10/25 04:55 Last Infusion: 01/10/25 05:14 Dose: Infused Documented By: Admin: 01/10/25 04:51 Dose: 400 mls/hr Documented By: ROSA Ioversol (Optiray 320 100ml) 93 ml IV ONCE ONE Stop: 01/10/25 06:17 Last Admin: 01/10/25 06:17 Dose: 93 ml Documented By: BARRETT Morphine Sulfate (Morphine Sulfate 10 Mg/Ml Carp/Vial) 6 mg IV NOW STA Stop: 01/10/25 02:46 Last Admin: 01/10/25 03:11 Dose: 6 mg Documented By: IDD Ondansetron HCl (Ondansetron Inj 2 Mg/Ml 2 Ml Vial) 4 mg IV NOW STA Stop: 01/10/25 02:46 Last Admin: 01/10/25 03:11 Dose: 4 mg Documented By: IDD Imaging Data Radiologist's Impression: Lumbar Spine CT 01/10/25 02:45 EXAM: CT lumbar spine wo/w con CLINICAL HISTORY: Back pain, recent spinal surgery TECHNIQUE: Multiple contiguous axial images were obtained through the lumbar spine without IV contrast. Sagittal and coronal reformatted images were obtained from the axial data. CT scan was performed according to ALARA (as low as reasonable achievable). COMPARISON: None. FINDINGS: Loss of lumbar lordosis - suggest possibility of muscle spasm/positional. Degenerative changes involving lumbar spine in the form of multilevel marginal osteophytes, disc space reduction and facetal arthrosis. Post laminectomy status with interpedicular fixation screws are seen through L2-S1 level. Orthopedic disc device are seen in L2-L3 to L5-S1 level. Lumbar vertebral bodies are maintained in height and alignment. No vertebral estructive changes are seen. Posterior disc osteophyte complex are noted from L1-L2 to L5-S1 level which indents ventral thecal sac. Paravertebral soft tissues are unremarkable. IMPRESSION: 1. Lumbar spondylosis. No obvious acute trauma related abnormality seen. Electronically signed by Son Hall 01-10-2025 07:17 AM Discharge Plan Visit Data Chief Complaint: Back Injury/Pain ED Provider: Miki Ricks ED Midlevel Provider: Shayna Strauss Discharge Problem: Intractable low back pain, S/P spinal surgery Patient Disposition: Admitted As Inpatient Condition: Good Discharge Instructions Interventions: ED Discharge Assessment Last Done: 01/10/25 16:06
[2025-01-10] MEDS: ONDANSETRON INJ 2 MG/ML 2 ML VIAL IV STA (03:11)
[2025-01-10] MEDS: MoRPHine SULFATE 10 MG/ML CARP/VIAL IV STA (03:11)
[2025-01-10 03:24] LABS: Basophils # (auto) 0.02 K/uL (0.00-0.20); Basophils % (auto) 0.4 %; Eosinophils # (auto) 0.12 K/uL (0.00-0.50); Eosinophils % (auto) 2.1 %; Hemoglobin 8.6 g/dl (14.0-18.0); Immature Granulocytes # (auto) 0.02 K/uL (0.01-0.20); Immature Granulocytes % (auto) 0.4 %; Mean Corpuscular Hemoglobin 28.7 pg (25.0-34.0); Mean Corpuscular Hgb Conc 34.4 g/dL (32.0-36.0); Mean Corpuscular Volume 83.3 fL (80.0-100.0); Mean Platelet Volume 9.7 fL (9.4-12.4); Monocytes # (auto) 0.51 K/uL (0.11-0.59); Neutrophils # (auto) 4.07 K/uL (1.40-6.50); Neutrophils % (auto) 72.1 %; Platelet Count 337 K/uL (130-400); RDW Coefficient of Variation 13.4 % (11.5-14.5); RDW Standard Deviation 40.6 fL (36.4-46.3); White Blood Count 5.64 K/ul (4.8-10.8)
[2025-01-10 03:29] LABS: Alanine Aminotransferase 22 U/L (7-52); Albumin Globulin Ratio 1.3 (0.9-2); Albumin Level 3.9 gm/dl (3.4-5.0); Alkaline Phosphatase 14 U/L (34-104); Anion Gap 9 (3-11); Aspartate Aminotransferase 21 U/L (13-39); BUN Creatinine Ratio 13.7 (10-20); Bilirubin,Total 0.8 mg/dl (0.2-1.0); Blood Urea Nitrogen 17 mg/dl (6-23); Calcium 9.4 mg/dl (8.6-10.3); Carbon Dioxide 26 mmol/L (21-32); Chloride 105 mmol/L (98-107); Globulin 2.9 gm/dl (2.5-4.0); Glucose 100 mg/dl (70-99(Fasting)); Potassium 3.5 mmol/L (3.5-5.1); Sodium 140 mmol/L (136-145); Total Protein 6.8 gm/dl (6.0-8.3)
[2025-01-10 04:06] LABS: Partial Thromboplastin Time 27 Seconds (21-31)
[2025-01-10] MEDS: HYDROmorphone INJ 0.5 MG/0.5 ML SYR IV STA ×3 (04:24→11:10)
[2025-01-10] MEDS: ACETAMINOPHEN 1,000 MG/100 ML VIAL IV STA (04:51)
[2025-01-10 05:52] LABS: Appearance Urine Clear (Clear); Bacteria Urine Automated None Seen (None Seen); Bilirubin Urine Negative (Negative); Blood Urine Trace (Negative); Cast Urine Automated 0-2 /lpf (0-2); Color Urine Yellow; Epithelial Cell Urine Auto 0-2 /hpf (0-2); Glucose Urine UA Negative (Negative); Ketones Urine Negative (Negative); Leukocyte Esterase Urine Negative (Negative); Nitrite Urine Negative (Negative); Protein Urine Negative (Negative); Specific Gravity Urine 1.009 (1.000-1.030); Sperm Urine Present (None Prsent); Urobilinogen Urine Negative (Negative); WBC Urine Automated 0-5 /hpf (0-5); pH Urine >= 9.0 (4.5-7.5)
[2025-01-10] MEDS: OPTIRAY 320 100ml IV ONE (06:17)
[2025-01-10] MEDS: diazePAM 5 MG/ML 10ML VIAL IV STA (06:21)
--- NOTE | 2025-01-10 07:18 | CT Scan Report ---
EXAM: CT lumbar spine wo/w con CLINICAL HISTORY: Back pain, recent spinal surgery TECHNIQUE: Multiple contiguous axial images were obtained through the lumbar spine without IV contrast. Sagittal and coronal reformatted images were obtained from the axial data. CT scan was performed according to ALARA (as low as reasonable achievable). COMPARISON: None. FINDINGS: Loss of lumbar lordosis - suggest possibility of muscle spasm/positional. Degenerative changes involving lumbar spine in the form of multilevel marginal osteophytes, disc space reduction and facetal arthrosis. Post laminectomy status with interpedicular fixation screws are seen through L2-S1 level. Orthopedic disc device are seen in L2-L3 to L5-S1 level. Lumbar vertebral bodies are maintained in height and alignment. No vertebral estructive changes are seen. Posterior disc osteophyte complex are noted from L1-L2 to L5-S1 level which indents ventral thecal sac. Paravertebral soft tissues are unremarkable. IMPRESSION: 1. Lumbar spondylosis. No obvious acute trauma related abnormality seen. Electronically signed by Son Hall 01-10-2025 07:17 AM
[2025-01-10] MEDS ORDERED: ONDANSETRON INJ 2 MG/ML 2 ML VIAL IV PRN (11:58)
[2025-01-10] MEDS ORDERED: NALOXONE HCL 0.4 MG/1 ML VIAL/CARP IV PRN (11:58)
[2025-01-10] MEDS ORDERED: PROMETHAZINE 12.5 MG/50.5 ML BAG IV PRN (11:58)
[2025-01-10] MEDS ORDERED: diazePAM 5 MG TABLET PO PRN (11:58)
[2025-01-10] MEDS ORDERED: METOCLOPRAMIDE HCL INJ 5 MG/ML 2 ML VIAL IV PRN (11:58)
[2025-01-10] MEDS ORDERED: ONDANSETRON 4 MG OD TAB PO PRN (11:58)
[2025-01-10] MEDS ORDERED: ACETAMINOPHEN 1,000 MG/100 ML VIAL IV PRN (11:58)
[2025-01-10] MEDS: ACETAMINOPHEN 500 MG TAB PO PRN (12:44)
[2025-01-10] MEDS: CYCLOBENZAPRINE HCL 10 MG TAB PO PRN (12:44)
[2025-01-10] MEDS: oxyCODONE HCL IR 5 MG TAB (IMMEDIATE RELEASE) PO PRN (12:44)
[2025-01-10] MEDS: KETOROLAC 30 MG/ML VIAL IV PRN (12:45)
[2025-01-10] MEDS: DEXAMETHASONE SOD INJ 4 MG/ML VIAL ONE (13:01)
--- NOTE | 2025-01-10 13:23 | History & Physical Report ---
Date of Service January 10, 2025 Assessment & Plan (1) S/P spinal surgery: Plan: Assessment status post multilevel lumbar with lumbar decompression and fusion. Plan at this time I believe he is struggling with postoperative pain secondary to dependency issues. His CAT scan does not demonstrate any abnormality or or loosening. I explained the patient we will have him undergo physical therapy tomorrow aggressive pain regiment and assess his progress throughout the weekend. Admission and Anticipated Discharge Date Admission Date: January 10, 2025 History of Present Illness Chief Complaint: Postoperative back pain Primary Care Provider: Yonathan Hernandez MD This is a 69-year-old male well-known to me the presents the emergency room this morning with worsening back pain status post multilevel lumbar decompression fusion. He states for the past 2 days his pain became uncontrollable with his home medications. He does have a history of chronic oxycodone use and some tolerance. He states that he has pain in both legs. He has been up and ambulating. He urinates without issue. Allergies Allergy/AdvReac Type Severity Reaction Status Date / Time lisinopril AdvReac Intermediate dry cough Verified 01/10/25 08:26 Home Medications Medication Instructions Recorded Confirmed Type fenofibrate nanocrystallized 145 145 mg PO QAM #30 tabs 08/17/20 01/10/25 Rx mg tablet aspirin 81 mg tablet,delayed 81 mg PO QAM 12/01/20 01/10/25 History release cholecalciferol (vitamin D3) 50 50 mcg PO DAILY 12/01/20 01/10/25 History mcg (2,000 unit) capsule hydrochlorothiazide 50 mg tablet 50 mg PO QAM #90 tabs 03/30/21 01/10/25 Rx Noreen 2 cap PO QAM 12/03/24 01/10/25 History atorvastatin 80 mg tablet 80 mg PO QAM 12/03/24 01/10/25 History diclofenac sodium 1 % topical gel 2 g topical QID PRN Pain 12/03/24 01/10/25 History losartan 50 mg tablet 50 mg PO QAM 12/03/24 01/10/25 History metoprolol succinate 50 mg 50 mg PO QPM 12/03/24 01/10/25 History tablet,extended release 24 hr omeprazole 40 mg capsule,delayed 40 mg PO QAM 12/03/24 01/10/25 History release ondansetron 4 mg disintegrating 4 mg PO Q6H PRN Nausea 12/03/24 01/10/25 History tablet polyethylene glycol 3350 17 17 g PO DAILY 12/03/24 01/10/25 History gram/dose oral powder (Miralax) vit B6 0.85 mg-vit B12 1.2 1 tab PO BID ##0 12/03/24 01/10/25 History mcg-grape extract 125 mg chewable tablet (Brain Fuel) oxycodone 5 mg tablet 5 mg PO Q6H PRN pain #30 tabs 01/07/25 01/10/25 Rx levothyroxine 25 mcg tablet 25 mcg PO DAILYBB 01/10/25 01/10/25 History (Synthroid) Past Med/Surg History Problem List CKD (chronic kidney disease), stage III S/P spinal surgery Two-level lumbosacral spondylosis with radiculopathy Environmental allergies Sleep disorder Renal lesion Lumbar radiculopathy Thoracic radiculopathy Weight loss Encounter for pre-operative examination Cervical spondylosis (Chronic) ADALGISA (obstructive sleep apnea) Uvular hypertrophy Left shoulder pain (Chronic) Obstructive sleep apnea of adult CPAP Gastro-esophageal reflux Trigeminal neuralgia CURRENTLY WELL CONTROLLED ED (erectile dysfunction) (Chronic) Hypothyroidism (Chronic) CKD (chronic kidney disease) (Chronic) NO SPECIALIST Skin cancer (Chronic) Cervicalgia (Chronic) Hyperlipidemia (Chronic) HTN (hypertension) (Chronic) Right shoulder pain (Chronic) Headache (Acute) Medical History Sarcoidosis Per PCP records- follows routinely with pulm Bronchiectasis Per PCP records- follows routinely with pulm Elevated hemoglobin A1c Hgb A1C 5.6 on 12/13/24 Degenerative joint disease Depression situational - in regards to his chronic pain. pt denies any feelings of hurting himself or others at this time. has had feelings of suicide in the past. Hx of Lyme disease ~2022 - treated at the time. Possible reason for chronic back pain Anaplasmosis hx ~2021 Hx of migraines Hx of acute pancreatitis treated at [facility] inpatient 10/2020 - no problems since. Chronic kidney disease stage 3 - monitors with PCP. Cervical spondylosis GERD (gastroesophageal reflux disease) well controlled and stable History of GI bleed ~2021 - EGD with cauterization History of COVID-19 2019: loss of taste and smell. resolved. Hyperlipidemia Hypertension Hypothyroidism Sleep apnea cpap at night Trigeminal neuralgia currently controlled. Degenerative disc disease Chronic back pain Hx of squamous cell carcinoma Hx of basal cell carcinoma Osteoarthritis Surgical History S/P cervical spinal fusion C2-C6 (3 levels) Slightly restricted side to side. 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 pt unsure of any other details. H/O uvulectomy History of esophagogastroduodenoscopy (EGD) History of colonoscopy History of surgical removal of squamous cell carcinoma of skin of left jew Pt states he had skin cancer surgeries- did not specify locations. Family History Father Myocardial infarction Diabetes Other No family history of adverse response to anesthesia No family history of bleeding disorder Denies family history of Ovarian cancer Prostate cancer Breast cancer Colorectal cancer Social History Smoking Status: Former smoker Second Hand Exposure: No; Do You Dip or Chew Tobacco: No; Hx Alcohol Use: No Hx Substance Use: No Preferred Language: Cypriot Communication Ability: Effective Train Electronic Technician Required: No Beliefs That Will Affect Care: None marital status: Current Living Situation: Spouse current occupational status: employed Feels Safe at Home: Yes caffeine: Yes Dental Care, Regularly: Yes Physical Activity Frequency: Daily Seatbelt Use: never Sunscreen Use: Yes Assistive Devices: Walker Physical Exam Physical Exam: On exam incision is healing well. There is no erythema no drainage. Some tenderness palpation lumbar musculature. He has breakaway weakness to testing lower extremities. Sensory is intact to cold and light touch. Results & Data Results & Data Vital Signs (Past 12 Hours) Vital Signs Temp Pulse Pulse Resp BP BP Pulse Ox 01/10/25 10:25 74 137/70 99 01/10/25 10:25 74 20 137/70 100 01/10/25 10:13 72 01/10/25 08:00 59 L 18 127/80 92 01/10/25 07:00 67 159/79 H 99 01/10/25 06:06 70 01/10/25 06:00 73 18 128/65 100 01/10/25 04:30 62 18 140/61 97 01/10/25 02:08 79 01/10/25 01:57 37.1 C 75 18 115/69 97 01/10/25 01:57 37.1 C 78 18 115/69 99 O2 Del Method O2 Flow Rate 01/10/25 10:25 Room Air 01/10/25 10:25 Room Air 01/10/25 10:13 01/10/25 08:00 Room Air 01/10/25 07:00 Room Air 01/10/25 06:06 01/10/25 06:00 Oxymask 2 01/10/25 04:30 Room Air 01/10/25 02:08 01/10/25 01:57 Room Air 01/10/25 01:57 Room Air Code Status & VTE Plan VTE Prophylaxis Plan VTE Prophylaxis will be ordered: Yes
[2025-01-10] MEDS: dexAMETHasone 8 MG in SYRINGE 0 ML IV SCH (13:42)
[2025-01-10] MEDS: oxyCODONE HCL 20 MG TABCR (OxyCONTIN) PO SCH (13:48)
[2025-01-10] MEDS: HYDROmorphone INJ 1 MG/ML SYRINGE IV PRN (16:48)
--- NOTE | 2025-01-10 18:25 | Consultation ---
Date of Consultation January 10, 2025 Assessment & Plan (1) Lumbar radiculopathy: (2) S/P spinal surgery: (3) CKD (chronic kidney disease), stage III: (4) HTN (hypertension): (5) Hyperlipidemia: (6) Hypothyroidism: (7) Obstructive sleep apnea of adult: #Lumbar back pain #Lumbar radiculopathy #S/P decompression and fusion L2-S1 on 01/03/[address] Barth Pain not controlled at home. Readmitted today CT Lumbar spine: Post laminectomy status with interpedicular fixation screws are seen through L2-S1 level without reported abnormality Hgb stable at 8.6. Was 8.4 on . Preop Hgb was 11.9 Pain management per ortho PT/OT as appropriate DVT prophylaxis per ortho Incentive spirometry #HTN: Continue home HCTZ, losartan, metoprolol #Hyperlipidemia: Continue atorvastatin, fenofibrate #CKD III: Cr: 1.2 and stable Monitor renal functions, avoid nephrotoxic agents when possible #Hypothyroidism: Continue Synthroid #Gastro-esophageal reflux: Continue PPI #ADALGISA (obstructive sleep apnea): CPAP HS DVT Prophylaxis SCDs for now Disposition per primary service Follows with Dr Yonathan Hernadnez for routine care Pt was seen and care coordinated with Dr Rubi. See addendum Thank you for this consultation. We will follow the patient with you during their hospital stay. You can reach [facility] via [facility] Supervising Physician Co-Signing Physician Notes Patient was seen and examined at bedside, he is admitted for low back pain and paresthesias to BLE. Denies any trouble controlling bowel and bladder. Denies any signs and symptoms indicative of acute infection. I have seen and examined the patient and have discussed the case with the provider above. I agree with the assessment and plan as stated. Incision site looks clean, no erythema no swelling. Time spent: 10 min. History of Present Illness Requesting Physician: Dr Barth Reason for Consultation: medical management Attending Physician: Evert Barth DO History of Present Illness Patient is 69 year old male with PMH HTN, dyslipidemia, CKD III, hypothyroidism, GERD, ADALGISA seen in medical consultation. Patient is recent decompression and fusion L2-S1 by Dr Barth on 01/03/25 and is readmitted today for low back pain and pain and paresthesias to BLE. Reports past 2 days with worsening pain that was not controlled on home pain medication regimen. Low back pain with any attempted ROM. Reports able to ambulate but having pain. Denies fall. States last BM yesterday. Denies any constipation since being home. Reports urinating without difficulty. States intermittent [place] which he relates to not eating well past 2 days and underlying pain. Denies urinary incontinence, dysuria, hematuria, fever/chills, diaphoresis, N/V/D, dizziness, syncope, CP, SOB, cough, sore throat, abdominal pain, extremity edema, rashes. Allergies Allergy/AdvReac Type Severity Reaction Status Date / Time lisinopril AdvReac Intermediate dry cough Verified 01/10/25 08:26 Home Medications Medication Instructions Recorded Confirmed Type fenofibrate nanocrystallized 145 145 mg PO QAM #30 tabs 08/17/20 01/10/25 Rx mg tablet aspirin 81 mg tablet,delayed 81 mg PO QAM 12/01/20 01/10/25 History release cholecalciferol (vitamin D3) 50 50 mcg PO DAILY 12/01/20 01/10/25 History mcg (2,000 unit) capsule hydrochlorothiazide 50 mg tablet 50 mg PO QAM #90 tabs 03/30/21 01/10/25 Rx Noreen 2 cap PO QAM 12/03/24 01/10/25 History atorvastatin 80 mg tablet 80 mg PO QAM 12/03/24 01/10/25 History diclofenac sodium 1 % topical gel 2 g topical QID PRN Pain 12/03/24 01/10/25 History losartan 50 mg tablet 50 mg PO QAM 12/03/24 01/10/25 History metoprolol succinate 50 mg 50 mg PO QPM 12/03/24 01/10/25 History tablet,extended release 24 hr omeprazole 40 mg capsule,delayed 40 mg PO QAM 12/03/24 01/10/25 History release ondansetron 4 mg disintegrating 4 mg PO Q6H PRN Nausea 12/03/24 01/10/25 History tablet polyethylene glycol 3350 17 17 g PO DAILY 12/03/24 01/10/25 History gram/dose oral powder (Miralax) vit B6 0.85 mg-vit B12 1.2 1 tab PO BID ##0 12/03/24 01/10/25 History mcg-grape extract 125 mg chewable tablet (Brain Fuel) oxycodone 5 mg tablet 5 mg PO Q6H PRN pain #30 tabs 01/07/25 01/10/25 Rx levothyroxine 25 mcg tablet 25 mcg PO DAILYBB 01/10/25 01/10/25 History (Synthroid) Patient History Medical History Sarcoidosis Per PCP records- follows routinely with pulm Bronchiectasis Per PCP records- follows routinely with pulm Elevated hemoglobin A1c Hgb A1C 5.6 on 12/13/24 Degenerative joint disease Depression situational - in regards to his chronic pain. pt denies any feelings of hurting himself or others at this time. has had feelings of suicide in the past. Hx of Lyme disease ~2022 - treated at the time. Possible reason for chronic back pain Anaplasmosis hx ~2021 Hx of migraines Hx of acute pancreatitis treated at [facility] inpatient 10/2020 - no problems since. Chronic kidney disease stage 3 - monitors with PCP. Cervical spondylosis GERD (gastroesophageal reflux disease) well controlled and stable History of GI bleed ~2021 - EGD with cauterization History of COVID-2019: loss of taste and smell. resolved. Hyperlipidemia Hypertension Hypothyroidism Sleep apnea cpap at night Trigeminal neuralgia currently controlled. Degenerative disc disease Chronic back pain Hx of squamous cell carcinoma Hx of basal cell carcinoma Osteoarthritis Surgical History S/P cervical spinal fusion C2-C6 (3 levels) Slightly restricted side to side. 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 pt unsure of any other details. H/O uvulectomy History of esophagogastroduodenoscopy (EGD) History of colonoscopy History of surgical removal of squamous cell carcinoma of skin of left confucianism Pt states he had skin cancer surgeries- did not specify locations. Family History Father Myocardial infarction Diabetes Other No family history of adverse response to anesthesia No family history of bleeding disorder Denies family history of Ovarian cancer Prostate cancer Breast cancer Colorectal cancer Social History Smoking Status: Never smoker Second Hand Exposure: No; Do You Dip or Chew Tobacco: No; Tobacco Cessation Education Requested by Patient: No Hx Alcohol Use: No Hx Substance Use: No Preferred Language: Peruvian Communication Ability: Effective Supervisor Grips Required: No Beliefs That Will Affect Care: None marital status: Current Living Situation: Spouse current occupational status: employed Other Information That Helps Us Care for You: No Feels Safe at Home: Yes Safety Concerns: Feels Safe At This Time caffeine: Yes Dental Care, Regularly: Yes Physical Activity Frequency: Daily Seatbelt Use: never Sunscreen Use: Yes Assistive Devices: Walker Review of Systems Review of Systems: All systems reviewed & are unremarkable except as noted in HPI & below Physical Exam Physical Exam: General: mild distress secondary to discomfort, WDWN Head: normocephalic, atraumatic Eyes: conjunctiva non-injected, anicteric ENT: normal inspection external ears, nose, mucous membranes moist Neck: supple, trachea midline Lungs: clear, no respiratory distress, no wheezing/rhonchi/rales CV: RRR, no murmur, no pretibial edema Abd: normal BS, soft, non-tender Back: +incision to back with steri-strips in place without surrounding erythema and no noted discharge Ext: no cyanosis, no calf tenderness; bilateral pedal pushes and pulls intact, sensation to light touch intact Neuro: A&O x 3, no focal deficits noted, normal affect Skin: warm, dry Results & Data Vital Signs (Past 12 Hours) Vital Signs Temp Pulse Pulse Resp BP BP Pulse Ox 01/10/25 16:20 01/10/25 16:20 36.6 C 67 16 154/82 H 96 01/10/25 16:20 01/10/25 15:02 61 01/10/25 14:00 63 134/67 99 01/10/25 13:06 63 12 144/124 H 100 01/10/25 12:03 137/72 100 01/10/25 11:09 77 19 159/83 H 100 01/10/25 10:25 74 137/70 99 01/10/25 10:25 74 20 137/70 100 01/10/25 10:13 72 01/10/25 08:00 59 L 18 127/80 92 01/10/25 07:00 67 159/79 H 99 O2 Del Method O2 Flow Rate 01/10/25 16:20 Nasal Cannula 2 01/10/25 16:20 Nasal Cannula 2 01/10/25 16:20 Nasal Cannula 2 01/10/25 15:02 01/10/25 14:00 01/10/25 13:06 01/10/25 12:03 01/10/25 11:09 01/10/25 10:25 Room Air 01/10/25 10:25 Room Air 01/10/25 10:13 01/10/25 08:00 Room Air 01/10/25 07:00 Room Air Laboratory Results Lumbar Spine CT 01/10/25 02:45 EXAM: CT lumbar spine wo/w con CLINICAL HISTORY: Back pain, recent spinal surgery TECHNIQUE: Multiple contiguous axial images were obtained through the lumbar spine without IV contrast. Sagittal and coronal reformatted images were obtained from the axial data. CT scan was performed according to ALARA (as low as reasonable achievable). COMPARISON: None. FINDINGS: Loss of lumbar lordosis - suggest possibility of muscle spasm/positional. Degenerative changes involving lumbar spine in the form of multilevel marginal osteophytes, disc space reduction and facetal arthrosis. Post laminectomy status with interpedicular fixation screws are seen through L2-S1 level. Orthopedic disc device are seen in L2-L3 to L5-S1 level. Lumbar vertebral bodies are maintained in height and alignment. No vertebral estructive changes are seen. Posterior disc osteophyte complex are noted from L1-L2 to L5-S1 level which indents ventral thecal sac. Paravertebral soft tissues are unremarkable. IMPRESSION: 1. Lumbar spondylosis. No obvious acute trauma related abnormality seen. Electronically signed by Son Hall 01-10-2025 07:17 AM Diagnostic Findings Short CBC 01/10/25 Range/Units 02:45 WBC 5.64 (4.8-10.8) K/ul Hgb 8.6 L (14.0-18.0) g/dl Hct 25.0 L (42.0-52.0) % Plt Count 337 (130-400) K/uL BMP 01/10/25 02:45 Sodium 140 Potassium 3.5 Chloride 105 Carbon Dioxide 26 BUN 17 Creatinine 1.24 Glucose 100 H Calcium 9.4 Liver Function 01/10/25 Range/Units 02:45 Total Bilirubin 0.8 (0.2-1.0) mg/dl AST 21 (13-39) U/L ALT 22 (7-52) U/L Alkaline Phosphatase 14 L (34-104) U/L Albumin 3.9 (3.4-5.0) gm/dl Urine 01/10/25 Range/Units 04:55 Urine Color Yellow Urine Appearance Clear (Clear) Urine pH >= 9.0 H (4.5-7.5) Ur Specific [place] 1.009 (1.000-1.030) Urine Protein Negative (Negative) Urine Glucose (UA) Negative (Negative)
[2025-01-10] MEDS ORDERED: MAGNESIUM HYDROXIDE SUSP 30 ML UDC PO PRN (18:51)
[2025-01-10] MEDS: METOPROLOL SUCC 50MG EXT REL TAB PO SCH (21:42)
[2025-01-11] MEDS: LEVOTHYROXINE SODIUM 25 MCG TABLET PO SCH (06:00)
[2025-01-11] MEDS: POLYETHYLENE (MIRALAX) 17 GM PACK PO SCH (07:41)
[2025-01-11] MEDS: ATORVASTATIN 40 MG TAB PO SCH (07:42)
[2025-01-11] MEDS: ASPIRIN 81 MG ECTAB PO SCH (07:42)
[2025-01-11] MEDS: CHOLECALCIFEROL 25 MCG (1000 UNITS) TAB PO SCH (07:42)
[2025-01-11] MEDS: hydroCHLOROthiazide 25 MG TAB PO SCH (07:43)
[2025-01-11] MEDS: FENOFIBRATE NANOCRYSTALLIZED 145 MG TABLET PO SCH (07:43)
[2025-01-11] MEDS: PANTOprazole 40 MG TAB PO SCH (07:44)
[2025-01-11] MEDS: LOSARTAN POTASSIUM 50 MG TAB PO SCH (07:44)
[2025-01-11] MEDS: HYDROmorphone INJ 0.5 MG/0.5 ML SYR IV PRN (07:50)
[2025-01-11 08:57] LABS: Hematocrit (blood only) 25.2 % (42.0-52.0); Hemoglobin 8.6 g/dl (14.0-18.0); Mean Corpuscular Hemoglobin 28.9 pg (25.0-34.0); Mean Corpuscular Hgb Conc 34.1 g/dL (32.0-36.0); Mean Corpuscular Volume 84.6 fL (80.0-100.0); Mean Platelet Volume 9.7 fL (9.4-12.4); Platelet Count 342 K/uL (130-400); RDW Coefficient of Variation 13.2 % (11.5-14.5); RDW Standard Deviation 40.6 fL (36.4-46.3); Red Blood Count 2.98 M/uL (4.70-6.10); White Blood Count 7.16 K/ul (4.8-10.8)
[2025-01-11 09:13] LABS: BUN Creatinine Ratio 18.6 (10-20); Calcium 9.1 mg/dl (8.6-10.3); Creatinine Clr Calc Pharmacy 61.5 ml/min; Potassium 4.6 mmol/L (3.5-5.1)
--- NOTE | 2025-01-11 10:02 | Hospitalist Progress Note ---
<Statement entered by Javi Espinal DO - 01/11/25 16:04> I have seen and examined the patient and have discussed the case with the advance practice provider. I have reviewed the advanced practitioner's documentation, and I agree with, and take responsibility for that plan of care. Patient states pain is well-controlled. Discussed plan of care as outlined below I spent a total of 7 minutes coordinating, documenting, and providing care for this patient excluding time spent by another provider/QHP. Date of Service January 11, 2025 Assessment & Plan (1) Lumbar radiculopathy: (2) S/P spinal surgery: Plan: Mark Lyle is a 69y/o M with PMHx significant for HTN, HLD, hypothyroidism, ADALGISA on CPAP HS, GERD without esophagitis, CKD stage IIIa, cervical spondylosis, trigeminal neuralgia and migraines who is being seen in routine medical consultation after being readmitted under the service of Dr. Barth for management of uncontrolled postoperative pain after recently undergoing L2-S1 decompression and fusion on 01/03/25. Patient was previously discharged home on 01/07/25 with home PT[facility]OT services through [facility]. Lumbar spine CT with no obvious postoperative abnormalities. Continue PRN pain management as per ortho service. Lyrica added on per patient's request. Appreciate PT/OT evaluations. Goal of returning home with home PT/OT once pain is under better control. (3) Postoperative anemia due to acute blood loss: Plan: Hgb remaining overall stable postoperatively - 8.6 today. No indication to transfuse at this time. Continue to monitor H/H. (4) CKD (chronic kidney disease), stage III: Plan: Cr remains stable, baseline Cr around 1.1-1.3 per chart review. Continue to monitor renal function and avoid nephrotoxic agents as able. (5) HTN (hypertension): Plan: BP has been borderline soft at times. Hold HCTZ for now. Continue losartan and Toprol XL with routine BP monitoring. Other Chronic Medical Conditions: Hypothyroidism - Continue levothyroxine. GERD - Continue PPI. HLD - Continue statin and fenofibrate. ADALGISA - Continue CPAP use HS. DVT Prophylaxis: SCDs/TEDs as per primary service. Code Status: FULL CODE PCP: Yonathan Hernandez MD [Critical access hospital] Disposition: Discharge planning as per primary service. We will follow the patient with you during their hospital stay. You can reach a member of the [facility] Hospitalist Team 17/04 via [employer]. Patient seen in collaboration with Dr. Espinal. Please see addendum. I spent a total of 35 minutes coordinating, documenting, and providing care for this patient excluding time spent in the performance of separately billed services or time spent by another provider/QHP. This included personally reviewing all current laboratories and imaging studies, medical reconciliation, outpatient chart review and discussion with specialists. This chart was completed in part utilizing Speech Voice Recognition Software. Grammatical errors, random word insertions, pronoun errors, and incomplete sentences are an occasional consequence of this system due to software limitations, ambient noise, and hardware issues. Any formal questions or concerns about the content, text, or information contained within the body of this dictation should be directly addressed to the provider for clarification. Admission and Anticipated Discharge Date Admission Date: January 10, 2025 Subjective Patient seen and examined in room N385-2. NAEO. Feels paraesthesias in BLE are slightly improved. Pain partially better but still quite bothersome. Review of Systems Review of Systems: At least ten systems reviewed and negative, except as noted in the subjective section. Physical Exam Physical Exam: General: Older, M. NAD. Laying down in bed. Pleasant. Conversing appropriately. A&Ox4. HEENT: Normocephalic, atraumatic. Conjunctivae normal. External ear and nose normal, oropharynx normal. Respiratory: Normal respiratory effort, lungs clear to auscultation bilaterally. No accessory muscle use. Cardiovascular: Regular rate and rhythm, normal peripheral pulses. No BLE edema. Abdomen/GI: Normal bowel sounds, soft, nondistended, nontender to palpation in all quadrants. Extremities/Musculoskeletal: No cyanosis or clubbing. Actively moves all extremities. 3-4/5 RLE strength. BLE tactile sensation intact. Results & Data Results & Data Vital Signs (Past 12 Hours) Vital Signs Temp Pulse Resp BP Pulse Ox O2 Del Method O2 Flow Rate 01/11/25 07:24 36.5 C 51 L 16 107/55 L 99 Nasal Cannula 2 Laboratory Results Short CBC 01/11/25 Range/Units 08:14 WBC 7.16 (4.8-10.8) K/ul Hgb 8.6 L (14.0-18.0) g/dl Hct 25.2 L (42.0-52.0) % Plt Count 342 (130-400) K/uL BMP 01/11/25 08:14 Sodium 138 Potassium 4.6 D Chloride 105 Carbon Dioxide 26 BUN 21 Creatinine 1.13 Glucose 132 H Calcium 9.1 (4) CKD (chronic kidney disease), stage III Chronic kidney disease stage 3 subtype: stage 3a (GFR 45-59) Qualified Code(s): N18.31 - Chronic kidney disease, stage 3a (5) HTN (hypertension) Hypertension type: unspecified Qualified Code(s): I10 - Essential (primary) hypertension
--- NOTE | 2025-01-11 10:59 | Orthopedic Progress Note ---
Date of Service January 11, 2025 Assessment & Plan (1) Intractable low back pain: Plan: At this time we will continue physical therapy and his current pain regiment. If he progresses appropriately in the next day or so hopefully discharge home early next week. Admission and Anticipated Discharge Date Admission Date: January 10, 2025 Subjective Pain is much improved. He is tolerating physical therapy. Physical Exam Physical Exam: On exam patient appears comfortable. Is in bed. Good strength testing liver left lower extremity. Right lower extremity does some deficits in dorsiflexion. Results & Data Vital Signs (Past 12 Hours) Vital Signs Temp Pulse Resp BP Pulse Ox O2 Del Method O2 Flow Rate 01/11/25 07:24 36.5 C 51 L 16 107/55 L 99 Nasal Cannula 2
[2025-01-11] MEDS: DOCUSATE SODIUM 100 MG CAP PO SCH (11:30)
[2025-01-11] MEDS: PREGABALIN 75 MG CAP PO SCH (15:50)
[2025-01-11] MEDS: CYCLOBENZAPRINE HCL 10 MG TAB PO SCH (20:56)
[2025-01-11] MEDS: ACETAMINOPHEN 500 MG TAB PO SCH (21:01)
[2025-01-12 06:44] LABS: Hematocrit (blood only) 24.8 % (42.0-52.0); Hemoglobin 8.3 g/dl (14.0-18.0); Mean Corpuscular Hemoglobin 28.8 pg (25.0-34.0); Mean Corpuscular Hgb Conc 33.5 g/dL (32.0-36.0); Mean Corpuscular Volume 86.1 fL (80.0-100.0); Mean Platelet Volume 9.8 fL (9.4-12.4); Platelet Count 350 K/uL (130-400); RDW Coefficient of Variation 13.4 % (11.5-14.5); RDW Standard Deviation 42.4 fL (36.4-46.3); Red Blood Count 2.88 M/uL (4.70-6.10); White Blood Count 6.56 K/ul (4.8-10.8)
[2025-01-12 07:12] LABS: BUN Creatinine Ratio 25.8 (10-20); Calcium 8.8 mg/dl (8.6-10.3); Creatinine Clr Calc Pharmacy 54.3 ml/min; Magnesium 1.9 mg/dl (1.7-2.4); Potassium 4.4 mmol/L (3.5-5.1)
--- NOTE | 2025-01-12 08:55 | Hospitalist Progress Note ---
<Statement entered by Javi Espinal, - 01/12/25 14:31> I have seen and examined the patient and have discussed the case with the advance practice provider. I have reviewed the advanced practitioner's documentation, and I agree with, and take responsibility for that plan of care. Patient states still a bit stiff and sore getting out of bed. Seems to be progressing as expected post lumbar surgery Medical issues overall stable Plan of care as outlined below I spent a total of 8 minutes coordinating, documenting, and providing care for this patient excluding time spent by another provider/QHP. Date of Service January 12, 2025 Assessment & Plan (1) Lumbar radiculopathy: (2) S/P spinal surgery: Plan: Mark Lyle is a 69y/o M with PMHx significant for HTN, HLD, hypothyroidism, ADALGISA on CPAP HS, GERD without esophagitis, CKD stage IIIa, cervical spondylosis, trigeminal neuralgia and migraines who is being seen in routine medical consultation after being readmitted under the service of Dr. Barth for management of uncontrolled postoperative pain after recently undergoing L2-S1 decompression and fusion on 01/03/25. Patient was previously discharged home on 01/07/25 with home PT/OT services through [facility]. Lumbar spine CT with no obvious postoperative abnormalities. Continue PRN pain management as per ortho service. Lyrica added on per patient's request. Appreciate PT/OT evaluations. Goal of returning home with home PT/OT once pain is under better control. (3) Postoperative anemia due to acute blood loss: Plan: Hgb remaining overall stable postoperatively. No indication to transfuse at this time. Continue to monitor H/H. (4) CKD (chronic kidney disease), stage III: Plan: Cr remains stable, baseline Cr around 1.1-1.3 per chart review. Continue to monitor renal function and avoid nephrotoxic agents as able. (5) HTN (hypertension): Plan: BP remains soft, hold HCTZ and losartan for now. Continue Toprol XL with routine BP monitoring. Other Chronic Medical Conditions: Hypothyroidism - Continue levothyroxine. GERD - Continue PPI. HLD - Continue statin and fenofibrate. ADALGISA - Continue CPAP use HS. DVT Prophylaxis: SCDs/TEDs as per primary service. Code Status: FULL CODE PCP: Yonathan Hernandez MD [[facility]] Disposition: Discharge planning as per primary service. We will follow the patient with you during their hospital stay. You can reach a member of the [facility]ist Team 17/04 via iNeed. Patient seen in collaboration with Dr. Espinal. Please see addendum. I spent a total of 30 minutes coordinating, documenting, and providing care for this patient excluding time spent in the performance of separately billed services or time spent by another provider/QHP. This included personally reviewing all current laboratories and imaging studies, medical reconciliation, outpatient chart review and discussion with specialists. This chart was completed in part utilizing Speech Voice Recognition Software. Grammatical errors, random word insertions, pronoun errors, and incomplete sentences are an occasional consequence of this system due to software limitations, ambient noise, and hardware issues. Any formal questions or concerns about the content, text, or information contained within the body of this dictation should be directly addressed to the provider for clarification. Admission and Anticipated Discharge Date Admission Date: January 10, 2025 Subjective Patient seen and examined in room N385-2. NAEO. Reports increase in low back pain this morning. Had postoperative bandaging removed. Denies any chest pain or SOB. Review of Systems Review of Systems: At least ten systems reviewed and negative, except as noted in the subjective section. Physical Exam Physical Exam: General: Older, M. NAD. Laying down in bed. Conversing appropriately. A&Ox4. HEENT: Normocephalic, atraumatic. Conjunctivae normal. External ear and nose normal, oropharynx normal. Respiratory: Normal respiratory effort, lungs clear to auscultation bilaterally. No accessory muscle use. Cardiovascular: Regular rate and rhythm, normal peripheral pulses. No BLE edema. Abdomen/GI: Normal bowel sounds, soft, nondistended, nontender to palpation in all quadrants. Extremities/MSK: Incision site w/o any drainage. Mild erythema noted at superior aspect of incision with some TTP. Appears to have a hematoma formation at under his incision site superiorly. Actively moves all extremities. 3-4/5 RLE strength. BLE tactile sensation intact. Results & Data Results & Data Vital Signs (Past 12 Hours) Vital Signs Temp Pulse Resp BP Pulse Ox O2 Del Method 01/12/25 07:06 36.6 C 50 L 16 113/67 99 CPAP Laboratory Results Short CBC 01/11/25 01/12/25 Range/Units 08:14 05:52 WBC 7.16 6.56 (4.8-10.8) K/ul Hgb 8.6 L 8.3 L (14.0-18.0) g/dl Hct 25.2 L 24.8 L (42.0-52.0) % Plt Count 342 350 (130-400) K/uL BMP 01/11/25 01/12/25 08:14 05:52 Sodium 138 138 Potassium 4.6 D 4.4 Chloride 105 105 Carbon Dioxide 26 29 BUN 21 33 H Creatinine 1.13 1.28 Glucose 132 H 95 Calcium 9.1 8.8 (4) CKD (chronic kidney disease), stage III Chronic kidney disease stage 3 subtype: stage 3a (GFR 45-59) Qualified Code(s): N18.31 - Chronic kidney disease, stage 3a (5) HTN (hypertension) Hypertension type: unspecified Qualified Code(s): I10 - Essential (primary) hypertension
[2025-01-12] MEDS ORDERED: HYDROmorphone INJ 1 MG/ML SYRINGE IV PRN (09:35)
[2025-01-12] MEDS ORDERED: KETOROLAC 30 MG/ML VIAL IV PRN (09:43)
--- NOTE | 2025-01-12 09:45 | Orthopedic Progress Note ---
Date of Service January 12, 2025 Assessment & Plan (1) Intractable low back pain: Plan: This time patient is still requiring considerable medication to manage his pain. He is improving and tolerating physical therapy. I will have him undergo therapy today and hopefully discharge tomorrow. Admission and Anticipated Discharge Date Admission Date: January 10, 2025 Subjective Patient is continue to struggle with pain mostly in his back. He improved with physical therapy yesterday. Physical Exam Physical Exam: On exam is in the chair at the bedside. Still demonstrates weakness to the right dorsiflexion. Sensory is intact. Results & Data Vital Signs (Past 12 Hours) Vital Signs Temp Pulse Resp BP Pulse Ox O2 Del Method 01/12/25 07:06 36.6 C 50 L 16 113/67 99 CPAP
[2025-01-12] MEDS: KETOROLAC TROMETHAMINE 15 MG/ML VIAL IV SCH (10:38)
[2025-01-12] MEDS: HYDROmorphone INJ 0.5 MG/0.5 ML SYR IV STA (10:42)
[2025-01-12] MEDS: MoRPHine SULFATE 2 MG/ML CARP IV PRN (20:53)
[2025-01-13 07:10] LABS: Hematocrit (blood only) 23.9 % (42.0-52.0); Mean Corpuscular Hemoglobin 29.2 pg (25.0-34.0); Mean Corpuscular Hgb Conc 33.5 g/dL (32.0-36.0); Mean Corpuscular Volume 87.2 fL (80.0-100.0); Mean Platelet Volume 9.3 fL (9.4-12.4); Platelet Count 324 K/uL (130-400); RDW Coefficient of Variation 13.6 % (11.5-14.5); RDW Standard Deviation 42.5 fL (36.4-46.3); Red Blood Count 2.74 M/uL (4.70-6.10); White Blood Count 3.89 K/ul (4.8-10.8)
[2025-01-13 07:26] LABS: BUN Creatinine Ratio 25.5 (10-20); Calcium 8.4 mg/dl (8.6-10.3); Creatinine Clr Calc Pharmacy 43.2 ml/min; Magnesium 1.8 mg/dl (1.7-2.4); Potassium 4.6 mmol/L (3.5-5.1)
--- NOTE | 2025-01-13 08:15 | Hospitalist Progress Note ---
Date of Service January 13, 2025 Assessment & Plan (1) Lumbar radiculopathy: (2) S/P spinal surgery: Plan: This is a 69y/o M with PMHx significant for HTN, HLD, hypothyroidism, ADALGISA on CPAP HS, GERD without esophagitis, CKD stage IIIa, cervical spondylosis, trigem inal neuralgia and migraines who is being seen in routine medical consultation after being readmitted under the service of Dr. Barth for management of uncontrolled postoperative pain after recently undergoing L2-S1 decompression and fusion on 01/03/25. Patient was previously discharged home on 01/07/25 with home PT/OT services through [facility]. Lumbar spine CT with no obvious postoperative abnormalities. Continue PRN pain management as per ortho service. Lyrica added on per patient's request. Current regimen: Scheduled Tylenol 1,000mg Q8H, Flexeril 10mg TID, Oxycodone 20mg Q12, PRN oxycodone 5-10mg Q4H PRN breakthrough pain Discontinued Toradol given CHANI Continue bowel regimen Appreciate PT/OT evaluations. Goal of returning home with home PT/OT once pain is under better control, primary service anticipating tomorrow (3) Postoperative anemia due to acute blood loss: Plan: Hgb remaining overall stable postoperatively. No indication to transfuse at this time. Continue to monitor H/H. (4) CHANI (acute kidney injury): (5) CKD (chronic kidney disease), stage III: Plan: Cr elevated at 1.61 today (baseline ~1.1-1.3) Discontinued Toradol, continue holding losartan Encouraged fluids PO Continue to monitor renal function and avoid nephrotoxic agents as able (6) HTN (hypertension): Plan: BP remains soft, hold HCTZ and losartan for now. Continue Toprol XL with routine BP monitoring. Other Chronic Medical Conditions: Hypothyroidism - Continue levothyroxine GERD - Continue PPI HLD - Continue statin and fenofibrate ADALGISA - CPAP HS DVT Prophylaxis: SCDs/TEDs as per primary service Code Status: FULL CODE PCP: Yonathan Hernandez MD ([facility]) Disposition: Discharge planning as per primary service. We will follow the patient with you during their hospital stay. You can [facility] a [facility] via [employer]. Patient seen in collaboration with Dr. Rios. Please see addendum. I spent a total of 50 minutes coordinating, documenting, and providing care for this patient excluding time spent in the performance of separately billed services or time spent by another provider/QHP. This included personally reviewing all current laboratories and imaging studies, medical reconciliation, outpatient chart review and discussion with specialists. Admission and Anticipated Discharge Date Admission Date: January 10, 2025 Supervising Physician Co-Signing Physician Notes Attending addendum: The patient was seen and examined in medical floor. He is a status post spinal surgery and has been doing better and like to be discharged in a day or 2. He remains medically stable and denies any significant symptoms On examination Remains hemodynamically stable with unremarkable physical examination He was noted to have minimally increased creatinine and was advised to more fluid orally and also will be given 1 L of normal saline to see the improvement. His labs, medications and imaging studies reviewed and agree with assessment plan as outlined above by Michelle Garcia PA-C and take the full responsibility of care in the hospital. Total time taken in documenting all this was [address] Robbin Rios Subjective Seen and examined in 385-2. Ambulated some in the halls this AM and sitting in bedside chair. Pain improved from yesterday although still with RLE weakness. Feels lyrica and Flexeril combination helping with pain. No F/C, lightheadedness, CP, SOB, N/V, abd pain, dysuria, diarrhea or constipation. Review of Systems Review of Systems: At least ten systems reviewed and negative except as noted in the HPI. Physical Exam Physical Exam: Gen: WD/WN, NAD, sitting in bedside chair, A&Ox3 HEENT: Normocephalic, atraumatic, conjunctivae moist, sclerae anicteric, mucous membranes moist Lung: Clear to Auscultation bilaterally Heart: Regular rate, regular rhythm Abdomen: Soft, NT, ND +BS x 4 Extremities: LLE strength 5/5, RLE weakness noted, no edema Skin: Warm, no rash Results & Data Results & Data Vital Signs (Past 12 Hours) Vital Signs Temp Pulse Resp BP BP Pulse Ox O2 Del Method 01/13/25 07:57 36.3 C L 57 L 19 145/78 H 98 Room Air 01/12/25 22:04 36.6 C 80 18 120/76 97 Room Air 01/12/25 20:45 CPAP Laboratory Results Short CBC 01/13/25 Range/Units 06:45 WBC 3.89 L (4.8-10.8) K/ul Hgb 8.0 L (14.0-18.0) g/dl Hct 23.9 L (42.0-52.0) % Plt Count 324 (130-400) K/uL BMP 01/13/25 06:45 Sodium 141 Potassium 4.6 Chloride 107 Carbon Dioxide 29 BUN 41 H Creatinine 1.61 H D Glucose 88 Calcium 8.4 L Diagnostic Findings Lumbar Spine CT 01/10/25 02:45 EXAM: CT lumbar spine wo/w con CLINICAL HISTORY: Back pain, recent spinal surgery TECHNIQUE: Multiple contiguous axial images were obtained through the lumbar spine without IV contrast. Sagittal and coronal reformatted images were obtained from the axial data. CT scan was performed according to ALARA (as low as reasonable achievable). COMPARISON: None. FINDINGS: Loss of lumbar lordosis - suggest possibility of muscle spasm/positional. Degenerative changes involving lumbar spine in the form of multilevel marginal osteophytes, disc space reduction and facetal arthrosis. Post laminectomy status with interpedicular fixation screws are seen through L2-S1 level. Orthopedic disc device are seen in L2-L3 to L5-S1 level. Lumbar vertebral bodies are maintained in height and alignment. No vertebral estructive changes are seen. Posterior disc osteophyte complex are noted from L1-L2 to L5-S1 level which indents ventral thecal sac. Paravertebral soft tissues are unremarkable. IMPRESSION: 1. Lumbar spondylosis. No obvious acute trauma related abnormality seen. Electronically signed by Son Hall 01-10-2025 07:17 AM (5) CKD (chronic kidney disease), stage III Chronic kidney disease stage 3 subtype: stage 3a (GFR 45-59) Qualified Code(s): N18.31 - Chronic kidney disease, stage 3a (6) HTN (hypertension) Hypertension type: unspecified Qualified Code(s): I10 - Essential (primary) hypertension
--- NOTE | 2025-01-13 09:56 | Orthopedic Progress Note ---
Date of Service January 13, 2025 Assessment & Plan (1) Intractable low back pain: Plan: At this time we will continue with physical therapy today. Will arrange home PT if possible. Anticipate discharge home tomorrow. Admission and Anticipated Discharge Date Admission Date: January 10, 2025 Subjective Patient's back pain has improved from yesterday. He is more comfortable with ambulation. Physical Exam Physical Exam: On exam patient is in the chair at the bedside. EXTR appreciable strength deficits to the right lower extremity compared to the left but he is comfortable. Results & Data Vital Signs (Past 12 Hours) Vital Signs Temp Pulse Resp BP BP Pulse Ox O2 Del Method 01/13/25 07:57 36.3 C L 57 L 19 145/78 H 98 Room Air 01/12/25 22:04 36.6 C 80 18 120/76 97 Room Air
[2025-01-13] MEDS: SODIUM CHLORIDE 0.9% 1,000 ML IV SCH (17:05)
[2025-01-13 20:29] VITALS: RESP 16; TEMP 97.7; O2SAT 97
[2025-01-14 07:06] VITALS: BP 111/66; PULSE 61
[2025-01-14 07:39] LABS: Hematocrit (blood only) 25.4 % (42.0-52.0); Hemoglobin 8.3 g/dl (14.0-18.0); Mean Corpuscular Hemoglobin 28.5 pg (25.0-34.0); Mean Corpuscular Hgb Conc 32.7 g/dL (32.0-36.0); Mean Corpuscular Volume 87.3 fL (80.0-100.0); Mean Platelet Volume 9.5 fL (9.4-12.4); Platelet Count 356 K/uL (130-400); RDW Coefficient of Variation 13.4 % (11.5-14.5); RDW Standard Deviation 42.1 fL (36.4-46.3); Red Blood Count 2.91 M/uL (4.70-6.10); White Blood Count 5.32 K/ul (4.8-10.8)
[2025-01-14 07:48] LABS: BUN Creatinine Ratio 23.3 (10-20); Calcium 8.5 mg/dl (8.6-10.3); Creatinine Clr Calc Pharmacy 57.9 ml/min; Potassium 4.2 mmol/L (3.5-5.1)
--- NOTE | 2025-01-14 08:10 | Hospitalist Progress Note ---
Date of Service January 14, 2025 Assessment & Plan (1) Lumbar radiculopathy: (2) S/P spinal surgery: Plan: This is a 69y/o M with PMHx significant for HTN, HLD, hypothyroidism, ADALGISA on CPAP HS, GERD without esophagitis, CKD stage IIIa, cervical spondylosis, trigem inal neuralgia and migraines who is being seen in routine medical consultation after being readmitted under the service of Dr. Barth for management of uncontrolled postoperative pain after recently undergoing L2-S1 decompression and fusion on 01/03/25. Patient was previously discharged home on 01/07/25 with home PT/OT services through [facility]. Lumbar spine CT with no obvious postoperative abnormalities Significant improvement to nerve pain with lyrica Dr. Barth discharging with Oxycodone 20mg Q12, PRN oxycodone 5-10mg Q4H PRN breakthrough pain, continue Flexeril 10mg TID PRN and Lyrica 75mg BID Discontinued Toradol given CHANI Continue bowel regimen Returning home with home PT/OT today per primary (3) Postoperative anemia due to acute blood loss: Plan: Hgb remaining overall stable postoperatively : hgb 8.3today No indication to transfuse at this time (4) CHANI (acute kidney injury): Plan: Resolved (5) CKD (chronic kidney disease), stage III: Plan: Cr returned to baseline 1.2 today (from 1.6 yesterday) Discontinued Toradol, continue holding losartan Encouraged fluids PO Continue to monitor renal function and avoid nephrotoxic agents as able (6) HTN (hypertension): Plan: BP remains soft, okay to resume losartan on discharge Communicated with patient and dc summary to hold HCTZ until PCP follow up given lower normal BP throughout admission Continue Toprol XL with hold parameters Other Chronic Medical Conditions: Hypothyroidism - Continue levothyroxine GERD - Continue PPI HLD - Continue statin and fenofibrate ADALGISA - CPAP HS DVT Prophylaxis: SCDs/TEDs as per primary service Code Status: FULL CODE PCP: Yonathan Hernandez MD ([facility]) Disposition: Discharge planning as per primary service. We will follow the patient with you during their hospital stay. You can reach a member of the [facility]ist Team 17/04 via LiveProfile. Patient seen in collaboration with Dr. Rios. Please see addendum. I spent a total of 50 minutes coordinating, documenting, and providing care for this patient excluding time spent in the performance of separately billed services or time spent by another provider/QHP. Admission and Anticipated Discharge Date Admission Date: January 10, 2025 Subjective Seen and examined in 285-2. Still with persistent back pain but improved from yesterday, able to ambulate with a walker in the halls. Feels motivated to get stronger and ready for discharge home. No F/C, CP, SOB, N/V, abd pain, dysuria. Passing flatus, no bowel movement while admitted. Review of Systems Review of Systems: At least ten systems reviewed and negative except as noted in the HPI. Physical Exam Physical Exam: Gen: WD/WN, NAD, sitting in bedside chair, A&Ox3 HEENT: Normocephalic, atraumatic, conjunctivae moist, sclerae anicteric, mucous membranes moist Lung: Clear to Auscultation bilaterally Heart: Regular rate, regular rhythm Abdomen: Soft, NT, ND +BS x 4 Extremities: LLE strength 5/5, RLE weakness noted, no edema Skin: Warm, no rash Results & Data Results & Data Vital Signs (Past 12 Hours) Vital Signs Temp Pulse Resp BP Pulse Ox O2 Del Method 01/14/25 07:05 36.5 C 61 16 111/66 97 Room Air 01/13/25 21:05 62 123/74 Laboratory Results Short CBC 01/14/25 Range/Units 06:55 WBC 5.32 (4.8-10.8) K/ul Hgb 8.3 L (14.0-18.0) g/dl Hct 25.4 L (42.0-52.0) % Plt Count 356 (130-400) K/uL BMP 01/14/25 06:55 Sodium 140 Potassium 4.2 Chloride 106 Carbon Dioxide 31 BUN 28 H Creatinine 1.20 D Glucose 84 Calcium 8.5 L Diagnostic Findings Lumbar Spine CT 01/10/25 02:45 EXAM: CT lumbar spine wo/w con CLINICAL HISTORY: Back pain, recent spinal surgery TECHNIQUE: Multiple contiguous axial images were obtained through the lumbar spine without IV contrast. Sagittal and coronal reformatted images were obtained from the axial data. CT scan was performed according to ALARA (as low as reasonable achievable). COMPARISON: None. FINDINGS: Loss of lumbar lordosis - suggest possibility of muscle spasm/positional. Degenerative changes involving lumbar spine in the form of multilevel marginal osteophytes, disc space reduction and facetal arthrosis. Post laminectomy status with interpedicular fixation screws are seen through L2-S1 level. Orthopedic disc device are seen in L2-L3 to L5-S1 level. Lumbar vertebral bodies are maintained in height and alignment. No vertebral estructive changes are seen. Posterior disc osteophyte complex are noted from L1-L2 to L5-S1 level which indents ventral thecal sac. Paravertebral soft tissues are unremarkable. IMPRESSION: 1. Lumbar spondylosis. No obvious acute trauma related abnormality seen. Electronically signed by Son Hall 01-10-2025 07:17 AM (5) CKD (chronic kidney disease), stage III Chronic kidney disease stage 3 subtype: stage 3a (GFR 45-59) Qualified Code(s): N18.31 - Chronic kidney disease, stage 3a (6) HTN (hypertension) Hypertension type: unspecified Qualified Code(s): I10 - Essential (primary) hypertension
--- NOTE | 2025-01-14 11:26 | Discharge Summary ---
Date of Service January 14, 2025 Admission HPI Per Admitting Provider This is a 69-year-old male well-known to me the presents the emergency room this morning with worsening back pain status post multilevel lumbar decompression fusion. He states for the past 2 days his pain became uncontrollable with his home medications. He does have a history of chronic oxycodone use and some tolerance. He states that he has pain in both legs. He has been up and ambulating. He urinates without issue. Principal Diagnosis Intractable lumbar pain status post multilevel decompression fusion Discharge Data Allergies Allergy/AdvReac Type Severity Reaction Status Date / Time lisinopril AdvReac Intermediate dry cough Verified 01/10/25 08:26 Consultations 01/10/25 07:32 ED Decision to Admit Stat 01/10/25 11:58 Consult Internal Medicine Routine Ordered Studies 01/10/25 02:45 CT lumbar spine wo/w con Stat Hospital Course (1) Intractable low back pain: Patient returns to the hospital postoperatively with intractable back and bilateral leg pain. I admitted the patient had him undergo pain management and initiated physical therapy. He progressed appropriately throughout his stay. Pain much better controlled. Subsequently fit for discharge home. Discharge orders instructions on chart for further review. Total Time Total Time Spent Total Time Spent (In Minutes): 20 minutes Discharge Plan Discharge Items Patient Disposition: Home - Home Health Services Reason For Visit: BACK PAIN Discharge Diagnosis: Status post multilevel lumbar decompression and fusion Condition on Discharge: Good Activity: As commented below Non-emergency contact: Primary Care Provider Call non-emergency contact if: you have any medication questions Follow-up/Referrals: Yonathan Hernandez MD [Primary Care Provider] - Diet: Regular Addtl Attending Provider Instructions: ACTIVITY RECOMMENDATIONS: SELF CARE INSTRUCTIONS AFTER THORACIC/LUMBAR FUSIONS 1. You may walk to your tolerance. It is good exercise for your legs and back. Expect some back and intermittent leg aches and pains. 2. You may perform "counter-top" level activities (make a sandwich, omer with a project, etc.). 3. No bending or lifting of more than 10 pounds or back twisting of any nature (roll like a log when turning in bed). 4. You may ride in a car for 20-30 minutes at a time. No driving until after your first visit with your doctor. 5. Frequent changes of position and restricting sitting to 30 minutes at a time will help limit the amount of back spasms and stiffness you may experience. 6. You may discontinue the use of ambulatory aids (cane, crutches, etc.) once your strength and confidence allow. 7. You may program manufacturing leader the shower and let water strike your incision when you arrive home at least once daily. Do not take a tub bath, sit in a hot tub or go into a swimming pool until after your first recheck in the office. 8. You may resume previous diet. SPECIAL CARE INSTRUCTIONS: VERY IMPORTANT TO READ AND REVIEW A. Your surgical incision has been closed with a cosmetic suture under the skin that will dissolve in about 6 weeks. In 14 days, you can use a pair of clean scissors and cut the suture that is left outside of the skin at the ends of your incision. 1. The small skin tapes can be removed 7 days after surgery if they have not fallen off by that point. 2. You may keep the wound open to air as much as possible to promote healing after post-op day number 5 unless told otherwise by your doctor. 3. If you think the wound looks like it is becoming infected (redness or worsening drainage) and/or you are experiencing fever, chill or worsening back pain and muscle spasms, contact the office so that we may evaluate you as soon as possible. B. Complications are uncommon, but please contact us if you have any signs or symptoms of: 1. wound infection (fever higher than 102.5 degrees F, redness, separation of wound, drainage, or increasing pain from the incision) 2. blood clots in legs (pain, swelling, redness and warmth in legs) 3. urinary tract infection (fever higher than 102.5 degrees F, burning upon urination or increased frequency of urination) 4. nerve problems (inability to walk on your toes or heels, numbness, loss of bowel or bladder control) 5. any other symptoms that concern you C. Please call the office at if you have any concerns or questions about your operation or recovery. D. No smoking! Smoking drastically decreases the chance of a solid fusion. E. Do not take any anti-inflammatory medications (Indocin, Advil, Motrin, Aspirin, Naprosyn, etc.) as these may inhibit the chance of a solid fusion. Tylenol is okay to take for pain. MANAGING PAIN AFTER SPINAL SURGERY 1. Narcotic medication is intended for short-term use and will be provided for surgical pain. Surgical pain usually lasts for a period of 4-6 weeks. Narcotic medication includes Percocet, Vicodin, Darvocet, Tylenol #3 or Lortab. 2. Longer-term pain is more appropriately treated with non-narcotic medication such as Tylenol ES. 3. Muscle spasm is not appropriately treated with narcotics. Muscle relaxers such as Soma, Flexeril or Skelaxin can be used along with Tylenol ES. 4. Remember that we all live with some "aches and pains". This is not unusual or uncommon after an injury or as we get older. a. Back pain is expected and may include muscle spasms for 4 to 6 weeks after surgery. The pain should gradually improve. If the pain worsens for no apparent reason, please contact the office. b. Intermittent leg pain may also be experienced and should not be concerned about unless it worsens for no apparent reason. If so, please contact the office. 5. We will provide appropriate medication within the normal guidelines of their prescribed use. We will also be very cautious and aware of potential abuse and extended duration of patients' medication needs. a. Pain medications are for your comfort and to assist with sleep and rest so that the tissue can heal. They are not provided in order to return to normal activity and should not be used through the day. To do so or worsening pain at night can result from ongoing tissue damage and development of tolerance to the prescribed medicine. 6. Please allow 2-3 days to process refills. Prescriptions will not be mailed but must be picked up at the office. FOLLOW UP VISIT: Keep your scheduled follow-up appointment. Please resume losartan on discharge. Continue to hold hydrochlorothiazide until PCP follow up due to lower blood pressure while in hospital. Any questions, please call the office at . Pending Studies at Discharge: No Stand-Alone Forms: My [employer], Smoking Cessation Medications and HI Order Prescriptions: New oxycodone [OxyContin] 20 mg Tablet,Oral Only,Ext.Rel.12 Hr 20 mg PO Q12H Qty: 20 0RF Continued fenofibrate nanocrystallized 145 mg tablet 145 mg PO QAM Qty: 30 5RF Rx Instructions: TAKE 1 TABLET BY MOUTH DAILY WITH FOOD cholecalciferol (vitamin D3) 50 mcg (2,000 unit) capsule 50 mcg PO DAILY Rx Instructions: Pt has been taking 2000 units BID for 2 weeks but will go back to 2000 units daily after surgery aspirin 81 mg tablet,delayed release (DR/EC) 81 mg PO QAM losartan 50 mg Tablet 50 mg PO QAM atorvastatin 80 mg Tablet 80 mg PO QAM metoprolol succinate 50 mg Tablet Extended Release 24 Hr 50 mg PO QPM ondansetron 4 mg Tablet,Disintegrating 4 mg PO Q6H PRN (Reason: Nausea) diclofenac sodium 1 % Gel 2 g TOPICAL QID PRN (Reason: Pain) Rx Instructions: apply to single elbow, wrist or hand; for hand includes palm/fingers/back of hand omeprazole 40 mg capsule,delayed release(DR/EC) 40 mg PO QAM polyethylene glycol 3350 [Miralax] 17 gram/dose Powder 17 g PO DAILY Brain Fuel 0.85 mg-1.2 mcg-125 mg Tablet,Chewable 1 tab PO BID Qty: 0 Noreen 2 cap PO QAM oxycodone 5 mg tablet 5 mg PO Q6H PRN (Reason: pain) Qty: 30 0RF levothyroxine [Synthroid] 25 mcg tablet 25 mcg PO DAILYBB Held hydrochlorothiazide 50 mg tablet 50 mg PO QAM Qty: 90 0RF Rx Instructions: TAKE 1 TABLET BY MOUTH DAILY IN THE MORNING WITH ORANGE JUICE Discharge Orders: Discharge Order (Routine); Ordered 01/14/25 Ordered By: Evert Barth Admission Data Admit Date/Time: 01/10/25 07:56 Attending Provider: Evert Barth Admit Provider: Evert Barth Primary Care Provider: Yonathan Hernandez Other Providers: Dyan Wayne.; Katie Rios; Evert Barth; [facility]
== END 2025-01-14 12:35 | disposition home health service (06) ==
LOC: ED 01:57 → EDINP 07:56 → INTOOBSV 07:56 → 3N 16:06